=== PATIENT | female | born 1950 | race Caucasian/White ===

== ENCOUNTER 2024-06-22 11:38 | Observation (INO) | payer MEDICARE, SELFPAY ==
[2024-06-22] VITALS (12 sets, daily range): BP systolic 137–192; BP diastolic 63–98; PULSE 72–96; RESP 16–18; TEMP 36.3–36.8; O2SAT 95–98; BMI 31.7
--- NOTE | ~2024-06-22 | NM_ITS ---
EXAMINATION: NM paul stress w perfusion DATE: 06/24/2024 14:26 INDICATION: Chest pain TECHNIQUE: Rest images were obtained following intravenous administration of 8.9 mCi Tc99m tetrofosmi n (Myoview). The patient was infused intravenously with Lexiscan (Regadenoson). Then, 28.3 mCi Tc99m tetrofosmin (Myoview) was administered intravenously, and stress images were obtained. Data was recon structed into short axis and horizontal and vertical long axis SPECT images. Gated SPECT images were also obtained. COMPARISON: None. FINDINGS: There is no definite reversible or fixed perfusion abnormality on the post stress imaging t o suggest ischemia or infarction. There is normal left ventricular chamber size, wall motion and eje ction fraction. Left ventricular ejection fraction measures >70%. IMPRESSION: 1. Normal myocardial perfusion during stress. 2. Left ventricular ejection fraction measuring >70%. Reviewed, dictated and finalized at location A.
--- NOTE | ~2024-06-22 | CT_ITS ---
EXAMINATION:CT diagnostic chest w con DATE: 06/22/2024 12:35 INDICATION: Lung mass. Abnormal chest radiograph. TECHNIQUE: Computed tomography (CT) of the chest was performed with 75 mL Omnipaque 350 intravenous c ontrast. Automated exposure control and iterative reconstruction technique were employed. The dose-le ngth product (DLP) was 230.18 mGy-cm. COMPARISON: Chest single view 06/22/2024 FINDINGS: The lungs demonstrate mild atelectasis. There is a left posterior diaphragmatic hernia cont aining fat correlating with the chest radiograph abnormality. No pleural effusion. The heart size is normal. No pericardial effusion. There is an aberrant right subclavian artery. There is cortical thin alba of the kidneys. There is severe thoracic spondylosis. There is mild chronic height loss of multi ple vertebral bodies. IMPRESSION: 1. Left posterior diaphragmatic hernia containing fat correlating with the chest radiograph abnormali ty. Reviewed, dictated and finalized at location A. IMPRESSION: 1. Left posterior diaphragmatic hernia containing fat correlating with the ches t radiograph abnormality.
--- NOTE | ~2024-06-22 | XR_ITS ---
EXAMINATION: XR chest 1V portable DATE: 06/22/2024 12:04 INDICATION: Chest pain. Hypertension. TECHNIQUE: A single frontal view of the chest was obtained. COMPARISON: Chest 2 views 01/14/2007 FINDINGS: There is a mass at left lung base. There is mild atelectasis at right lung base. No pleural effusion or pneumothorax. The heart size is normal. IMPRESSION: 1. Mass at left lung base suspicious for primary bronchogenic carcinoma. Chest CT is recommended. Reviewed, dictated and finalized at location A.
--- NOTE | 2024-06-22 11:44 | ECG_ITS ---
Test Date: 2024-06-22 11:41:58 Measurements Intervals [place] Rate: 87 P: 50 NE: 159 QRS: 28 QRSD: 84 T: 13 QT: 347 QTc: 418 Interpretive Statements SINUS RHYTHM WITH OCCASIONAL VENTRICULAR PREMATURE COMPLEXES NONSPECIFIC T-WAVE ABNORMALITY No previous ECG available for comparison Electronically Signed On 06-22-2024 13:34:55 CDT by Joseph Fregoso M.D.
[2024-06-22 12:01] LABS: Basophils Absolute Auto 0.1 K/mm3 (0.0-0.1); Basophils Percent Auto 0.8 % (0.2-1.2); Eosinophils Absolute Auto 0.1 K/mm3 (0-0.3); Eosinophils Percent Auto 0.8 % (0-4.4); Hematocrit 39.7 % (37.0-47.0); Hemoglobin 13.8 g/dL (12.0-15.0); Immature Granulocyte Absolute 0.02 K/mm3 (0.00-0.031); Immature Granulocyte Percent A 0.3 % (0-0.5); Lymphocytes Absolute Auto 1.66 K/mm3 (0.9-3.2); Lymphocytes Percent Auto 25.7 % (18.3-44.2); Mean Corpuscular HGB Conc 34.8 g/dl (32-36); Mean Corpuscular Hemoglobin 31.5 pg (26-34); Mean Corpuscular Volume 90.6 fl (80-100); Mean Platelet Volume 10.2 fl (7.4-10.4); Monocytes Absolute Auto 0.8 K/mm3 (0.1-0.6); Monocytes Percent Auto 12.5 % (2.6-8.5); Neutrophils Absolute Auto 3.9 K/mm3 (1.3-6.7); Neutrophils Percent Auto 59.9 % (45.5-73.1); Platelet Count Result 232 k/mm3 (150-375); Red Blood Count 4.38 M/mm3 (4.2-5.4); Red Cell Distribution Width 12.5 % (11.5-14.5); White Blood Count 6.5 K/mm3 (4.5-10.0)
--- NOTE | 2024-06-22 12:02 | ED.CHESTPAIN ---
HPI - Chest Pain General Chief Complaint: Chest Pain Stated Complaint: Chest tightness x 30 minutes History of Present Illness HPI narrative: 74-year-old female presents to the emergency department for evaluation for chest pain that radiated to her neck into her left arm this morning. Patient started while patient as at rest on her computer. Patient denied any emotional distress. Patient states pain lasted approximately 15 minutes but was improved with nitro. Patient does have a prior history of an hypertension and patient had a stress test approximately 6 years ago Related Data Home Medications Medication Instructions Recorded Confirmed carvedilol 3.125 mg tablet 3.125 mg PO DAILY 06/22/24 06/22/24 famotidine 40 mg tablet 40 mg DAILY 06/22/24 06/22/24 furosemide 20 mg tablet 20 mg PRN PRN Edema 06/22/24 06/22/24 gabapentin 300 mg capsule 300 mg HS 06/22/24 06/22/24 losartan 100 mg tablet 100 mg DAILY 06/22/24 06/22/24 Allergies Allergy/AdvReac Type Severity Reaction Status Date / Time clarithromycin Allergy Unknown Unknown Verified 06/22/24 11:46 ezetimibe Allergy Unknown Unknown Verified 06/22/24 11:46 niacin Allergy Unknown Redness of Verified 06/22/24 11:46 Skin Pnupehq-JBM-QvI Reductase Allergy Unknown Muscle Pain Verified 06/22/24 11:46 Inhibitor [Rimslmt-Lgt-Xqb Reductase Inhibitor] Sulfa (Sulfonamide Allergy Unknown Unknown Verified 06/22/24 11:46 Antibiotics) Review of Systems Review of Systems: All systems reviewed & are unremarkable except as noted in HPI and below PMFSH Past Medical History Medical History (Updated 06/22/24 @ 18:24 by Judit Cox APRN) Cataracts, bilateral Coronary artery disease Diabetes mellitus Diabetic retinopathy Dyslipidemia Former smoker Hypertension Peripheral neuropathy Surgical History Surgical History (Updated 06/22/24 @ 18:24 by Judit Cox APRN) History of cholecystectomy Family History Family History (Updated 06/22/24 @ 18:26 by Judit Cox APRN) Sibling Cancer Pacemaker Atrial fibrillation Father Heart disease Congestive heart failure Social History Social History (Updated 06/22/24 @ 18:26 by Judit Cox APRN) Smoking status: Former smoker Second hand tobacco smoke exposure: Yes Smoking end date: 09/10/95 Alcohol intake: current Alcohol use details: drinks alcohol occasionally, nothing in the last 2 weeks Substance use: never Substance use type: does not use Do You Feel Safe in your Home?: Yes Lack of Transportation: No Lack of Food: Never True Current Housing: I Have Housing Concerned About Future Housing: No Difficulty Paying Gas/Electric Bills: No Difficulty Paying for Meds: No Currently Unemployed: No Education: High School Diploma/GED Difficulty w/ Childcare or Family Care: No Occupation/Education: retired Gender identity (if verbalized by the patient): Female Spiritual care concerns: No Exam Narrative: APPEARANCE: Well appearing, no pain, no distress, well-nourished. HEAD: normocephalic, atraumatic. EYES: PERRLA/EOMI, conjunctivae clear. NOSE: Normal no drainage EARS:TMS clear with good light reflex. THROAT: Pharynx clear, no exudate. NECK: Supple. No adenopathy, no masses. RESPIRATORY: Airway patent, respirations nonlabored. Clear to auscultation bilaterally, no rales, rhonchi, wheezing. CARDIOVASCULAR: Regular rate and rhythm without murmurs rubs or gallops. ABDOMINAL: Soft, nontender, nondistended, normal bowel sounds MUSCULOSKELETAL: Moves all extremities. Strength/ROM intact, No edema, No calf tenderness. NEURO: Alert. Cranial nerves II through XII intact. Grossly intact SKIN: Warm, dry. Normal Color Course Course Emergency Course: Patient was admitted to the IMU for further cardiac workup. Vital Signs Vital signs: Vital Signs Temperature 97.3 F L 06/22/24 11:38 Pulse Rate 82 06/22/24 11:38 Respiratory Rate 16 06/22/24 11:38 Blood Pressure 165/98 H 06/22/24 11:38 Pulse Oximetry 95 06/22/24 11:38 Oxygen Delivery Room Air 06/22/24 11:38 Temperature 97.3 F L 06/22/24 15:27 Pulse Rate 96 06/22/24 18:00 Respiratory Rate 18 06/22/24 15:27 Blood Pressure 155/75 H 06/22/24 15:27 Pulse Oximetry 96 06/22/24 15:27 Oxygen Delivery Room Air 06/22/24 11:47 MDM - Chest Pain MDM Narrative Medical decision making narrative: 74-year-old female presented to the emergency department for evaluation for chest pain. Patient had no EKG changes concerning for STEMI. Patient was afebrile with no leukocytosis and a stable hemoglobin of 13.8. Patient had a negative serial troponins. Patient was hypertensive on arrival with a blood pressure of 195 systolic. Patient did get nitro paste and this helped her pressure and symptoms significantly. Patient was pain-free at the time of admission. Case was discussed with hospitalist patient was accepted for admission to the IMU for further cardiac workup Initial chest x-ray was concerning for bronchogenic carcinoma recommended CT scan. CT scan showed this mass was a fatty hernia on the diaphragm. Differential Diagnosis Differential diagnosis: Likely unstable angina pectoris, atypical chest pain, st elevation myocardial infarction, costochondritis, chest pain and biliary colic Lab Data Attestation: I reviewed the patient's lab results. 06/22/24 11:54 06/22/24 11:54 Labs: Lab Results 06/22/24 06/22/24 Range/Units 11:54 11:54 WBC 6.5 (4.5-10.0) K/mm3 RBC 4.38 (4.2-5.4) M/mm3 Hgb 13.8 (12.0-15.0) g/dL Hct 39.7 (37.0-47.0) % MCV 90.6 (80-100) fl MCH 31.5 (26-34) pg MCHC 34.8 (32-36) g/dl RDW 12.5 (11.5-14.5) % Plt Count 232 (150-375) k/mm3 MPV 10.2 (7.4-10.4) fl Immature Gran % (Auto) 0.3 (0-0.5) % Neut % (Auto) 59.9 (45.5-73.1) % Lymph % (Auto) 25.7 (18.3-44.2) % [place] % (Auto) 12.5 H (2.6-8.5) % Eos % (Auto) 0.8 (0-4.4) % Baso % (Auto) 0.8 (0.2-1.2) % Lymph # (Auto) 1.66 (0.9-3.2) K/mm3 [place] # (Auto) 0.8 H (0.1-0.6) K/mm3 Eos # (Auto) 0.1 (0-0.3) K/mm3 Baso # (Auto) 0.1 (0.0-0.1) K/mm3 Abs Immat Gran (auto) 0.02 (0.00-0.031) K/mm3 Absolute Neuts (auto) 3.9 (1.3-6.7) K/mm3 Absolute Nucleated RBC 0.000 (0.0-0.012) K/mm3 Nucleated RBC % 0.0 (0.0-0.2) % PT 13.5 (11.1-14.7) Seconds INR 1.0 APTT 24.4 (22.3-36.8) Seconds Sodium 139 (137-145) mmol/L Potassium 3.7 (3.4-5.0) mmol/L Chloride 104 (98-107) mmol/L Carbon Dioxide 27 (22-30) mmol/L Anion Gap 8 (4-12) mmol/L BUN 16 (7-17) mg/dL Creatinine 0.70 (0.7-1.0) mg/dL Estim Creat Clear Calc 61 ml/min Estimated GFR > 60 (59 - ) Glucose 111 H (65-110) mg/dL Hemoglobin A1c 5.9 H (<5.7) % Calcium 9.4 (8.4-10.2) mg/dL Total Bilirubin 0.5 (0.2-1.3) mg/dL AST 29 (14-36) U/L ALT 29 (6-35) U/L Alkaline Phosphatase 67 (38-126) U/L Troponin I < 0.012 Cancelled (0.000-0.034) ng/mL NT-Pro-B Natriuret Pep 199 H (19.9-100) pg/mL Total Protein 7.0 (6.3-8.2) g/dL Albumin 4.2 (3.5-5.1) g/dL Imaging Data Radiologist's impression: Impressions Chest X-Ray 06/22/24 12:12 IMPRESSION: 1. Mass at left lung base suspicious for primary bronchogenic carcinoma. Chest CT is recommended. Chest CT 06/22/24 12:57 IMPRESSION: 1. Left posterior diaphragmatic hernia containing fat correlating with the chest radiograph abnormality. Discharge Plan Discharge Clinical Impression: Chest pain Patient Disposition: Still a Patient Condition: Stable Quality HEART score for chest pain patients History: moderately suspicious ECG: normal Age: > or = to 65 years Risk factors: 1 or 2 risk factors Troponin: < or = to 1x normal limit Heart score: 4
[2024-06-22 12:10] LABS: Prothrombin Time 13.5 Seconds (11.1-14.7)
[2024-06-22 12:11] LABS: Partial Thromboplastin Time 24.4 Seconds (22.3-36.8)
[2024-06-22 12:12] LABS: Alanine Aminotransferase 29 U/L (6-35); Albumin Level 4.2 g/dL (3.5-5.1); Alkaline Phosphatase 67 U/L (38-126); Anion Gap 8 mmol/L (4-12); Aspartate Amino Transferase 29 U/L (14-36); Bilirubin,Total 0.5 mg/dL (0.2-1.3); Blood Urea Nitrogen 16 mg/dL (7-17); Calcium 9.4 mg/dL (8.4-10.2); Carbon Dioxide 27 mmol/L (22-30); Chloride 104 mmol/L (98-107); Estimated CRCL calculation 61 ml/min; Estimated Glomerular Filt Rate > 60; Glucose 111 mg/dL (65-110); Potassium 3.7 mmol/L (3.4-5.0); Sodium 139 mmol/L (137-145)
[2024-06-22 12:21] LABS: NT Pro B Type Natriuretic Pept 199 pg/mL (19.9-100)
[2024-06-22 12:26] LABS: Troponin I < 0.012 ng/mL (0.000-0.034)
[2024-06-22] MEDS: NITROGLYCERIN OINTMENT 1 INCH DOSE TRANSDERM (12:37)
--- NOTE | 2024-06-22 14:09 | P.HP_ITS ---
H&P: HPI History of Present Illness Date/Time: 06/22/24 14:09 Chief Complaint: Chest pain Narrative: This is a 74 year old female with a significant past medical history of hypertension, non insulin dependant diabetes mellitus, CAD, dyslipidemia with intolerance to statins, cataracts, diabetic retinopathy, former smoker who presents to the hospital for evaluation of chest pain and tightness. Patient stated that the pain started this morning when working on her computer and was at rest. She reported that the pain was epigastric in nature which radiated to her back, left arm and neck. EMS was called. EN route to the hospital EMS gave patient sublingual nitroglycerin and an aspirin which seem to relieve her pain. She states that the pain lasted about 15 minutes. Patient states that the pain felt different than when she has attacks with her hiatal hernia. She states she has never had sustained pain with her hernia before and felt like this was cardiac in nature. She denied any fever, chills, nausea, vomiting, diarrhea, abdominal pain. she did report shortness of breath and epigastric chest pain during this episode. She denies any recent stressful events. She states that her blood pressure is well controlled with her losartan and carvedilol. She recently seen her supervisor [employer] Dr. Yu [facility] and had a normal exam at that time. Her last stress test was 8 years ago in was normal. She recently had carotid Dopplers Study which was negative. Workup in the hospital included chest x-ray which showed a mass at the left lung base suspicious for primary bronchogenic carcinoma with recommendations for chest CT. Chest CT showed left posterior diaphragmatic hernia containing. Initial labs showed a normal white blood cell count of 6.5 troponin 0.012, proBNP 199. Patient was given nitroglycerin paste while in the ED. She is being admitted in the setting for additional cardiac workup. Review of Systems Review of Systems: All systems reviewed & are unremarkable except as noted in HPI and below Constitutional: Constitutional: Reports as per HPI and Reports no additional constitutional complaints Eyes: Eyes: Reports as per HPI and Reports no additional eye complaints ENT: Reports system reviewed and no additional complaints, except as documented and Reports as per HPI Cardiovascular: Cardiovascular: Reports as per HPI and Reports no additional cardiovascular complaints Respiratory: Respiratory: Reports as per HPI and Reports no additional respiratory complaints Gastrointestinal: Gastrointestinal: Reports as per HPI and Reports no additional gastrointestinal complaints Genitourinary: Genitourinary: Reports no additional female genitourinary complaints and Reports as per HPI Musculoskeletal: Musculoskeletal: Reports no additional musculoskeletal complaints and Reports as per HPI Integumentary/Breasts: Skin/Breast: Reports system reviewed and no additional complaints, except as docu and Reports as per HPI Neurologic: Reports system reviewed and no additional complaints, except as documented and Reports as per HPI Psychiatric: Psychiatric: Reports no additional psychiatric complaints and Reports as per HPI [facility] Past Medical History Medical History (Updated 06/22/24 @ 18:24 by Judit Cox APRN) Cataracts, bilateral Coronary artery disease Diabetes mellitus Diabetic retinopathy Dyslipidemia Former smoker Hypertension Peripheral neuropathy Surgical History Surgical History (Updated 06/22/24 @ 18:24 by Judit Cox APRN) History of cholecystectomy Family History Family History (Updated 06/22/24 @ 18:26 by Judit Cox APRN) Sibling Cancer Pacemaker Atrial fibrillation Father Heart disease Congestive heart failure Social History Social History (Updated 06/22/24 @ 18:26 by Judit Cox APRN) Smoking status: Former smoker Second hand tobacco smoke exposure: Yes Smoking end date: 09/10/95 Alcohol intake: current Alcohol use details: drinks alcohol occasionally, nothing in the last 2 weeks Substance use: never Substance use type: does not use Do You Feel Safe in your Home?: Yes Lack of Transportation: No Lack of Food: Never True Current Housing: I Have Housing Concerned About Future Housing: No Difficulty Paying Gas/Electric Bills: No Difficulty Paying for Meds: No Currently Unemployed: No Education: High School Diploma/GED Difficulty w/ Childcare or Family Care: No Occupation/Education: retired Gender identity (if verbalized by the patient): Female Spiritual care concerns: No Meds Home Medications and Allergies Home Medications Medication Instructions Recorded Confirmed Type carvedilol 3.125 mg tablet 3.125 mg PO DAILY 06/22/24 06/22/24 History famotidine 40 mg tablet 40 mg DAILY 06/22/24 06/22/24 History furosemide 20 mg tablet 20 mg PRN PRN Edema 06/22/24 06/22/24 History gabapentin 300 mg capsule 300 mg HS 06/22/24 06/22/24 History losartan 100 mg tablet 100 mg DAILY 10/13/24 10/13/24 History Allergies Allergy/AdvReac Type Severity Reaction Status Date / Time clarithromycin Allergy Unknown Unknown Verified 06/22/24 11:46 ezetimibe Allergy Unknown Unknown Verified 06/22/24 11:46 niacin Allergy Unknown Redness of Verified 06/22/24 11:46 Skin Kuxjjtz-YJU-NkT Reductase Allergy Unknown Muscle Pain Verified 06/22/24 11:46 Inhibitor [Dvfuvym-Ivt-Hra Reductase Inhibitor] Sulfa (Sulfonamide Allergy Unknown Unknown Verified 06/22/24 11:46 Antibiotics) Vital Signs Vital Signs - 24 hr 06/22/24 11:38 06/22/24 11:47 06/22/24 12:38 Temperature 97.3 F L Pulse Rate 82 89 Respiratory Rate 16 17 Blood Pressure 165/98 H 192/95 H Pulse Oximetry 95 97 Oxygen Delivery Room Air Room Air 06/22/24 13:58 Temperature Pulse Rate 75 Respiratory Rate 16 Blood Pressure 137/85 Pulse Oximetry 97 Oxygen Delivery Exam Narrative: General: In no acute distress, well nourished Head: atraumatic, no encephalopathy Eyes: EOMI, PERRLA, sclera clear ENT: moist mucous membranes, nasal passages clear Neck: supple, no JVD, no adenopathy, trachea midline Cardiac: Normal S1 and S2.RRR, No murmur, gallops or friction rubs, peripheral pulses intact. Respiratory: Lungs clear to auscultation, no adventitious lung sounds, currently on room air Gastrointestinal: soft, non-distended, non-tender, normoactive bowel sounds. : voiding without difficulty. Extremities: moves all extremities well, no edema Skin: clean, dry, intact. No wounds or lesions. Neuro: Alert and oriented x4, cranial nerves intact, no neuro deficits. Psych: normal mood, normal affect, interactive H&P: Results Labs Labs: Short CBC 06/22/24 Range/Units 11:54 WBC 6.5 (4.5-10.0) K/mm3 Hgb 13.8 (12.0-15.0) g/dL Hct 39.7 (37.0-47.0) % Plt Count 232 (150-375) k/mm3 BMP 06/22/24 11:54 Sodium 139 Potassium 3.7 Chloride 104 Carbon Dioxide 27 BUN 16 Creatinine 0.70 Glucose 111 H Calcium 9.4 Cardiac Enzymes 06/22/24 06/22/24 Range/Units 11:54 11:54 Troponin I < 0.012 Cancelled (0.000-0.034) ng/mL Liver Function 06/22/24 Range/Units 11:54 Total Bilirubin 0.5 (0.2-1.3) mg/dL AST 29 (14-36) U/L ALT 29 (6-35) U/L Alkaline Phosphatase 67 (38-126) U/L Albumin 4.2 (3.5-5.1) g/dL Imaging Chest x-ray: Radiologist's impression: EXAMINATION: XR chest 1V portable DATE: 06/22/2024 12:04 INDICATION: Chest pain. Hypertension. TECHNIQUE: A single frontal view of the chest was obtained. COMPARISON: Chest 2 views 01/14/2007 FINDINGS: There is a mass at left lung base. There is mild atelectasis at right lung base. No pleural effusion or pneumothorax. The heart size is normal. IMPRESSION: 1. Mass at left lung base suspicious for primary bronchogenic carcinoma. Chest CT is recommended. Reviewed, dictated and finalized at location A. CT scan - chest: Radiologist's impression: EXAMINATION:CT diagnostic chest w con DATE: 06/22/2024 12:35 INDICATION: Lung mass. Abnormal chest radiograph. TECHNIQUE: Computed tomography (CT) of the chest was performed with 75 mL Omnipaque 350 intravenous contrast. Automated exposure control and iterative reconstruction technique were employed. The dose-length product (DLP) was 230.18 mGy-cm. COMPARISON: Chest single view 06/22/2024 FINDINGS: The lungs demonstrate mild atelectasis. There is a left posterior diaphragmatic hernia containing fat correlating with the chest radiograph abnormality. No pleural effusion. The heart size is normal. No pericardial effusion. There is an aberrant right subclavian artery. There is cortical thinning of the kidneys. There is severe thoracic spondylosis. There is mild chronic height loss of multiple vertebral bodies. IMPRESSION: 1. Left posterior diaphragmatic hernia containing fat correlating with the chest radiograph abnormality. Reviewed, dictated and finalized at location A. Assessment and Plan Assessment and plan (1) Chest pain: Code(s): R07.9 - Chest pain, unspecified Status: Acute Assessment and Plan: 06/22/24: * Patient initially reporting midsternal/epigastric chest pain that radiated to neck and down left arm that started at rest which lasted 15 minutes and was relieved with Nitroglycerin. * Troponin negative x2, ProBNP 199 * CXR read mass at left lung base suspicious for primary bronchogenic carcinoma * Chest CT with contrast revealed left posterior diaphragmatic hernia containing fat. * EKG shown NSR with PVCs, rate 87, QTc 418 * Last stress test was 8 years ago according to patient and was in [place]. * Last stress test in EMR was on 11/01/10 which was normal * Plan for echocardiogram in a.m. * Continue Nitro PRN for chest pain. * Obtain lipid panel, check TSH * Will start Protonix 40 mg BID * Continuous cardiac monitoring * Consider cardiology consultation pending workup (2) Hypertension: Code(s): I10 - Essential (primary) hypertension Status: Chronic Assessment and Plan: 06/22/24: * blood pressure 137/80 to 192/95 (3) Coronary artery disease: Code(s): I25.10 - Atherosclerotic heart disease of [place] coronary artery without angina pectoris Status: Chronic Assessment and Plan: 06/22/24: * Continue aspirin * Patient has intolerance to statin's and Zetia * check lipid panel (4) Dyslipidemia: Code(s): E78.5 - Hyperlipidemia, unspecified Status: Chronic Assessment and Plan: see above (5) Diabetes mellitus: Code(s): E11.9 - Type 2 diabetes mellitus without complications Status: Chronic Assessment and Plan: 06/22/24: * Blood sugar 111-114 * Hgb A1C 5.9 * Accu checks AC/HS * low dose SSI ordered * hypoglycemic protocol in place * Diabetic diet ordered * Diet controlled at home, not on any medications Quality VTE Prophylaxis VTE prophylaxis: pharmacologic ordered Hospitalist MIPS Advance Care Plan I have confirmed that the patient's Advanced Care Plan is present, code status is documented, or surrogate decision maker is listed in patient medical record.: Yes Medication Reconciliation I have utilized all available resources to obtain, update and review the patients current medications (includes all prescriptions, OTC, herbals, cannabis, and nutritional supplements).: Yes
--- NOTE | 2024-06-22 14:37 | ECG_ITS ---
Test Date: 2024-06-22 14:53:16 Measurements Intervals [place] Rate: 69 P: 38 MS: 152 QRS: 11 QRSD: 83 T: 3 QT: 374 QTc: 403 Interpretive Statements SINUS RHYTHM NONSPECIFIC T-WAVE ABNORMALITY Compared to ECG 06/22/2024 11:41:58 Ventricular premature complex(es) no longer present T-wave abnormality still present Electronically Signed On 06-22-2024 20:35:41 CDT by Arelis Coates M.D.
[2024-06-22 15:08] LABS: Cholesterol 188 mg/dL (0-200); HDL Direct 37 mg/dL; Triglycerides 264 mg/dL (<150)
[2024-06-22 15:18] LABS: LDL Cholesterol Direct 81 mg/dL
[2024-06-22 15:22] LABS: Troponin I < 0.012 ng/mL (0.000-0.034)
--- NOTE | 2024-06-22 15:55 | ADMGEN ---
This patient, Kary Echevarria, was admitted to IMU Room 209-01. Patient/family oriented to hospital policies and general routines including ID bracelet, bed and alarms, visiting hours, pain management, procedures, bathroom and other care routines, personal items, smoking policy, room service/diet, and visiting hours. and visitor in room, Pt has shoes, pants, shirt, phone in room with her, no complaints of chest pain at this time.Call light on lap Information on how to activate the Rapid Response Team has been discussed. Patient/Family are encouraged to report perceived risks to care and to ask questions if they do not understand what they are told or what they should do.
--- NOTE | 2024-06-22 15:57 | PC.NURSE ---
Pt finds kassandra aspirin in her bedding when getting up to ambulate to bed in IMU, pt states it is from the ambulance ride over and one of the EMT's dropped it on her, pill put into sharps box
[2024-06-22 16:49] LABS: Glucose Point of Care 114 mg/dl (65-105)
[2024-06-22 17:10] LABS: Hemoglobin A1C 5.9 % (<5.7)
[2024-06-22 18:41] LABS: Lipase 82 U/L (23-300)
[2024-06-22 20:43] LABS: Glucose Point of Care 127 mg/dl (65-105)
[2024-06-22] MEDS: ACETAMINOPHEN 325 MG TABLET 650 MG PO (21:18)
[2024-06-22] MEDS: GABAPENTIN 300 MG CAPSULE BY MOUTH (21:18)
[2024-06-22] MEDS: PANTOPRAZOLE 40 MG TABLET PO (21:18)
[2024-06-23] VITALS (18 sets, daily range): BP systolic 143–156; BP diastolic 72–80; PULSE 71–91; RESP 16–20; TEMP 36.3–36.8; O2SAT 95–99
--- NOTE | 2024-06-23 | ECHO_ITS ---
Patient Info Name: Kary Echevarria Age: 74 years : 1950 Gender: Female Ht: 62 in Wt: 180 lbs BSA: 1.92 m2 HR: 62 bpm BP: 143 / 72 mmHg Heart Rhythm: Sinus Rhythm Technical Quality: Good Exam Date: 06/23/2024 10:05 AM Exam Location: Echo Lab Patient Status: Outpatient Admit Date: 06/22/2024 Staff Ordering Physician: Judit Cox APRN Director Of Pulmonary Unit: Sheryl Guerra RDCS Attending Provider: Mayra Devine APRN Referring Physician: Brooke HEATH; Exam Type: CA echo doppler color flow Study Info Indications - chest pain Complete two-dimensional, color flow and Doppler transthoracic echocardiogram is performed. Summary 1. Complete two-dimensional, color flow and Doppler transthoracic echocardiogram is performed. 2. The left ventricle is normal size and systolic function. The LVEF is calculated to be 60-65%. Left Ventricle The left ventricle is normal size and systolic function. The LVEF is calculated to be 60-65%. Right Ventricle The right ventricle is normal size and systolic function. Left Atria The left atrial size is normal. Aortic Valve The aortic valve is trileaflet. There is no aortic regurgitation or stenosis. Pulmonic Valve The pulmonic valve is not well visualized. There is no color Doppler evidence of pulmonic valve regurgitation. Mitral Valve The mitral valve is normal. There is trace mitral regurgitation. Tricuspid Valve The tricuspid valve is normal. There is mild tricuspid regurgitation. Pulmonary Arteries The PASP is estimated to be 40 mmHg. Pericardium/Pleural Pericardium is normal in appearance with no evidence for significant pericardial effusion. Inferior Vena Cava Normal inferior vena cava with <50% collapse upon inspiration consistent with elevated right atrial pressure, 10 mmHg. Left Ventricular Outflow Tract Name Value Normal LVOT 2D LVOT Diameter 1.9 cm LVOT Doppler LVOT Peak Gradient 4 mmHg LVOT Mean Gradient 2 mmHg LVOT VTI 20 cm LVOT VTI/AV VTI Ratio 0.6 LVOT Stroke Volume 53 ml LVOT CO 4.3 l/min LVOT CI 2.2 l/min/m2 Mitral Valve Name Value Normal MV Doppler MV Decel [place] 380 cm/s2 MV PHT 62 ms MV Area (PHT) 3.5 cm2 4.0-5.0 MV Diastolic Function MV E Peak Velocity 82 cm/s MV A Peak Velocity 78 cm/s MV E/A 1.0 MV Decel Time 215 ms MV Annular TDI MV E/e' (Septal) 12.9 <=8.0 MV E/e' (Lateral) 10.6 <=8.0 MV E/e' (Average) 11.8 Tricuspid Valve Name Value Normal TV Regurgitation Doppler TR Peak Velocity 277 cm/s TR Peak Gradient 28 mmHg Estimated PAP/RSVP RA Pressure 10 mmHg <=5 PA Systolic Pressure 41 mmHg <36 RV Systolic Pressure 41 mmHg <36 Aortic Valve Name Value Normal AV Doppler AV Peak Velocity 134 cm/s AV Peak Gradient 7 mmHg AV Mean Gradient 5 mmHg AV VTI 31 cm AV Area (Cont Eq VTI) 1.7 cm2 >=3.0 AV Area (Cont Eq Conrad) 1.9 cm2 AV Regurgitation 2D LVOT Area 2.7 cm2 Ventricles Name Value Normal LV Dimensions 2D/MM IVS Diastolic Thickness (2D) 1.0 cm 0.6-1.0 LVID Diastole (2D) 3.9 cm 3.8-5.2 LVIW Diastolic Thickness (2D) 0.9 cm 0.6-0.9 LVID Systole (2D) 2.7 cm 2.2-3.5 LVOT Diameter 1.9 cm LV Mass (2D Cubed) 118.58 g 67.00-162.00 LV Mass Index (2D Cubed) 62 g/m2 43-95 Relative Wall Thickness (2D) 0.48 LV Fractional Shortening/Ejection Fraction 2D/MM LV Fractional Shortening (2D) 32 % 27-45 LV EF (2D Teicholz) 61 % 54-74 LV Diastolic Volume (4C MOD) 101 ml LV EF (4C MOD) 75 % LV Diastolic Volume (2C MOD) 76 ml LV EF (2C MOD) 52 % LV Diastolic Volume (BP MOD) 91 ml 46-106 LV Diastolic Volume Index (BP MOD) 47 ml/m2 29-61 LV Systolic Volume (BP MOD) 32 ml 14-42 LV Systolic Volume Index (BP MOD) 17 ml/m2 8-24 LV EF (BP MOD) 65 % 54-74 LV Diastolic Length (4C) 7.0 cm LV Systolic Length (4C) 5.1 cm LV Stroke Volume (4C MOD) 76 ml Atria Name Value Normal LA Dimensions LA Volume (4C A-L) 38 ml LA Volume (BP A-L) 40 ml RA Dimensions RA Area (4C) 11.7 cm2 <=18.0 Report Signatures
[2024-06-23 05:21] LABS: Basophils Percent Auto 0.6 % (0.2-1.2); Eosinophils Absolute Auto 0.1 K/mm3 (0-0.3); Eosinophils Percent Auto 1.3 % (0-4.4); Hematocrit 40.2 % (37.0-47.0); Hemoglobin 13.7 g/dL (12.0-15.0); Immature Granulocyte Absolute 0.01 K/mm3 (0.00-0.031); Immature Granulocyte Percent A 0.2 % (0-0.5); Lymphocytes Absolute Auto 2.37 K/mm3 (0.9-3.2); Lymphocytes Percent Auto 38.5 % (18.3-44.2); Mean Corpuscular HGB Conc 34.1 g/dl (32-36); Mean Platelet Volume 10.2 fl (7.4-10.4); Monocytes Absolute Auto 0.8 K/mm3 (0.1-0.6); Monocytes Percent Auto 12.7 % (2.6-8.5); Neutrophils Absolute Auto 2.9 K/mm3 (1.3-6.7); Neutrophils Percent Auto 46.7 % (45.5-73.1); Platelet Count Result 221 k/mm3 (150-375); Red Blood Count 4.42 M/mm3 (4.2-5.4); Red Cell Distribution Width 12.4 % (11.5-14.5); White Blood Count 6.2 K/mm3 (4.5-10.0)
[2024-06-23 05:37] LABS: Alanine Aminotransferase 26 U/L (6-35); Albumin Level 3.7 g/dL (3.5-5.1); Alkaline Phosphatase 61 U/L (38-126); Anion Gap 7 mmol/L (4-12); Aspartate Amino Transferase 27 U/L (14-36); Bilirubin,Total 0.5 mg/dL (0.2-1.3); Blood Urea Nitrogen 13 mg/dL (7-17); Calcium 9.2 mg/dL (8.4-10.2); Carbon Dioxide 26 mmol/L (22-30); Chloride 108 mmol/L (98-107); Estimated CRCL calculation 68 ml/min; Estimated Glomerular Filt Rate > 60; Glucose 101 mg/dL (65-110); Potassium 3.8 mmol/L (3.4-5.0); Sodium 141 mmol/L (137-145)
[2024-06-23 08:07] LABS: Glucose Point of Care 110 mg/dl (65-105)
[2024-06-23] MEDS: carvediloL 3.125 MG TABLET PO (08:39)
[2024-06-23] MEDS: ASPIRIN 81 MG CHEWABLE TABLET PO (08:39)
[2024-06-23] MEDS: PANTOPRAZOLE 40 MG TABLET PO ×2 (08:39→20:36)
[2024-06-23] MEDS: LOSARTAN POTASSIUM 100 MG TABLET BY MOUTH (08:39)
[2024-06-23] MEDS: ENOXAPARIN 40 MG/0.4 ML SYRINGE SUB-Q (08:39)
--- NOTE | 2024-06-23 10:54 | PM.IMPN ---
Progress Note: A&P Assessment and Plan (1) Chest pain: Code(s): R07.9 - Chest pain, unspecified Status: Acute Assessment and Plan: Chest pain atypical, about half hour after eating and taking medications, however description concerning for cardiac etiology vs esophageal spasm (given relief with nitro) Also reports severe reflux and recently started H2 nora with her PCP with minimal relief. She reports stool studies were sent that she will get results from today She reported midsternal/epigastric chest pain that radiated to neck and down left arm that started at rest which lasted 15 minutes and was relieved with Nitroglycerin. Otherwise, she reports her activity tolerance is good. Walks 3000 steps a day, no shortness of breath or chest pain with activity. RELEVANT HX Hx hyperlipidemia intolerant of statins. Primary is following Possible remote cath over 10 years ago at [facility]. She doesn't recall that it was abnormal Last stress test was 8 years ago according to patient and was in [place]. Last stress test in EMR was on 11/01/10 which was normal LABS Troponin negative x3, ProBNP 199 Lipid panel cholesterol 188, LDL 81, HDL 37, elevated triglycerides 264 TSH 1.050 IMAGING CXR read mass at left lung base suspicious for primary bronchogenic carcinoma, however Chest CT showed a left posterior diaphragmatic hernia corresonding to chest radiograph abormality EKG shown NSR with PVCs, rate 87, QTc 418 PLAN Continue Nitro PRN for chest pain PPI b.i.d Start Protonix 40 mg BID Continuous cardiac monitoring Cardiology consultation if stress test positive NPO post midnight for stress echo (2) Hypertension: Code(s): I10 - Essential (primary) hypertension Status: Chronic Assessment and Plan: Home meds: Losartan 100 mg daily, carvedilol 3.25 daily, furosemide 20 mg p.r.n. for edema blood pressure 137/80 to 192/95 --holding beta-nora for stress test (3) Coronary artery disease: Code(s): I25.10 - Atherosclerotic heart disease of [place] coronary artery without angina pectoris Status: Chronic Assessment and Plan: Continue aspirin Patient has intolerance to statin's and Zetia Triglycerides elevated on lipid panel, defer to PCP given myalgias with multiple medications (4) Dyslipidemia: Code(s): E78.5 - Hyperlipidemia, unspecified Status: Chronic Assessment and Plan: see above (5) Diabetes mellitus: Code(s): E11.9 - Type 2 diabetes mellitus without complications Status: Chronic Assessment and Plan: Blood sugar controlled, 100-127. 06/22 Hgb A1C 5.9. Accu checks AC/HS low dose SSI ordered hypoglycemic protocol in place Diabetic diet ordered Diet controlled at home, not on any medications Time Spent With Patient Time: 57 minutes Subjective Date/time seen: 06/23/24 10:54 Interval history: No chest pain, had resolved with nitro. No symptoms overnight Holding coreg, planning stress echo in AM. Cardiology consult if new changes Exam Narrative: General: In no acute distress, well nourished Head: atraumatic, no encephalopathy Eyes: EOMI, PERRLA, sclera clear ENT: moist mucous membranes, nasal passages clear Neck: supple, no JVD, no adenopathy, trachea midline Cardiac: Normal S1 and S2.RRR, No murmur, gallops or friction rubs, peripheral pulses intact. Respiratory: Lungs clear to auscultation, no adventitious lung sounds, currently on room air Gastrointestinal: soft, non-distended, non-tender, normoactive bowel sounds. : voiding without difficulty. Extremities: moves all extremities well, no edema Skin: clean, dry, intact. No wounds or lesions. Neuro: Alert and oriented x4, cranial nerves intact, no neuro deficits. Psych: normal mood, normal affect, interactive Objective Data Vital Signs Vital Signs: Vital Signs - 24 hr 06/22/24 11:38 06/22/24 11:47 06/22/24 12:38 Temperature 97.3 F L Pulse Rate 82 89 Respiratory Rate 16 17 Blood Pressure 165/98 H 192/95 H Pulse Oximetry 95 97 Oxygen Delivery Room Air Room Air 06/22/24 13:58 06/22/24 15:27 06/22/24 16:00 Temperature 97.3 F L Pulse Rate 75 72 74 Respiratory Rate 16 18 Blood Pressure 137/85 155/75 H Pulse Oximetry 97 96 Oxygen Delivery 06/22/24 18:00 06/22/24 20:10 06/22/24 20:00 Temperature 97.9 F Pulse Rate 96 83 83 Respiratory Rate 16 Blood Pressure 155/88 H Pulse Oximetry 96 Oxygen Delivery 06/22/24 20:00 06/22/24 22:00 06/22/24 23:54 Temperature Pulse Rate 83 83 77 Respiratory Rate 16 Blood Pressure Pulse Oximetry 96 Oxygen Delivery Room Air 06/22/24 23:57 06/22/24 23:55 06/23/24 02:00 Temperature 98.2 F Pulse Rate 77 84 78 Respiratory Rate 16 16 Blood Pressure 152/63 H Pulse Oximetry 98 98 Oxygen Delivery Room Air 06/23/24 03:54 06/23/24 03:56 06/23/24 04:36 Temperature 97.5 F L Pulse Rate 77 77 77 Respiratory Rate 16 18 Blood Pressure 143/72 H Pulse Oximetry 98 95 Oxygen Delivery Room Air 06/23/24 05:24 06/23/24 08:18 06/23/24 08:39 Temperature 98.2 F Pulse Rate 71 71 83 Respiratory Rate 18 Blood Pressure 153/78 H Pulse Oximetry 96 Oxygen Delivery 06/23/24 08:39 Temperature Pulse Rate Respiratory Rate Blood Pressure Pulse Oximetry 96 Oxygen Delivery Room Air Intake/Output Intake/Output: Intake & Output 06/20/24 06/21/24 06/22/24 06/23/24 23:59 23:59 23:59 23:59 Intake Total 240 460 Balance 240 460 Meds/Results Medications: Active Medications Generic Name Dose Route Start Last Admin Trade Name Freq PRN Reason Stop Dose Admin Acetaminophen 650 mg 06/22/24 14:06 06/22/24 21:18 Acetaminophen 325 Mg Tablet PO 650 mg Q4H PRN Administration Mild Pain (1-3) or Fever Aspirin 81 mg 06/23/24 08:00 06/23/24 08:39 Aspirin 81 Mg Chewable Tablet PO 81 mg DAILY@0800 SARAH Administration Carvedilol 3.125 mg 06/23/24 09:00 06/23/24 08:39 Carvedilol 3.125 Mg Tablet PO 3.125 mg DAILY SARAH Administration Dextrose 12.5 gm 06/22/24 14:45 Dextrose 50% 25 Gm/50 Ml Syringe IV PUSH PRN PRN Hypoglycemia Protocol Enoxaparin Sodium 40 mg 06/23/24 09:00 06/23/24 08:39 Enoxaparin 40 Mg/0.4 Ml Syringe SUB-Q 40 mg DAILY SARAH Administration Gabapentin 300 mg 06/22/24 21:00 06/22/24 21:18 Gabapentin 300 Mg Capsule BY MOUTH 300 mg HS SARAH Administration Glucagon 1 mg 06/22/24 14:45 Glucagon For Inj 1 Mg Vial IM PRN PRN Hypoglycemia Protocol Glucose 15 gm 06/22/24 14:45 Glucose Oral Gel 15 Gm Of Glucse In 37.5 Gm Tube PO PRN PRN Hypoglycemia Protocol Dextrose 1,000 mls @ 100 mls/hr 06/22/24 14:45 Dextrose 5% 1,000 Ml IVPB PRN PRN Hypoglycemia Protocol Insulin Aspart 2 - 5 units 06/23/24 08:00 06/23/24 08:39 Insulin Aspart (*Bkc) 100 Units/Ml SUB-Q Not Given TIDWM SARAH Protocol Insulin Aspart 1 - 2 units 06/22/24 21:00 06/22/24 23:43 Insulin Aspart (*Bkc) 100 Units/Ml SUB-Q Not Given HS SARAH Protocol Losartan Potassium 100 mg 06/23/24 09:00 06/23/24 08:39 Losartan Potassium 100 Mg Tablet BY MOUTH 100 mg DAILY SARAH Administration Nitroglycerin 0.4 mg 06/22/24 14:14 Nitroglycerin Sl 0.4 Mg Tablet SUBLINGUAL Q5MIN PRN chest pain Ondansetron HCl 4 mg 06/22/24 14:06 Ondansetron Inj 4 Mg/2 Ml Vial IV PUSH Q6H PRN Nausea And Vomiting Pantoprazole Sodium 40 mg 06/22/24 21:00 06/23/24 08:39 Pantoprazole 40 Mg Tablet PO 40 mg Q12HR SARAH Administration Perflutren Lipid Microsphere 0 ml 06/22/24 14:02 Perflutren Lipid Microspheres 1.5 Ml Vial Diluted To 10 Ml Total Volume IV PUSH 06/25/24 14:02 ONCE PRN adequate visualization Protocol Radiology Results: ITS Impressions Chest X-Ray 06/22/24 12:12 IMPRESSION: 1. Mass at left lung base suspicious for primary bronchogenic carcinoma. Chest CT is recommended. Chest CT 06/22/24 12:57 IMPRESSION: 1. Left posterior diaphragmatic hernia containing fat correlating with the chest radiograph abnormality. Labs Labs: Laboratory Results - last 24 hr 06/22/24 06/22/24 06/22/24 11:54 11:54 14:47 WBC 6.5 RBC 4.38 Hgb 13.8 Hct 39.7 MCV 90.6 MCH 31.5 MCHC 34.8 RDW 12.5 Plt Count 232 MPV 10.2 Immature Gran % (Auto) 0.3 Neut % (Auto) 59.9 Lymph % (Auto) 25.7 [place] % (Auto) 12.5 H Eos % (Auto) 0.8 Baso % (Auto) 0.8 Lymph # (Auto) 1.66 [place] # (Auto) 0.8 H Eos # (Auto) 0.1 Baso # (Auto) 0.1 Abs Immat Gran (auto) 0.02 Absolute Neuts (auto) 3.9 Absolute Nucleated RBC 0.000 Nucleated RBC % 0.0 PT 13.5 INR 1.0 APTT 24.4 Sodium 139 Potassium 3.7 Chloride 104 Carbon Dioxide 27 Anion Gap 8 BUN 16 Creatinine 0.70 Estim Creat Clear Calc 61 Estimated GFR > 60 Glucose 111 H POC Capillary Glucose Hemoglobin A1c 5.9 H Calcium 9.4 Magnesium 2.0 Total Bilirubin 0.5 AST 29 ALT 29 Alkaline Phosphatase 67 Troponin I < 0.012 Cancelled NT-Pro-B Natriuret Pep 199 H Total Protein 7.0 Albumin 4.2 Triglycerides Cholesterol LDL Cholesterol Direct HDL Direct Lipase TSH 06/22/24 06/22/24 06/22/24 14:47 14:47 16:42 WBC RBC Hgb Hct MCV MCH MCHC RDW Plt Count MPV Immature Gran % (Auto) Neut % (Auto) Lymph % (Auto) [place] % (Auto) Eos % (Auto) Baso % (Auto) Lymph # (Auto) [place] # (Auto) Eos # (Auto) Baso # (Auto) Abs Immat Gran (auto) Absolute Neuts (auto) Absolute Nucleated RBC Nucleated RBC % PT INR APTT Sodium Potassium Chloride Carbon Dioxide Anion Gap BUN Creatinine Estim Creat Clear Calc Estimated GFR Glucose POC Capillary Glucose 114 H Hemoglobin A1c Calcium Magnesium Cancelled Total Bilirubin AST ALT Alkaline Phosphatase Troponin I < 0.012 NT-Pro-B Natriuret Pep Total Protein Albumin Triglycerides 264 H Cholesterol 188 LDL Cholesterol Direct 81 HDL Direct 37 Lipase 82 TSH 1.050 Cancelled 06/22/24 06/23/24 06/23/24 20:30 05:00 07:46 WBC 6.2 RBC 4.42 Hgb 13.7 Hct 40.2 MCV 91.0 MCH 31.0 MCHC 34.1 RDW 12.4 Plt Count 221 MPV 10.2 Immature Gran % (Auto) 0.2 Neut % (Auto) 46.7 Lymph % (Auto) 38.5 [place] % (Auto) 12.7 H Eos % (Auto) 1.3 Baso % (Auto) 0.6 Lymph # (Auto) 2.37 [place] # (Auto) 0.8 H Eos # (Auto) 0.1 Baso # (Auto) 0.0 Abs Immat Gran (auto) 0.01 Absolute Neuts (auto) 2.9 Absolute Nucleated RBC 0.000 Nucleated RBC % 0.0 PT INR APTT Sodium 141 Potassium 3.8 Chloride 108 H Carbon Dioxide 26 Anion Gap 7 BUN 13 Creatinine 0.60 L Estim Creat Clear Calc 68 Estimated GFR > 60 Glucose 101 POC Capillary Glucose 127 H 110 H Hemoglobin A1c Calcium 9.2 Magnesium Total Bilirubin 0.5 AST 27 ALT 26 Alkaline Phosphatase 61 Troponin I NT-Pro-B Natriuret Pep Total Protein 7.0 Albumin 3.7 Triglycerides Cholesterol LDL Cholesterol Direct HDL Direct Lipase TSH Quality VTE Prophylaxis VTE prophylaxis: pharmacologic ordered Hospitalist MIPS Advance Care Plan I have confirmed that the patient's Advanced Care Plan is present, code status is documented, or surrogate decision maker is listed in patient medical record.: Yes Medication Reconciliation I have utilized all available resources to obtain, update and review the patients current medications (includes all prescriptions, OTC, herbals, cannabis, and nutritional supplements).: Yes
[2024-06-23 12:41] LABS: Glucose Point of Care 107 mg/dl (65-105)
[2024-06-23 17:25] LABS: Glucose Point of Care 100 mg/dl (65-105)
[2024-06-23] MEDS: GABAPENTIN 300 MG CAPSULE BY MOUTH (20:36)
[2024-06-23 20:37] LABS: Glucose Point of Care 101 mg/dl (65-105)
[2024-06-24] VITALS (11 sets, daily range): BP systolic 139–153; BP diastolic 68–72; PULSE 69–82; RESP 16–20; TEMP 36.4–36.5; O2SAT 93–98
[2024-06-24 05:37] LABS: Basophils Percent Auto 0.6 % (0.2-1.2); Eosinophils Absolute Auto 0.1 K/mm3 (0-0.3); Eosinophils Percent Auto 0.9 % (0-4.4); Hematocrit 39.9 % (37.0-47.0); Hemoglobin 13.7 g/dL (12.0-15.0); Immature Granulocyte Absolute 0.01 K/mm3 (0.00-0.031); Immature Granulocyte Percent A 0.1 % (0-0.5); Lymphocytes Absolute Auto 2.57 K/mm3 (0.9-3.2); Mean Corpuscular HGB Conc 34.3 g/dl (32-36); Mean Corpuscular Hemoglobin 31.8 pg (26-34); Mean Corpuscular Volume 92.6 fl (80-100); Mean Platelet Volume 10.6 fl (7.4-10.4); Monocytes Absolute Auto 0.9 K/mm3 (0.1-0.6); Monocytes Percent Auto 12.5 % (2.6-8.5); Neutrophils Absolute Auto 3.4 K/mm3 (1.3-6.7); Neutrophils Percent Auto 48.9 % (45.5-73.1); Platelet Count Result 216 k/mm3 (150-375); Red Blood Count 4.31 M/mm3 (4.2-5.4); Red Cell Distribution Width 12.4 % (11.5-14.5); White Blood Count 6.9 K/mm3 (4.5-10.0)
[2024-06-24 05:51] LABS: Alanine Aminotransferase 25 U/L (6-35); Albumin Level 3.7 g/dL (3.5-5.1); Alkaline Phosphatase 59 U/L (38-126); Anion Gap 6 mmol/L (4-12); Aspartate Amino Transferase 25 U/L (14-36); Bilirubin,Total 0.5 mg/dL (0.2-1.3); Blood Urea Nitrogen 12 mg/dL (7-17); Calcium 9.2 mg/dL (8.4-10.2); Carbon Dioxide 30 mmol/L (22-30); Chloride 106 mmol/L (98-107); Estimated CRCL calculation 68 ml/min; Estimated Glomerular Filt Rate > 60; Glucose 95 mg/dL (65-110); Potassium 4.1 mmol/L (3.4-5.0); Sodium 142 mmol/L (137-145)
--- NOTE | 2024-06-24 07:42 | P.PNIM_ITS ---
Subjective Date/time seen: 06/24/24 07:42 Interval history: Planned stress echo but TTE with suboptimal images. No WMA's. Discuss with cardiology lexiscan vs other/outpatient Objective Data Vital Signs Vital Signs: Vital Signs - 24 hr 06/23/24 08:18 06/23/24 08:39 06/23/24 08:39 Temperature 98.2 F Pulse Rate 71 83 Respiratory Rate 18 Blood Pressure 153/78 H Pulse Oximetry 96 96 Oxygen Delivery Room Air 06/23/24 12:00 06/23/24 16:52 06/23/24 08:00 Temperature 97.7 F 97.6 F Pulse Rate 71 78 Respiratory Rate 20 18 Blood Pressure 144/80 H 151/74 H Pulse Oximetry 96 98 Oxygen Delivery Room Air 06/23/24 12:00 06/23/24 16:00 06/23/24 08:00 Temperature Pulse Rate 73 Respiratory Rate Blood Pressure Pulse Oximetry Oxygen Delivery Room Air Room Air 06/23/24 10:00 06/23/24 12:00 06/23/24 14:00 Temperature Pulse Rate 74 72 74 Respiratory Rate Blood Pressure Pulse Oximetry Oxygen Delivery 06/23/24 16:00 06/23/24 18:00 06/23/24 20:15 Temperature 97.4 F L Pulse Rate 73 84 91 Respiratory Rate 16 Blood Pressure 156/79 H Pulse Oximetry 99 Oxygen Delivery 06/23/24 20:00 06/23/24 20:00 06/23/24 22:00 Temperature Pulse Rate 75 75 78 Respiratory Rate 16 Blood Pressure Pulse Oximetry 99 Oxygen Delivery Room Air 06/23/24 23:39 06/24/24 00:00 06/24/24 00:00 Temperature 97.5 F L Pulse Rate 75 82 82 Respiratory Rate 16 16 Blood Pressure 147/80 H Pulse Oximetry 95 95 Oxygen Delivery Room Air 06/24/24 03:00 06/24/24 03:56 06/24/24 03:58 Temperature Pulse Rate 80 74 77 Respiratory Rate 16 Blood Pressure Pulse Oximetry 95 Oxygen Delivery Room Air 06/24/24 04:54 06/24/24 05:42 06/24/24 07:28 Temperature 97.5 F L 97.7 F Pulse Rate 76 82 69 Respiratory Rate 18 18 Blood Pressure 139/71 152/68 H Pulse Oximetry 98 95 Oxygen Delivery Intake/Output Intake/Output: Intake & Output 06/21/24 06/22/24 06/23/24 06/24/24 23:59 23:59 23:59 23:59 Intake Total 240 1440 450 Balance 240 1440 450 Meds/Results Medications: Active Medications Generic Name Dose Route Start Last Admin Trade Name Freq PRN Reason Stop Dose Admin Acetaminophen 650 mg 06/22/24 14:06 06/22/24 21:18 Acetaminophen 325 Mg Tablet PO 650 mg Q4H PRN Administration Mild Pain (1-3) or Fever Aspirin 81 mg 06/23/24 08:00 06/23/24 08:39 Aspirin 81 Mg Chewable Tablet PO 81 mg DAILY@0800 SARAH Administration Carvedilol 3.125 mg 06/23/24 09:00 06/23/24 08:39 Carvedilol 3.125 Mg Tablet PO 3.125 mg DAILY SARAH Administration Dextrose 12.5 gm 06/22/24 14:45 Dextrose 50% 25 Gm/50 Ml Syringe IV PUSH PRN PRN Hypoglycemia Protocol Enoxaparin Sodium 40 mg 06/23/24 09:00 06/23/24 08:39 Enoxaparin 40 Mg/0.4 Ml Syringe SUB-Q 40 mg DAILY SARAH Administration Gabapentin 300 mg 06/22/24 21:00 06/23/24 20:36 Gabapentin 300 Mg Capsule BY MOUTH 300 mg HS SARAH Administration Glucagon 1 mg 06/22/24 14:45 Glucagon For Inj 1 Mg Vial IM PRN PRN Hypoglycemia Protocol Glucose 15 gm 06/22/24 14:45 Glucose Oral Gel 15 Gm Of Glucse In 37.5 Gm Tube PO PRN PRN Hypoglycemia Protocol Hydralazine HCl 10 mg 06/24/24 09:00 Hydralazine 10 Mg Tablet PO TID SARAH Dextrose 1,000 mls @ 100 mls/hr 06/22/24 14:45 Dextrose 5% 1,000 Ml IVPB PRN PRN Hypoglycemia Protocol Insulin Aspart 2 - 5 units 06/23/24 08:00 06/23/24 17:27 Insulin Aspart (*Bkc) 100 Units/Ml SUB-Q Not Given TIDWM SARAH Protocol Insulin Aspart 1 - 2 units 06/22/24 21:00 06/23/24 20:37 Insulin Aspart (*Bkc) 100 Units/Ml SUB-Q Not Given HS SARAH Protocol Losartan Potassium 100 mg 06/23/24 09:00 06/23/24 08:39 Losartan Potassium 100 Mg Tablet BY MOUTH 100 mg DAILY SARAH Administration Nitroglycerin 0.4 mg 06/22/24 14:14 Nitroglycerin Sl 0.4 Mg Tablet SUBLINGUAL Q5MIN PRN chest pain Ondansetron HCl 4 mg 06/22/24 14:06 Ondansetron Inj 4 Mg/2 Ml Vial IV PUSH Q6H PRN Nausea And Vomiting Pantoprazole Sodium 40 mg 06/22/24 21:00 06/23/24 20:36 Pantoprazole 40 Mg Tablet PO 40 mg Q12HR SARAH Administration Radiology Results: ITS Impressions Chest X-Ray 06/22/24 12:12 IMPRESSION: 1. Mass at left lung base suspicious for primary bronchogenic carcinoma. Chest CT is recommended. Chest CT 06/22/24 12:57 IMPRESSION: 1. Left posterior diaphragmatic hernia containing fat correlating with the chest radiograph abnormality. Labs Labs: Laboratory Results - last 24 hr 06/23/24 06/23/24 06/23/24 07:46 11:41 16:51 WBC RBC Hgb Hct MCV MCH MCHC RDW Plt Count MPV Immature Gran % (Auto) Neut % (Auto) Lymph % (Auto) [place] % (Auto) Eos % (Auto) Baso % (Auto) Lymph # (Auto) [place] # (Auto) Eos # (Auto) Baso # (Auto) Abs Immat Gran (auto) Absolute Neuts (auto) Absolute Nucleated RBC Nucleated RBC % Sodium Potassium Chloride Carbon Dioxide Anion Gap BUN Creatinine Estim Creat Clear Calc Estimated GFR Glucose POC Capillary Glucose 110 H 107 H 100 Calcium Total Bilirubin AST ALT Alkaline Phosphatase Total Protein Albumin 06/23/24 06/24/24 20:28 04:50 WBC 6.9 RBC 4.31 Hgb 13.7 Hct 39.9 MCV 92.6 MCH 31.8 MCHC 34.3 RDW 12.4 Plt Count 216 MPV 10.6 H Immature Gran % (Auto) 0.1 Neut % (Auto) 48.9 Lymph % (Auto) 37.0 [place] % (Auto) 12.5 H Eos % (Auto) 0.9 Baso % (Auto) 0.6 Lymph # (Auto) 2.57 [place] # (Auto) 0.9 H Eos # (Auto) 0.1 Baso # (Auto) 0.0 Abs Immat Gran (auto) 0.01 Absolute Neuts (auto) 3.4 Absolute Nucleated RBC 0.000 Nucleated RBC % 0.0 Sodium 142 Potassium 4.1 Chloride 106 Carbon Dioxide 30 Anion Gap 6 BUN 12 Creatinine 0.60 L Estim Creat Clear Calc 68 Estimated GFR > 60 Glucose 95 POC Capillary Glucose 101 Calcium 9.2 Total Bilirubin 0.5 AST 25 ALT 25 Alkaline Phosphatase 59 Total Protein 7.0 Albumin 3.7
[2024-06-24 08:29] LABS: Glucose Point of Care 106 mg/dl (65-105)
[2024-06-24] MEDS: hydrALAZINE 10 MG TABLET PO (08:58)
[2024-06-24] MEDS: LOSARTAN POTASSIUM 100 MG TABLET BY MOUTH (08:58)
[2024-06-24] MEDS: PANTOPRAZOLE 40 MG TABLET PO (08:58)
[2024-06-24] MEDS: ASPIRIN 81 MG CHEWABLE TABLET PO (08:58)
[2024-06-24] MEDS: ENOXAPARIN 40 MG/0.4 ML SYRINGE SUB-Q (08:58)
--- NOTE | 2024-06-24 09:17 | EST_ITS ---
Patient Info Name: Kary Echevarria Age: 74 years : 1950 Gender: Female Ht: 62 in Wt: 175 lbs BSA: 1.90 m2 HR: 71 bpm BP: 153 / 93 mmHg Exam Date: 06/24/2024 1:10 PM Exam Location: Echo Lab Patient Status: Inpatient Admit Date: 06/22/2024 Staff Ordering Physician: Jaelyn Valdez MD Attending Provider: Mayra Devine APRN Exercise Technologist: Christine Aparicio CT Nurse: Ara Suarez APN Exam Type: CA stress paul w NM Study Info A regadenoson stress test was performed. Summary 1. <1mm horizontal ST depressions in the inferolateral leads with T-wave inversions. Stress test is equivocal for ischemia. 2. Occasional PVCs. 3. Please correlate with nuclear medicine images, reported separately. 4. Stress test supervised by Ara Suarez NP. Stress test interpreted by Jaelyn Valdez MD. Protocol: Lexiscan Stress ECG Details Stage: REST Duration (min): 1 min : 40 sec HR (bpm): 75 SBP (mmHg): 153 DBP (mmHg): 93 Stage: REST Duration (min): 13 min : 18 sec HR (bpm): 75 SBP (mmHg): 153 DBP (mmHg): 93 Stage: STAGE 1 Duration (min): 1 min : 0 sec HR (bpm): 97 SBP (mmHg): 195 DBP (mmHg): 71 Stage: RECOVERY Duration (min): 1 min : 0 sec HR (bpm): 99 SBP (mmHg): 195 DBP (mmHg): 71 Stage: RECOVERY Duration (min): 2 min : 0 sec HR (bpm): 91 SBP (mmHg): 195 DBP (mmHg): 71 Stage: RECOVERY Duration (min): 3 min : 0 sec HR (bpm): 89 SBP (mmHg): 195 DBP (mmHg): 71 Stage: RECOVERY Duration (min): 3 min : 29 sec HR (bpm): 90 SBP (mmHg): 170 DBP (mmHg): 81 Rest HR: 75 bpm Peak HR: 100 bpm Rest Sys BP: 153 mmHg Peak Sys BP: 195 mmHg Max Pred HR: 147 bpm % Max Pred HR: 68 % Target HR: 125 bpm Max RPP: 19,500 bpm*mmHg Total Time: 1 min : 0 sec Rest Granados BP: 93 mmHg Peak Granados BP: 71 mmHg Total Dose: 0.4 mg Resting ECG Sinus rhythm. Nonspecific STTW abnormality. Stress ECG <1mm horizontal ST depressions in the inferolateral leads with T-wave inversions. Stress test is equivocal for ischemia. Arrhythmias Occasional PVCs. Report Signatures
--- NOTE | 2024-06-24 11:13 | PM.CNCAR ---
Assessment and Plan Assessment and plan (1) Chest pain: Code(s): R07.9 - Chest pain, unspecified Status: Acute Assessment and Plan: Given risk factors for heart disease, will obtain Lexiscan. If Lexiscan negative, patient can be discharged home with outpatient follow up with her primary classification and treatment director, Dr. Lawler. (2) Hypertension: Code(s): I10 - Essential (primary) hypertension Status: Chronic Assessment and Plan: Continue home antihypertensive regimen. (3) Dyslipidemia: Code(s): E78.5 - Hyperlipidemia, unspecified Status: Chronic Assessment and Plan: Intolerant to statins. (4) Diabetes mellitus: Code(s): E11.9 - Type 2 diabetes mellitus without complications Status: Chronic Assessment and Plan: Management as per primary team. History of Present Illness History of Present Illness Consult date/time: 06/24/24 11:13 Requesting physician: Mayra Devine APRN Consult reason: chest pain Reason For Visit: Chest Pain Narrative: This is a 74 year old female with hypertension, diabetes mellitus, hyperlipidemia, former smoker who presented to [facility] for chest pain. Had chest pain that occurred on Sunday morning around 9:30 AM. Lasted for about 30 minutes - 1 hour. Had occurred shortly after eating breakfast (had leftover chicken and rice from a [place] restaurant). Pain radiated to left arm. Resolved with NTG by EMS. No prior cardiac history. Primary classification and treatment director is Dr. Lawler with [facility]. Has not had recurrence of chest pain since Sunday. Troponins negative x 2. CXR showed mass at left lung base. A follow up Chest CT showed left posterior diaphragmatic hernia containing fat. EKGs with sinus rhythm, occasional PVCs, nonspecific STTW abnormality. TTE showed preserved LVEF, no significant valvular disease. Review of Systems Review of Systems: All systems reviewed & are unremarkable except as noted in HPI and below (HPI) [facility] Past Medical History Medical History (Updated 06/22/24 @ 18:24 by Judit Cox APRN) Cataracts, bilateral Coronary artery disease Diabetes mellitus Diabetic retinopathy Dyslipidemia Former smoker Hypertension Peripheral neuropathy Surgical History Surgical History (Updated 06/22/24 @ 18:24 by Judit Cox APRN) History of cholecystectomy Family History Family History (Updated 06/22/24 @ 18:26 by Judit Cox APRN) Sibling Cancer Pacemaker Atrial fibrillation Father Heart disease Congestive heart failure Social History Social History (Updated 06/22/24 @ 18:26 by Judit Cox APRN) Smoking status: Former smoker Second hand tobacco smoke exposure: Yes Smoking end date: 09/10/95 Alcohol intake: current Alcohol use details: drinks alcohol occasionally, nothing in the last 2 weeks Substance use: never Substance use type: does not use Do You Feel Safe in your Home?: Yes Lack of Transportation: No Lack of Food: Never True Current Housing: I Have Housing Concerned About Future Housing: No Difficulty Paying Gas/Electric Bills: No Difficulty Paying for Meds: No Currently Unemployed: No Education: High School Diploma/GED Difficulty w/ Childcare or Family Care: No Occupation/Education: retired Gender identity (if verbalized by the patient): Female Spiritual care concerns: No Meds Home Medications and Allergies Home Medications Medication Instructions Recorded Confirmed Type carvedilol 3.125 mg tablet 3.125 mg PO DAILY 06/22/24 06/22/24 History famotidine 40 mg tablet 40 mg DAILY 06/22/24 06/22/24 History furosemide 20 mg tablet 20 mg PRN PRN Edema 06/22/24 06/22/24 History gabapentin 300 mg capsule 300 mg HS 06/22/24 06/22/24 History losartan 100 mg tablet 100 mg DAILY 06/22/24 06/22/24 History Allergies Allergy/AdvReac Type Severity Reaction Status Date / Time clarithromycin Allergy Unknown Unknown Verified 06/22/24 11:46 ezetimibe Allergy Unknown Unknown Verified 06/22/24 11:46 niacin Allergy Unknown Redness of Verified 06/22/24 11:46 Skin [id number] Reductase Allergy Unknown Muscle Pain Verified 06/22/24 11:46 Inhibitor [Ajpwgsv-Bcl-Zfy Reductase Inhibitor] Sulfa (Sulfonamide Allergy Unknown Unknown Verified 06/22/24 11:46 Antibiotics) Vital Signs Vital Signs - 24 hr 06/23/24 12:00 06/23/24 16:52 06/23/24 12:00 Temperature 36.5 C 36.4 C Pulse Rate 71 78 Respiratory Rate 20 18 Blood Pressure 144/80 H 151/74 H Pulse Oximetry 96 98 Oxygen Delivery Room Air 06/23/24 16:00 06/23/24 12:00 06/23/24 14:00 Temperature Pulse Rate 72 74 Respiratory Rate Blood Pressure Pulse Oximetry Oxygen Delivery Room Air 06/23/24 16:00 06/23/24 18:00 06/23/24 20:15 Temperature 36.3 C L Pulse Rate 73 84 91 Respiratory Rate 16 Blood Pressure 156/79 H Pulse Oximetry 99 Oxygen Delivery 06/23/24 20:00 06/23/24 20:00 06/23/24 22:00 Temperature Pulse Rate 75 75 78 Respiratory Rate 16 Blood Pressure Pulse Oximetry 99 Oxygen Delivery Room Air 06/23/24 23:39 06/24/24 00:00 06/24/24 00:00 Temperature 36.4 C L Pulse Rate 75 82 82 Respiratory Rate 16 16 Blood Pressure 147/80 H Pulse Oximetry 95 95 Oxygen Delivery Room Air 06/24/24 03:00 06/24/24 03:56 06/24/24 03:58 Temperature Pulse Rate 80 74 77 Respiratory Rate 16 Blood Pressure Pulse Oximetry 95 Oxygen Delivery Room Air 06/24/24 04:54 06/24/24 05:42 06/24/24 07:28 Temperature 36.4 C L 36.5 C Pulse Rate 76 82 69 Respiratory Rate 18 18 Blood Pressure 139/71 152/68 H Pulse Oximetry 98 95 Oxygen Delivery 06/24/24 08:00 06/24/24 08:00 06/24/24 10:00 Temperature Pulse Rate 70 73 Respiratory Rate Blood Pressure Pulse Oximetry Oxygen Delivery Room Air Exam Const: General: comfortable and no acute distress HENMT: Mouth: Yes moist mucous membranes Eyes: General: appearance normal, both eyes and all related structures Sclera: sclerae normal Resp: Effort & Inspection: normal respiratory effort Cardio: Rate: regular rate Rhythm: regular rhythm Heart sounds: no murmurs Skin: General skin exam: normal color Neuro: Speech: normal speech Psych: Mental Status: mental status grossly normal Affect: normal affect Results Labs and Meds 06/24/24 04:50 06/24/24 04:50 Lab results: Cardiac Enzymes 06/24/24 Range/Units 04:50 AST 25 (14-36) U/L CBC 06/24/24 Range/Units 04:50 WBC 6.9 (4.5-10.0) K/mm3 RBC 4.31 (4.2-5.4) M/mm3 Hgb 13.7 (12.0-15.0) g/dL Hct 39.9 (37.0-47.0) % Plt Count 216 (150-375) k/mm3 Lymph # (Auto) 2.57 (0.9-3.2) K/mm3 [place] # (Auto) 0.9 H (0.1-0.6) K/mm3 Eos # (Auto) 0.1 (0-0.3) K/mm3 Baso # (Auto) 0.0 (0.0-0.1) K/mm3 Comprehensive Metabolic Panel 06/24/24 Range/Units 04:50 Sodium 142 (137-145) mmol/L Potassium 4.1 (3.4-5.0) mmol/L Chloride 106 (98-107) mmol/L Carbon Dioxide 30 (22-30) mmol/L BUN 12 (7-17) mg/dL Creatinine 0.60 L (0.7-1.0) mg/dL Glucose 95 (65-110) mg/dL Calcium 9.2 (8.4-10.2) mg/dL AST 25 (14-36) U/L ALT 25 (6-35) U/L Alkaline Phosphatase 59 (38-126) U/L Total Protein 7.0 (6.3-8.2) g/dL Albumin 3.7 (3.5-5.1) g/dL Intake and Output 06/23/24 06/24/24 06/24/24 23:59 07:59 15:59 Intake Total 740 450 Balance 740 450 Intake: Oral 740 450 Other: # Unmeasured Voids 4 2 Patient Weight 06/24/24 23:59 Weight 77.4 kg
[2024-06-24 12:13] LABS: Glucose Point of Care 115 mg/dl (65-105)
--- NOTE | 2024-06-24 12:18 | PC.NURSE ---
Pt to nuclear medicine via wheelchair for stress test
--- NOTE | 2024-07-07 14:34 | PM.DS ---
DS: Admitting Diagnosis Discharge Date 06/24/24 Admitting Diagnosis Acute chest pain DS: Discharge Diagnosis Discharge Diagnosis (1) Non-cardiac chest pain: Code(s): R07.89 - Other chest pain Status: Acute (2) GERD (gastroesophageal reflux disease): Code(s): K21.9 - Gastro-esophageal reflux disease without esophagitis Status: Acute DS: Summary Hospital Course Reason for hospitalization: Copied from [facility] 06/22: 74 year old female with a significant past medical history of hypertension, non insulin dependant diabetes mellitus, CAD, dyslipidemia with intolerance to statins, cataracts, diabetic retinopathy, former smoker who presents to the hospital for evaluation of chest pain and tightness. Patient stated that the pain started this morning when working on her computer and was at rest. She reported that the pain was epigastric in nature which radiated to her back, left arm and neck. EMS was called. EN route to the hospital EMS gave patient sublingual nitroglycerin and an aspirin which seem to relieve her pain. She states that the pain lasted about 15 minutes. Patient states that the pain felt different than when she has attacks with her hiatal hernia. She states she has never had sustained pain with her hernia before and felt like this was cardiac in nature. She denied any fever, chills, nausea, vomiting, diarrhea, abdominal pain. she did report shortness of breath and epigastric chest pain during this episode. She denies any recent stressful events. She states that her blood pressure is well controlled with her losartan and carvedilol. She recently seen her broach trouble shooter Dr. Yu [facility] and had a normal exam at that time. Her last stress test was 8 years ago in was normal. She recently had carotid Dopplers Study which was negative. Workup in the hospital included chest x-ray which showed a mass at the left lung base suspicious for primary bronchogenic carcinoma with recommendations for chest CT. Chest CT showed left posterior diaphragmatic hernia containing. Initial labs showed a normal white blood cell count of 6.5 troponin 0.012, proBNP 199. Patient was given nitroglycerin paste while in the ED. She is being admitted in the setting for additional cardiac workup. Hospital Course: ?Kary Echevarria was admitted for evaluation of atypical chest pain, found to be noncardiac, suspect gastric Noncardiac chest pain?Suspect related to GERD and possible esophageal spasm vs 2/2 uncontrolled HTN. She reports significant reflux symptoms and is following with her PCP for that. She was admitted for symptoms that were concerning for ACS.? TTE was done but suboptimal images, no WMA?s.? Blood pressure was above goal on arrival, which could be an alternative cause for pain. Also has a left posterior diaphragmatic hernia Cardiology was consulted and lexiscan was done on 06/24, showed no evidence of ischemia.? She will follow up with her primary broach trouble shooter, Dr. Lawler 06/24/24 Lexiscan 1.? Normal myocardial perfusion during stress. 2. Left ventricular ejection fraction measuring >70%. Continued nitro prn for discharge (may be treating esophageal spasm) 06/22 Chest x-ay 1. Mass at left lung base suspicious for primary bronchogenic carcinoma. Chest CT is recommended. 06/22/[address] FINDINGS: The lungs demonstrate mild atelectasis. There is a left posterior diaphragmatic hernia containing fat correlating with the chest radiograph abnormality. No pleural effusion. The heart size is normal. No pericardial effusion. There is an aberrant right subclavian artery. There is cortical thinning of the kidneys. There is severe thoracic spondylosis. There is mild chronic height loss of multiple vertebral bodies. IMPRESSION: 1. Left posterior diaphragmatic hernia containing fat correlating with the chest radiograph abnormality HTN Continued Losartan 100 mg daily, carvedilol 3.25 daily, furosemide 20 mg p.r.n. for edema blood pressure 137/80 to 192/95. Held beta nora temporarily for stress test, resumed prior to discharge.? BP 153/72 at discharge. Further titration of medications per PCP GERD?switched H2 nora to PPI during admission, changed to BID, with Pepcid PRN. Can also use Maalox prn. Hx CAD HLD Treatment of HTN as noted Continue ASA She has an intolerance to statins and Zetia Triglycerides elevated on lipid panel, defer to PCP given myalgias with multiple medications DMII?Blood sugar controlled, 100-127. 06/22 Hgb A1C 5.9. Continue consistent carb diet . Status at Discharge Cognitive/behavioral status at discharge: A&Ox4 Time Spent with Patient Time attestation: Total time spent providing and/or coordinating discharge services: 48 minutes Exam Narrative: General - Awake and alert. No acute distress Eyes - PERRLA, EOM intact ENT - No thrush, No erythema Neck - No noticeable or palpable swelling Lymph Nodes - No lymphadenopathy Cardiovascular - RRR no m/r/g, no JVD Lungs: Clear to auscultation, No wheezing, use of accessory muscles, no crackles or wheezes. Skin - Skin warm and dry, no wounds or rashes Abdomen - Normal bowel sounds, abdomen soft and nontender Extremities - No edema, cyanosis or clubbing Musculoskeletal - 5/5 strength, normal range of motion, no swollen or erythematous joints. Neurological ? Alert and oriented x 3, CN 2-12 grossly intact. Psych: Normal mood and affect Discharge Plan Discharge Attending physician on discharge: Mayra Devine Consulting providers: Jaelyn Valdez; Judit Cox; Joseph Fregoso; Jefry Steiner V.; Arelis Coates; Pedro Doss; Fitz Dyson Discharging Clinician: Mayra Devine Anticipated Discharge Date/Time: 06/24/24 15:04 Patient Disposition: Home Health Service Activity: january shower Diet: heart healthy Wound Care Instructions: other - see discharge instructions Discharge Instructions: Follow up with your PCP in 1-2 weeks. Ok to use maalox intermittently for gastric pain Patient Instructions: Regadenoson (By injection), Chest Pain (GEN), Nuclear Stress Test (GEN) Stand Alone Forms: General Discharge Information Follow-up/Referrals: Leona,MD Duglas [Primary Care Provider] - Discharge Medications: New pantoprazole 40 mg Tablet,Delayed Release (Dr/Ec) 40 mg PO Q12HR 30 Days Qty: 60 0RF nitroglycerin 400 mcg/spray spray,non-aerosol 1 spray translingual Q5M PRN (Reason: chest pain) Qty: 4.9 0RF Rx Instructions: For chest pain. Call 911 if you have persistent chest pain. Not exceed 3 doses per episode. OK to change to tablets per patient/insurance Continued carvedilol 3.125 mg tablet 3.125 mg PO DAILY gabapentin 300 mg capsule 300 mg HS furosemide 20 mg tablet 20 mg PRN PRN (Reason: Edema) losartan 100 mg tablet 100 mg DAILY Changed famotidine 40 mg tablet 40 mg PO DAILY PRN (Reason: Acid Reflux) Qty: 30 0RF Date of admission: 06/22/24 14:03 Primary Care Provider: LeonaDuglas Admitting Provider: Travis Barnard Attending physician on admission: Mayra Devine Condition: Stable Hospitalist MIPS Heart Failure (Exclusion) Patient has history of Heart Transplant or Left Ventricular Assistive Device?: No IF YES, STOP HERE Heart Failure (Qualifier) Patient has current or prior documentation of LVEF less than or equal to 40%, or mod/servere depressed LVSF?: No IF NO, STOP HERE
== END 2024-06-24 16:23 | disposition home health service (06) ==
LOC: ANHED 13:51 → ANHIMU 14:37
PROVIDERS: Nurse Practitioner Acute Care; Admitting Provider General Practice; Emergency Provider Emergency Medicine; PCP Internal Medicine; Visit Provider Nurse Practitioner Acute Care
DX: R07.89 Other chest pain (principal); R06.02 Shortness of breath; I10 Essential (primary) hypertension; K21.9 Gastro-esophageal reflux disease without esophagitis; K44.9 Diaphragmatic hernia without obstruction or gangrene; R91.8 Other nonspecific abnormal finding of lung field; I25.10 Atherosclerotic heart disease of native coronary artery without angina pectoris; E78.5 Hyperlipidemia, unspecified; E11.319 Type 2 diabetes mellitus with unspecified diabetic retinopathy without macular edema; E11.42 Type 2 diabetes mellitus with diabetic polyneuropathy; E11.36 Type 2 diabetes mellitus with diabetic cataract; H26.9 Unspecified cataract; Z87.891 Personal history of nicotine dependence; Z79.899 Other long term (current) drug therapy
CPT/HCPCS: 36415; 71045; 71260; 78452; 80053; 80061; 82948; 83036; 83690; 83735; 83880; 84443; 84484; 85025; 85610; 85730; 93005; 93017; 93306; 96372; 99285; A9270; A9502; G0378; J1650; J2785; Q9967

== ENCOUNTER 2024-10-29 00:28 | Day surgery (SDC) | payer MEDICARE, SELFPAY ==
[2024-10-13 15:12] VITALS: BMI 31.8
--- OUTSIDE RECORDS SUMMARY | 2024-10-29 00:32 | XMS_ITS | Clinical Summary ---
Author Organization [facility] Address [address] [place] [address] Care Team Providers Care Cmm Operator Name Role Phone Duglas Walters MD Primary Care Provider Allergies Active Allergy Reactions Criticality Noted Date Comments Clarithromycin Unknown 09/06/2022 Niacin Itching Low 12/19/2011 Sulfa (Sulfonamide Antibiotics) Rash Medium 08/11 Sulfa Dyne Hives High 12/19/2011 Medications aspirin 81 mg enteric coated tablet Take by mouth 03/24/20 22 Active carvediloL (COREG) 3.125 mg tablet carvedilol 3.125 mg tablet 05/17/20 22 Active influenza quadrivalent (Fluzone HighDose Quad -21 PF) 240 mcg/0.7 mL syringe Fluzone High-Dose Quad (PF) 240 mcg/0.7 mL IM syringe ADM 0.7ML IM UTD Active furosemide (LASIX) 20 mg tablet furosemide 20 mg tablet Active losartan (COZAAR) 100 mg tablet losartan 100 mg tablet TAKE 1 TABLET BY MOUTH EVERY DAY 11/19/19 19 Active magnesium oxide (MAG-OX) 400 mg (241.3 mg elemental magnesium) tablet magnesium oxide 400 mg (241.3 mg magnesium) tablet TAKE 1 TABLET BY MOUTH TWICE DAILY 02/06/20 20 Active montelukast (SINGULAIR) 10 mg tablet montelukast 10 mg tablet TAKE 1 TABLET BY MOUTH EVERY DAY Active triamcinolone (Kenalog) 10 mg/mL injection Kenalog 10 mg/mL suspension for injection In office injection administered by the provider Active lidocaine (XYLOCAINE) 10 mg/mL (1 %) injection lidocaine (PF) 10 mg/mL (1 %) injection solution In office injection administered by the provider Active amitriptyline (ELAVIL) 25 mg tabletIndications: Chronic tension-type headache, not intractable Take one tablet po qhs for one week, then two tablets po qhs 60 tablet 3 08/28/20 Active rizatriptan INFORMATION TECHNOLOGY DATA ANALYST (MAXALT-INFORMATION TECHNOLOGY DATA ANALYST) 10 mg disintegrating tabletIndications: Migraine Take 1 tablet (10 mg total) by mouth every 2 (two) hours as needed for migraine May repeat in 2 hours if unresolved. Do not exceed 30 mg in 24 hours. 9 tablet 3 08/28/20 Active Active Problems Problem Noted Date Diagnosed Date Chronic tension-type headache, not intractable 1 10/29/2022 Scalp pain 08/28/2023 Medical History Medical History Date Comments Headache, tension-type Hypertension Cataract Family History Medical History Relation Name Comments Colon cancer Father's Brother 1 Kidney cancer Father's Brother 2 Relation Name Status Comments Father's Brother 1 Father's Brother 2 Alive Social History Tobacco Use Types Packs/Day Years Used Date Smoking Tobacco: Never Smokeless Tobacco: Never Tobacco Cessation:Counseling Given: Not Answered Comments Unknown Sex and Gender Information Value Date Recorded Sex Assigned at Not on file Legal Sex Female 10:47 PM MAINTENANCE INSPECTOR Gender Identity Not on file Sexual Orientation Not on file Obstetrics History Last Filed Vital Signs Vital Sign Reading Time Taken Comments Blood Pressure 161/87 08/28/2023 7:46 AM MAINTENANCE INSPECTOR Pulse 75 08/28/2023 7:46 AM MAINTENANCE INSPECTOR Temperature - - Respiratory Rate - - Oxygen Saturation 94% 08/28/2023 7:46 AM MAINTENANCE INSPECTOR Inhaled Oxygen Concentration - - Weight 78.5 kg (173 lb) 08/28/2023 7:46 AM MAINTENANCE INSPECTOR Height 157.5 cm (5' 2 ) 08/28/2023 7:46 AM MAINTENANCE INSPECTOR Body Mass Index 31.64 08/28/2023 7:46 AM MAINTENANCE INSPECTOR Plan of Treatment Health Maintenance Due Date Last Done Comments Albumin Creatinine Ratio, Urine 1951 Colon Cancer Screening-Colonoscopy 1951 Depression Screening 1951 Fall Risk Assessment 1950 Hemoglobin A1C 1951 Hepatitis C Screening 1951 Osteoporosis Screening-Bone Density Scan 1950 eGFR 1950 Dilated Eye Exam 1951 Foot Exam 1951 Lipid Panel 1951 Pneumococcal vaccine 65+ (1 of 2 - PCV) 1957 Zoster Vaccine (1 of 2) 2001 Well Visit 65+ 02/26/2016 Covid-19 Vaccine (3 - 2023-2 5 season) 2024 02/05/2021, 01/15/2021 Influenza Vaccine (#1) 2024 , 07/20/2021, 06/23/2020, Additional history exists Breast Cancer Screening-Mammogram 09/07/2024 09/07/2023, 09/06/2022, 12/22/2013, Additional history exists DTaP/Tdap/Td Vaccine (2 - Td or Tdap) 04/10/2033 04/10/2023, 04/08/2001 Hepatitis B Screening Completed 04/08/2001, 001 Procedures Procedure Name Priority Date/Time Associated Diagnosis Comments SCREENING MAMMOGRAM BILATERAL W ROBERT Schedule Routine, Read Routine (OP Routine) 09/07/2023 10:31 AM MAINTENANCE INSPECTOR Screening mammogram, encounter for from Last 3 Months or Most Recently Relevant to Health Maintenance Results * Screening Mammogram Bilateral W Robert (09/07/2023 10:31 AM MAINTENANCE INSPECTOR) Anatomical Region Laterality Modality Breast Bilateral Mammography Narrative 09/07/2023 2:56 PM MAINTENANCE INSPECTOR Mammogram Technique: Bilateral Digital Breast Tomosynthesis, Bilateral C-view 2D Screening mammogram. Views obtained: bilateral craniocaudal and bilateral mediolateral oblique. Computer Aided Detection was performed. Mammogram Findings: The present examination has been compared to prior imaging studies performed at [facility] on 09/06/2022, and at [facility]. [place], [place] on 06/03/2019 and 10/17/2021. There are scattered areas of fibroglandular density. There is no suspicious abnormality in either breast. Impression: There is no mammographic evidence of malignancy. Annual screening mammography is recommended. OVERALL FINAL ASSESSMENT: BI-RADS CATEGORY 1: Negative. Procedure Note Kim Hale MD - 09/07/2023 Mammogram Technique: Bilateral Digital Breast Tomosynthesis, Bilateral C-view 2D Screening mammogram. Views obtained: bilateral craniocaudal and bilateral mediolateral oblique. Computer Aided Detection was performed. Mammogram Findings: The present examination has been compared to prior imaging studies performed at [facility] on 09/06/2022, and at [place], [place] on 06/03/2019 and 10/17/2021. There are scattered areas of fibroglandular density. There is no suspicious abnormality in either breast. Impression: There is no mammographic evidence of malignancy. Annual screening mammography is recommended. OVERALL FINAL ASSESSMENT: BI-RADS CATEGORY 1: Negative. us Self Screening Mammogram IMG MAMMO PROCEDURES Fi nal Result from Last 3 Months or Most Recently Relevant to Health Maintenance Insurance MEDICARE SOLUTIONS MED[employer]ARE [employer]UTIONS Care Teams Cmm Operator Relationship Specialty Start Date End Date Duglas Walters MD PCP - General Internal Medicine 07/05/22
--- OUTSIDE RECORDS SUMMARY | 2024-10-29 00:32 | XMS_ITS | Encounter Summary ---
Author Organization [facility] Address [address] [place] [address] Care Team Providers Care Transplant Immunologist Name Role Phone Homer Mckeon MD Primary Care Provider + Encounter Details Date Type Department Care Team (Late st Contact Info) Description 08/06/2007 Outpatient Historical [facility] Shnaa Rodriguez MD [address] [place] [address] [address] [address] Abnormal Mammogram, Unspecified (Primary Dx) Social History Tobacco Use Types Packs/Day Years Used Date Smoking Tobacco: Never Assessed Comments Unknown Sex and Gender Information Value Date Recorded Sex Assigned at Not on file Legal Sex Female 4:22 AM GROUP DYNAMICS INSTRUCTOR Gender Identity Not on file Sexual Orientation Not on file documented as of this encounter Plan of Treatment Not on file documented as of this encounter Visit Diagnoses Diagnosis Abnormal mammogram, unspecified- Primary documented in this encounter Care Teams Transplant Immunologist Relationship Specialty Start Date End Date Homer Mckeon MD PCP - General Internal Medicine 12/11/11 documented as of this encounter
--- OUTSIDE RECORDS SUMMARY | 2024-10-29 00:32 | XMS_ITS | Clinical Summary ---
Author Organization [facility] Address [address] [place] [address] Care Team Providers Care Security Auditor Name Role Phone Unavailable Primary Care Provider Unavailabl e Source Comments [facility],non-owned Affiliates and Associated Physician Practices is amultiple site organization consisting of ambulatory clinics and hospital sitesin [place], [place], [place] and [place]. This disclosure is being madepursuant to the Care Everywhere program and may not contain all information available regarding this patient. Last updated 18.[employer] [facility] Allergies Active Allergy Reactions Criticality Noted Date Comments Niacin Itching 04/10/2023 Immunizations Name Administration Dates Next Due INFLUENZA VACCINE, HIGH-DOSE , QUADR. (FLUZONE HIGH-DOSE QUADRIVALENT; 65Y+), 0.7 ML ([id number]) 06/12/2019 TDAP (7yrs+) 04/10/2023 Social History Tobacco Use Types Packs/Day Years Used Date Smoking Tobacco: Never Assessed Sex and Gender Information Value Date Recorded Sex Assigned at Not on file Gender Identity Not on file Sexual Orientation Not on file Last Filed Vital Signs Vital Sign Reading Time Taken Comments Blood Pressure 177/83 04/19/2023 1:43 PM CDT Pulse 81 04/19/2023 1:43 PM CDT Temperature 36.3 C (97.4 F) 04/19/2023 1:43 PM CDT Respiratory Rate 16 04/19/2023 1:43 PM CDT Oxygen Saturation 97% 04/19/2023 1:43 PM CDT Inhaled Oxygen Concentration - - Weight 77.1 kg (170 lb) 04/19/2023 1:43 PM CDT Height 157.5 cm (5' 2 ) 04/19/2023 1:43 PM CDT Body Mass Index 31.09 04/19/2023 1:43 PM CDT Plan of Treatment Health Maintenance Due Date Last Done Comments BONE DENSITY TESTING 1950 COLOGUARD (AGES 45-75) - COLON CA SCREENING [address] COLONOGRAPHY - COLON CA SCREENING 1950 FIT - COLON CA SCREENING 1950 FLEX SIG - COLON CA SCREENING 1950 LIPID TESTING 1950 MAMMOGRAM 1950 HEPATITIS C SCREENING 02/20/1969 PNEUMOCOCCAL VACCINE 50+ (1 of 1 - PCV) 2001 ZOSTER VACCINE (1 of 2) 2001 COVID-19 VACCINE (3 - season) 2024 02/05/2021, 01/15/2021 INFLUENZA VACCINE (#1) 2024 , 07/20/2021, 06/23/2020, Additional history exists DEPRESSION SCREENING 09/10/2024 MEDICARE AWV CALENDAR YEAR 2024 Respiratory Syncytial Virus (RSV) Vaccine Pt: or over 60 yrs (1 - 1-dose 75+ series) 2026 COLONOSCOPY - COLON CA SCREENING 02/16/2031 02/16/2021 Colorectal Cancer Screening 02/16/2031 DTAP/TDAP/TD VACCINES (2 - Td or Tdap) 04/10/2033 04/10/2023 HEPATITIS B VACCINE Aged Out No longe r eligible based on patient's age to complete this topic HIB VACCINE Aged Out No longer eligi ble based on patient's age to complete this topic HPV VACCINE Aged Out No longer eligi ble based on patient's age to complete this topic MENINGOCOCCAL (Group B) VACCINE Aged Out No longer eligible based on patient's age to complete this topic MENINGOCOCCAL VACCINE Aged Out No era cleve eligible based on patient's age to complete this topic
--- OUTSIDE RECORDS SUMMARY | 2024-10-29 00:32 | XMS_ITS | Referral Summary ---
Author Organization [facility] Address [address] [place] [address] Care Team Providers Care Wound Care Specialist Name Role Phone Duglas Walters MD Primary [...] qhs 60 tablet 3 08/28/20 Active rizatriptan GLOBE CHANGER (MAXALT-GLOBE CHANGER) 10 mg disintegrating tabletIndications: Migraine Take 1 tablet (10 mg total) by mouth every 2 (two) hours as needed for migraine May repeat in 2 hours if unresolved. Do not exceed 30 mg in 24 hours. 9 tablet 3 08/28/20 Active Active Problems Problem Noted Date Diagnosed Date Chronic tension-type headache, not intractable 1 10/29/2022 Scalp pain 08/28/2023 Social History Tobacco Use Types Packs/Day Years Used Date Smoking Tobacco: Never Smokeless Tobacco: Never Tobacco Cessation:Counseling Given: Not Answered Comments Unknown Sex and Gender Information Value Date Recorded Sex Assigned at Not on file Legal Sex Female 10:47 PM SECURITIES AND REAL ESTATE DIRECTOR Gender Identity Not on file Sexual Orientation Not on file Last Filed Vital Signs Vital Sign Reading Time Taken Comments Blood Pressure 161/87 08/28/2023 7:46 AM SECURITIES AND REAL ESTATE DIRECTOR Pulse 75 08/28/2023 7:46 AM SECURITIES AND REAL ESTATE DIRECTOR Temperature - - Respiratory Rate - - Oxygen Saturation 94% 08/28/2023 7:46 AM SECURITIES AND REAL ESTATE DIRECTOR Inhaled Oxygen Concentration - - Weight 78.5 kg (173 lb) 08/28/2023 7:46 AM SECURITIES AND REAL ESTATE DIRECTOR Height 157.5 cm (5' 2 ) 08/28/2023 7:46 AM SECURITIES AND REAL ESTATE DIRECTOR Body Mass Index 31.64 08/28/2023 7:46 AM SECURITIES AND REAL ESTATE DIRECTOR Plan of Treatment Not on file Procedures Procedure Name Priority Date/Time Associated Diagnosis Comments SCREENING MAMMOGRAM BILATERAL W ROBERT Schedule Routine, Read Routine (OP Routine) 09/07/2023 10:31 AM SECURITIES AND REAL ESTATE DIRECTOR Screening mammogram, encounter for from Last 3 Months or Most Recently Relevant to Health Maintenance Results * Screening Mammogram Bilateral W Robert (09/07/2023 10:31 AM SECURITIES AND REAL ESTATE DIRECTOR) Anatomical Region Laterality Modality Breast Bilateral Mammography Narrative 09/07/2023 2:56 PM SECURITIES AND REAL ESTATE DIRECTOR Mammogram Technique: Bilateral Digital Breast Tomosynthesis, Bilateral C-view 2D Screening mammogram. Views obtained: bilateral craniocaudal and bilateral mediolateral oblique. Computer Aided Detection was performed. Mammogram Findings: The present examination has been compared to prior imaging studies performed at [facility] on 09/06/2022, and at [place], [place] on 06/03/2019 and 10/17/2021. There are [...] compared to prior imaging studies performed at [facility] on 09/06/2022, and at [place], [place] on 06/03/2019 and 10/17/2021. There are [...] Insurance MEDICARE SOLUTIONS MEDICARE SOLUTIONS Care Teams Wound Care Specialist Relationship Specialty Start Date End Date Duglas Walters MD PCP - General Internal Medicine 07/05/22
--- OUTSIDE RECORDS SUMMARY | 2024-10-29 00:32 | XMS_ITS | Patient Health Summary ---
Author Organization [facility] 5 examples Address [address] [place] [address] Care Team Providers Care Biometrics Experimentalist Name Role Phone Unavailable Primary Care Provider Unavailabl e Note from [facility],non-owned Affiliates and Associated Physician Practices is amultiple site organization consisting of ambulatory clinics and hospital sitesin [place], [place], [place] and [place]. This disclosure is being madepursuant to the Care Everywhere program and may not contain all information available regarding this patient. Last updated 18.[facility] Allergies * Niacin(Itching) Immunizations * INFLUENZA VACCINE, HIGH-DOSE, QUADR. (FLUZONE HIGH-DOSE QUADRIVALENT; 65Y+), 0.7 ML (HD-IIV4)(Given 06/12/2019) * TDAP (7yrs+)(Given 04/10/2023) Social History Tobacco Use Types Packs/Day Years [...] Mass Index 31.09 04/19/2023 1:43 PM CDT Procedures * ED LACERATION REPAIR(Performed 04/10/2023) * CT CERVICAL SPINE WO CONTRAST(Performed 04/10/2023) Performed for Fall, initial encounter * CT HEAD WO CONTRAST(Performed 04/10/2023) Performed for Fall, initial encounter * XR TIBIA FIBULA RIGHT 2VW(Performed 04/10/2023) Performed for Fall, initial encounter * XR KNEE RIGHT 3VW(Performed 04/10/2023) Performed for Fall, initial encounter Results * Laceration Repair (04/10/2023 6:24 PM CDT) Narrative Mckinley Bowman MD - 04/10/2023 6:24 PM CDT Jose Luis Dallas MD 04/10/2023 7:54 PM Laceration Repair Date/Time: 04/10/2023 6:24 PM Performed by: Jose Luis Dallas MD Authorized by: Vince Saavedra MD Consent: Consent obtained: Verbal Consent given by: Patient Risks discussed: Infection, poor cosmetic result and need for additional repair Alternatives discussed: No treatment [place] protocol: Relevant documents present and verified: yes Test results available: yes Imaging studies available: yes Required blood products, implants, devices, and special equipment available: yes Site/side marked: yes Immediately prior to procedure, a time out was called: yes Patient identity confirmed: Arm band and verbally with patient Anesthesia: Anesthesia method: Local infiltration Local anesthetic: Lidocaine 1% w/o epi Laceration details: Location: Scalp Scalp location: Frontal Length (cm): 4 Depth (mm): 2 Exploration: Hemostasis achieved with: Direct pressure Imaging outcome: foreign body not noted Wound exploration: entire depth of wound visualized Wound extent: no nerve damage noted, no underlying fracture noted and no vascular damage noted Contaminated: no Treatment: Area cleansed with: Saline Amount of cleaning: Extensive Irrigation method: Pressure wash Visualized foreign bodies/material removed: no Debridement: None Undermining: None Scar revision: no Layers/structures repaired: Deep subcutaneous Deep subcutaneous: Suture size: 4-0 Suture material: Vicryl Suture technique: Simple interrupted Number of sutures: 7 Skin repair: Repair method: Primo Number of primo: 11 Approximation: Approximation: Close Repair type: Repair type: Simple Post-procedure details: Dressing: Antibiotic ointment Procedure completion: Tolerated well, no immediate complications Vince Saavedra MD PROCEDURE/MINOR CHERISE GICAL ORDERABLES * CT CERVICAL SPINE WO CONTRAST (04/10/2023 4:58 PM CDT) Anatomical Region Laterality Modality Spine Computed Tomogra phy 04/10/2023 5:08 PM CDT Impressions 04/10/2023 5:55 PM CDT IMPRESSION: 1.No acute intracranial abnormality. 2.No acute fracture or traumatic malalignment of the cervical spine. Report dictated by Art Hung MD (compliance vice president). I, Carlos Pacheco MD, PhD have personally reviewed and interpreted this examination/study. > Interpreting Provider: Carlos Pacheco MD, PhD on 04/10/2023 5:55 PM Narrative 04/10/2023 5:55 PM CDT EXAM: CT HEAD WO CONTRAST, CT CERVICAL SPINE WO CONTRAST, DATE/TIME OF EXAM: 04/10/2023 5:02 PM, LOCATION: [facility] HISTORY: W19.XXXA: Fall, initial encounter ADDITIONAL CLINICAL INFORMATION: Ordering Provider Reason For Exam: fall, lac to forehead (accession [id number]), fall (accession [id number]) EXAMINATION: CT scan of the head and cervical spine without intravenous contrast TECHNIQUE: CT of the head and cervical spine was performed without intravenous contrast according to standard protocol. CT dose reduction technique was used, including Automated Exposure Control. COMPARISON: No prior similar studies are available for comparison. FINDINGS: HEAD: Streak/beam hardening artifact from patient's dental amalgam partially limits assessment of the posterior fossa. Within this limitation, the following assessment is made: BRAIN PARENCHYMA: No acute hemorrhage, large vascular territory infarct, or mass effect. White matter is within normal limits for age. Mild generalized parenchymal volume loss, which is commensurate for age. VENTRICLES/EXTRA-AXIAL SPACES: No ventriculomegaly or extra-axial collection. Basal cisterns are patent. EXTRACRANIAL STRUCTURES: No acute osseous abnormality. Osseous structures are demineralized. Large laceration of the yiyjetr-yp-ihtsr frontal scalp at the vertex associated with mild soft tissue edema/trace blood products. Paranasal sinuses, nasal cavity, and mastoid air cells are clear. Bilateral lens replacement; otherwise, orbits are unremarkable. Minimal calcific atherosclerosis of the carotid siphons. CERVICAL SPINE: ALIGNMENT: Normal. ATLANTOAXIAL JOINT: The dens is intact, the lateral masses of C1 are normally aligned relative to C2, and the atlantodental interval is normal. BONES: Vertebral body heights are maintained without evidence of acute fracture. Osseous structures are demineralized. DISCS: Multilevel disc space narrowing, which is notably vpux-lz-eednyljg at the C6-C7 level and mild elsewhere. DEGENERATIVE CHANGES: Overall mild multilevel degenerative changes, characterized by varying degrees of facet arthropathy and uncovertebral joint hypertrophy. Incidentally noted osseous fusion of the bilateral C2-C3 facets and partial fusion of the C2-C3 spinous processes. SPINAL CANAL/NEUROFORAMEN: No significant osseous spinal canal stenosis or neuroforaminal narrowing. SOFT TISSUESNo prevertebral soft tissue swelling. Left thyroid lobe nodule measuring 0.6 cm (4/198), which does not necessitate imaging follow-up. Incidentally noted small focus of nuchal ligament ossification at the C4-C5 level. OTHER: Partially imaged lung apices with emphysematous changes. Mild calcific atherosclerosis of the aortic arch. 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 Procedure Note Carlos Pacheco MD - 04/10/2023 EXAM: CT HEAD WO CONTRAST, CT CERVICAL SPINE WO CONTRAST, DATE/TIME OF EXAM: 04/10/2023 5:02 PM, LOCATION: [facility] HISTORY: W19.XXXA: Fall, initial encounter ADDITIONAL CLINICAL INFORMATION: Ordering Provider Reason For Exam: fall, lac to forehead (accession [id number]), fall (accession [id number]) EXAMINATION: CT scan of the head and cervical spine without intravenous contrast TECHNIQUE: CT of the head and cervical spine was performed without intravenous contrast according to standard protocol. CT dose reduction technique was used, including Automated Exposure Control. COMPARISON: No prior similar studies are available for comparison. FINDINGS: HEAD: Streak/beam hardening artifact from patient's dental amalgam partially limits assessment of the posterior fossa. Within this limitation, the following assessment is made: BRAIN PARENCHYMA: No acute hemorrhage, large vascular territory infarct,or mass effect. White matter is within normal limits for age. Mildgeneralized parenchymal volume loss, which is commensurate for age. VENTRICLES/EXTRA-AXIAL SPACES: No ventriculomegaly or extra-axial collection. Basal cisterns are patent. EXTRACRANIAL STRUCTURES: No acute osseous abnormality. Osseousstructures are demineralized. Large laceration of the kjiwbke-wl-glfnp frontalscalp at the vertex associated with mild soft tissue edema/trace bloodproducts. Paranasal sinuses, nasal cavity, and mastoid air cells are clear.Bilateral lens replacement; otherwise, orbits are unremarkable. Minimal calcific atherosclerosis of the carotid siphons. CERVICAL SPINE: ALIGNMENT: Normal. ATLANTOAXIAL JOINT: The dens is intact, the lateral masses of C1 are normally aligned relative to C2, and the atlantodental interval is normal. BONES: Vertebral body heights are maintained without evidence of acute fracture. Osseous structures are demineralized. DISCS: Multilevel disc space narrowing, which is gulhqxcrxzf-cp-plsyrsks at the C6-C7 level and mild elsewhere. DEGENERATIVE CHANGES: Overall mild multilevel degenerative changes, characterized by varying degrees of facet arthropathy and uncovertebral joint hypertrophy. Incidentally noted osseous fusion of the bilateralC2-C3 facets and partial fusion of the C2-C3 spinous processes. SPINAL CANAL/NEUROFORAMEN: No significant osseous spinal canal stenosisor neuroforaminal narrowing. SOFT TISSUESNo prevertebral soft tissue swelling. Left thyroid lobenodule measuring 0.6 cm (4/198), which does not necessitate imaging follow-up. Incidentally noted small focus of nuchal ligament ossification at theC4-C5 level. OTHER: Partially imaged lung apices with emphysematous changes. Mild calcific atherosclerosis of the aortic arch. 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 IMPRESSION: 1.No acute intracranial abnormality. 2.No acute fracture or traumatic malalignment of the cervical spine. Report dictated by Art Hung MD (compliance vice president). I, Carlos Pacheco MD, PhD have personally reviewed and interpreted this examination/study. > Interpreting Provider: Carlos Pacheco MD, PhD on 04/10/2023 5:55 PM Mckinley Bowman MD CT ORDERABLES * CT HEAD WO CONTRAST (04/10/2023 4:58 PM CDT) Anatomical Region Laterality Modality Head Computed Tomogra phy 04/10/2023 5:08 PM CDT Impressions 04/10/2023 5:55 PM CDT IMPRESSION: 1.No acute intracranial abnormality. 2.No acute fracture or traumatic malalignment of the cervical spine. Report dictated by Art Hung MD (compliance vice president). I, Carlos Pacheco MD, PhD have personally reviewed and interpreted this examination/study. > Interpreting Provider: Carlos Pacheco MD, PhD on 04/10/2023 5:55 PM Narrative 04/10/2023 5:55 PM CDT EXAM: CT HEAD WO CONTRAST, CT CERVICAL SPINE WO CONTRAST, DATE/TIME OF EXAM: 04/10/2023 5:02 PM, LOCATION: [facility] HISTORY: W19.XXXA: Fall, initial encounter ADDITIONAL CLINICAL INFORMATION: Ordering Provider Reason For Exam: fall, lac to forehead (accession [id number]), fall (accession [id number]) EXAMINATION: CT scan of the head and cervical spine without intravenous contrast TECHNIQUE: CT of the head and cervical spine was performed without intravenous contrast according to standard protocol. CT dose reduction technique was used, including Automated Exposure Control. COMPARISON: No prior similar studies are available for comparison. FINDINGS: HEAD: Streak/beam hardening artifact from patient's dental amalgam partially limits assessment of the posterior fossa. Within this limitation, the following assessment is made: BRAIN PARENCHYMA: No acute hemorrhage, large vascular territory infarct, or mass effect. White matter is within normal limits for age. Mild generalized parenchymal volume loss, which is commensurate for age. VENTRICLES/EXTRA-AXIAL SPACES: No ventriculomegaly or extra-axial collection. Basal cisterns are patent. EXTRACRANIAL STRUCTURES: No acute osseous abnormality. Osseous structures are demineralized. Large laceration of the tojoach-xm-qkkzh frontal scalp at the vertex associated with mild soft tissue edema/trace blood products. Paranasal sinuses, nasal cavity, and mastoid air cells are clear. Bilateral lens replacement; otherwise, orbits are unremarkable. Minimal calcific atherosclerosis of the carotid siphons. CERVICAL SPINE: ALIGNMENT: Normal. ATLANTOAXIAL JOINT: The dens is intact, the lateral masses of C1 are normally aligned relative to C2, and the atlantodental interval is normal. BONES: Vertebral body heights are maintained without evidence of acute fracture. Osseous structures are demineralized. DISCS: Multilevel disc space narrowing, which is notably cbnz-yg-jatxoxon at the C6-C7 level and mild elsewhere. DEGENERATIVE CHANGES: Overall mild multilevel degenerative changes, characterized by varying degrees of facet arthropathy and uncovertebral joint hypertrophy. Incidentally noted osseous fusion of the bilateral C2-C3 facets and partial fusion of the C2-C3 spinous processes. SPINAL CANAL/NEUROFORAMEN: No significant osseous spinal canal stenosis or neuroforaminal narrowing. SOFT TISSUESNo prevertebral soft tissue swelling. Left thyroid lobe nodule measuring 0.6 cm (4/198), which does not necessitate imaging follow-up. Incidentally noted small focus of nuchal ligament ossification at the C4-C5 level. OTHER: Partially imaged lung apices with emphysematous changes. Mild calcific atherosclerosis of the aortic arch. 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 Procedure Note Carlos Pacheco MD - 04/10/2023 EXAM: CT HEAD WO CONTRAST, CT CERVICAL SPINE WO CONTRAST, DATE/TIME OF EXAM: 04/10/2023 5:02 PM, LOCATION: [facility] HISTORY: W19.XXXA: Fall, initial encounter ADDITIONAL CLINICAL INFORMATION: Ordering Provider Reason For Exam: fall, lac to forehead (accession [id number]), fall (accession [id number]) EXAMINATION: CT scan of the head and cervical spine without intravenous contrast TECHNIQUE: CT of the head and cervical spine was performed without intravenous contrast according to standard protocol. CT dose reduction technique was used, including Automated Exposure Control. COMPARISON: No prior similar studies are available for comparison. FINDINGS: HEAD: Streak/beam hardening artifact from patient's dental amalgam partially limits assessment of the posterior fossa. Within this limitation, the following assessment is made: BRAIN PARENCHYMA: No acute hemorrhage, large vascular territory infarct,or mass effect. White matter is within normal limits for age. Mildgeneralized parenchymal volume loss, which is commensurate for age. VENTRICLES/EXTRA-AXIAL SPACES: No ventriculomegaly or extra-axial collection. Basal cisterns are patent. EXTRACRANIAL STRUCTURES: No acute osseous abnormality. Osseousstructures are demineralized. Large laceration of the pvmaiiv-ui-rqeax frontalscalp at the vertex associated with mild soft tissue edema/trace bloodproducts. Paranasal sinuses, nasal cavity, and mastoid air cells are clear.Bilateral lens replacement; otherwise, orbits are unremarkable. Minimal calcific atherosclerosis of the carotid siphons. CERVICAL SPINE: ALIGNMENT: Normal. ATLANTOAXIAL JOINT: The dens is intact, the lateral masses of C1 are normally aligned relative to C2, and the atlantodental interval is normal. BONES: Vertebral body heights are maintained without evidence of acute fracture. Osseous structures are demineralized. DISCS: Multilevel disc space narrowing, which is kwklnrsvuwk-io-tsfgpcei at the C6-C7 level and mild elsewhere. DEGENERATIVE CHANGES: Overall mild multilevel degenerative changes, characterized by varying degrees of facet arthropathy and uncovertebral joint hypertrophy. Incidentally noted osseous fusion of the bilateralC2-C3 facets and partial fusion of the C2-C3 spinous processes. SPINAL CANAL/NEUROFORAMEN: No significant osseous spinal canal stenosisor neuroforaminal narrowing. SOFT TISSUESNo prevertebral soft tissue swelling. Left thyroid lobenodule measuring 0.6 cm (4/198), which does not necessitate imaging follow-up. Incidentally noted small focus of nuchal ligament ossification at theC4-C5 level. OTHER: Partially imaged lung apices with emphysematous changes. Mild calcific atherosclerosis of the aortic arch. 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 IMPRESSION: 1.No acute intracranial abnormality. 2.No acute fracture or traumatic malalignment of the cervical spine. Report dictated by Art Hung MD (compliance vice president). I, Carlos Pacheco MD, PhD have personally reviewed and interpreted this examination/study. > Interpreting Provider: Carlos Pacheco MD, PhD on 04/10/2023 5:55 PM Mckinley Bowman MD CT ORDERABLES * XR TIBIA FIBULA RIGHT 2VW (04/10/2023 1:40 PM CDT) Anatomical Region Laterality Modality Lower Extremity Radiographic Kayla ging 04/10/2023 1:39 PM CDT Impressions 04/10/2023 2:38 PM CDT IMPRESSION: No acute fracture or dislocation identified. Mild osteoarthritis of the medial compartment of the knee. Report dictated by Bello Owens MD (compliance vice president). Leela Jaquez MD have personally reviewed and interpreted this examination/study. > Interpreting Provider: Leela Mohr MD on 04/10/2023 2:38 PM Narrative 04/10/2023 2:38 PM CDT PROCEDURE: XR TIBIA FIBULA RIGHT 2VW, XR KNEE RIGHT 3VW, DATE/TIME OF EXAM: 04/10/2023 1:40 PM, LOCATION [facility] INDICATION: W19.XXXA: Fall, initial encounter ADDITIONAL CLINICAL INFORMATION: Ordering Provider Reason For Exam: fall right leg pain (accession [id number]), fall, right knee pain (accession [id number]) COMPARISON: None. FINDINGS: Right knee: The osseous structures are intact and well aligned without acute fracture or dislocation. There is mild narrowing of the medial compartment; minimal medial compartment osteophytes. Small enthesophyte is present at the superior patella. No joint effusion is seen. Bone density and texture are normal. Right tibia/fibula: The tibia and fibula are intact without evidence of acute fracture. Bone density and texture are normal. No soft tissue swelling is present. Procedure Note Leela Mohr MD - 04/10/2023 PROCEDURE: XR TIBIA FIBULA RIGHT 2VW, XR KNEE RIGHT 3VW, DATE/TIME OF EXAM: 04/10/2023 1:40 PM, LOCATION [facility] INDICATION: W19.XXXA: Fall, initial encounter ADDITIONAL CLINICAL INFORMATION: Ordering Provider Reason For Exam: fall right leg pain (accession [id number]), fall, right knee pain (accession [id number]) COMPARISON: None. FINDINGS: Right knee: The osseous structures are intact and well aligned without acutefracture or dislocation. There is mild narrowing of the medial compartment;minimal medial compartment osteophytes. Small enthesophyte is present at the superior patella. No joint effusion is seen. Bone density and textureare normal. Right tibia/fibula: The tibia and fibula are intact without evidence of acute fracture. Bone density and texture are normal. No soft tissue swelling is present. IMPRESSION: No acute fracture or dislocation identified. Mild osteoarthritis of the medial compartment of the knee. Report dictated by Bello Owens MD (compliance vice president). Leela Jaquez MD have personally reviewed and interpreted this examination/study. > Interpreting Provider: Leela Mohr MD on 04/10/2023 2:38 PM Mckinley Bowman MD DIAGNOSTIC IMAGING O RDERABLES * XR KNEE RIGHT 3VW (04/10/2023 1:39 PM CDT) Anatomical Region Laterality Modality Lower Extremity Radiographic Kayla ging 04/10/2023 1:39 PM CDT Impressions 04/10/2023 2:38 PM CDT IMPRESSION: No acute fracture or dislocation identified. Mild osteoarthritis of the medial compartment of the knee. Report dictated by Bello Owens MD (compliance vice president). eLela Jaquez MD have personally reviewed and interpreted this examination/study. > Interpreting Provider: Leela Mohr MD on 04/10/2023 2:38 PM Narrative 04/10/2023 2:38 PM CDT PROCEDURE: XR TIBIA FIBULA RIGHT 2VW, XR KNEE RIGHT 3VW, DATE/TIME OF EXAM: 04/10/2023 1:40 PM, LOCATION [facility] INDICATION: W19.XXXA: Fall, initial encounter ADDITIONAL CLINICAL INFORMATION: Ordering Provider Reason For Exam: fall right leg pain (accession [id number]), fall, right knee pain (accession [id number]) COMPARISON: None. FINDINGS: Right knee: The osseous structures are intact and well aligned without acute fracture or dislocation. There is mild narrowing of the medial compartment; minimal medial compartment osteophytes. Small enthesophyte is present at the superior patella. No joint effusion is seen. Bone density and texture are normal. Right tibia/fibula: The tibia and fibula are intact without evidence of acute fracture. Bone density and texture are normal. No soft tissue swelling is present. Procedure Note Leela Mohr MD - 04/10/2023 PROCEDURE: XR TIBIA FIBULA RIGHT 2VW, XR KNEE RIGHT 3VW, DATE/TIME OF EXAM: 04/10/2023 1:40 PM, LOCATION [facility] INDICATION: W19.XXXA: Fall, initial encounter ADDITIONAL CLINICAL INFORMATION: Ordering Provider Reason For Exam: fall right leg pain (accession [id number]), fall, right knee pain (accession [id number]) COMPARISON: None. FINDINGS: Right knee: The osseous structures are intact and well aligned without acutefracture or dislocation. There is mild narrowing of the medial compartment;minimal medial compartment osteophytes. Small enthesophyte is present at the superior patella. No joint effusion is seen. Bone density and textureare normal. Right tibia/fibula: The tibia and fibula are intact without evidence of acute fracture. Bone density and texture are normal. No soft tissue swelling is present. IMPRESSION: No acute fracture or dislocation identified. Mild osteoarthritis of the medial compartment of the knee. Report dictated by Bello Owens MD (compliance vice president). I, Leela Mohr MD have personally reviewed and interpreted this examination/study. > Interpreting Provider: Leela Mohr MD on 04/10/2023 2:38 PM Mckinley Bowman MD DIAGNOSTIC IMAGING O [facility]
--- OUTSIDE RECORDS SUMMARY | 2024-10-29 00:32 | XMS_ITS | Data Portability ---
Author Organization [facility], Main Office Address [address] [place] [address] Care Team Providers Care Oral And Maxillofacial Pathologist Name Role Phone SHAN WALTERS Primary Care Provider SHAN WALTERS Referring Provider Assessment Encounter Date Assessment Date Assessment LastModified by Organization Details LastModified Time 03/14/2023 03/14/2023 Continue current therapy weight reduction has been discussed continue current therapy diagnosis assessment plan have been discussed in the management of those diagnosis see me in 6 months [email or web address] Not available 03/14/2023 11:20:48 04/16/2023 04/16/2023 We were unsuccessful to get the shasha out of her head and I had to refer her back to Trauma surgery see me back in a couple of weeks [email or web address] Not available 09/06/2023 13:46:41 04/19/2023 04/19/2023 Follow-up in 2 weeks will continue current therapy [email or web address] Not available 07/08/2023 18:49:57 05/03/2023 05/03/2023 Head wound improving hematoma in right leg by ultrasound continue to monitor this should all heel up see me in a regular schedule [email or web address] Not available 05/03/2023 22:42:01 09/17/2023 09/17/2023 Will try gabapentin 100 mg q.h.s. for 1 week then titrate to 200 mg q.h.s. for a week if she tolerates it and in the 300 mg nightly thereafter other blood work will be ordered for biochemical management of disease processes and medications and follow-up with me in 4 months but she will let me know in a few weeks by phone how the gabapentin is working. [email or web address] Not available 09/17/2023 23:18:39 Plan of Treatment Reminders Order Date Submit Date Provider Last Modified By Organization Details Last Modified Time Details Appointments None recorded . Lab CBC w/ auto diff 024 09/17/[address] (Lab), [address] [place], [address], 4 13:10:59 lipid panel, serum 024 09/17/[address] (Lab), [address] [place], [address], 4 13:10:59 CMP, serum or plasma 024 09/17/[address] (Lab), [address] [place], [address], 4 13:10:59 T3, free, serum or plasma 024 09/17/[address] (Lab), [address] [place], [address], 4 13:10:59 T4, free, serum 024 09/17/[address] (Lab), [address] [place], [address], 4 13:10:59 TSH, serum or plasma 024 09/17/[address] (Lab), [address] [place], [address], 4 13:10:59 CBC w/ auto diff 023 03/14/20 23 [facility] (Lab), [address] [place], [address], 3 12:21:58 lipid panel, serum 023 03/14/20 23 [facility] (Lab), [address] [place], [address], 12:35:55 CMP, serum or plasma 023 03/14/20 23 [facility] (Lab), [address] [place], [address], 12:36:08 Referral None recorded . Procedures None recorded . Surgeries None recorded . Imaging None recorded . Medication Orders None recorded . Patient TargetsNo targets recorded. Patient Instructions Encounter Date Encounter Id Patient Instructions Last Modified By Organization Details Last Modified Time 04/19/2023 [id number] dementia rating scale-2* [email or web address] Not available 07/08/2023 18:50:37 multi-dimensiona l health assessment questionnaire* [email or web address] Not available 07/08/2023 18:50:36 care plan* [email or web address] Not available 07/08 18:50:36 advance directiv es: care instructions [email or web address] Not available 07/08/2023 18:50:37 advance care planning: care instructions [email or web address] Not available 07/08/2023 18:50:36 [place] Advance Directives [email or web address] Not available 07/08/2023 18:50:36 Personalized [facility] lt Plan and Screening Recommendations Advance Directives - Do you have one? Advance Directives - Do we have your advance directive on file in your health record? Primary Prevention/Interven tion (prevents or decreases the chance of common diseases from occurring) Smoking Risk: Alcohol Misuse Screening: Weight: Physical activity: Nutrition: Fall Risk (screened today): Vaccines Pneumococcal: Influenza: Chronic Disease Risks Stroke: I have no recommendations Active diagnosis, Continue current treatment plan Heart Attack: I have no recommendations Act anny diagnosis, Continue current treatment plan Clogging of the Arteries: I have no recommendations Act anny diagnosis, Continue current treatment plan Diabetes: Active diagnosis, Continue current treatment plan Secondary Prevention/Interven tion (detects treatable diseases before they may cause symptoms, disability, or ) Breast Cancer Screening with mammogram: Cervical/Uterine/Ov neto Cancer Screening: Osteoporosis Screening: Date Screening Last Performed: Colon Cancer Screening: Date Screening Last Performed: Eye Disease Screening: Dementia Risk: Depression Screening: Active diagnosis, Continue current treatment plan [email or web address] Not available 04/19/2023 12:06:43 Reason for Referral None Reported. Results Created Date Observation Date Name Description Value Unit Range Abnormal Flag Note LastModifiedBy Organization Detail LastModifiedTime 03/14/2003/14/2023 CBC/C OMPLE TE BLD COUNT W/DIF F white blood cells 5.9 x10'3 /uL 4.2-10 .8 Not Available [facility] (Lab) [address] [place], [address], 03/14/2023 12:21:58 03/14/20 23 03/14/2023 CBC/C OMPLE TE BLD COUNT W/DIF F red blood cells 4.15 x10'6 /uL 3.80-5 .20 Not Available [facility] (Lab) [address] [place], [address], 03/14/2023 12:21:58 03/14/20 23 03/14/2023 CBC/C OMPLE TE BLD COUNT W/DIF F hemoglobin 13.1 g/dL 12.0-1 5.6 Not Available [facility] (Lab) [address] [place], [address], 03/14/2023 12:21:58 03/14/20 23 03/14/2023 CBC/C OMPLE TE BLD COUNT W/DIF F hematocrit 38.4 % 35.7-4 5.7 Not Available [facility] (Lab) [address] [place], [address], 03/14/2023 12:21:58 03/14/20 23 03/14/2023 CBC/C OMPLE TE BLD COUNT W/DIF F mean red cell volume 92.5 fL 82.0-9 9.0 Not Available [facility] (Lab) [address] [place], [address], 03/14/2023 12:21:58 03/14/20 23 03/14/2023 CBC/C OMPLE TE BLD COUNT W/DIF F mean red cell hemoglobin 31.6 pg 27.0-3 3.0 Not Available [facility] (Lab) [address] [place], [address], 03/14/2023 12:21:58 03/14/20 23 03/14/2023 CBC/C OMPLE TE BLD COUNT W/DIF F mean RBC HGB concentratio n 34.1 g/dL 31.0-3 6.0 Not Available [facility] (Lab) [address] [place], [address], 03/14/2023 12:21:58 03/14/20 23 03/14/2023 CBC/C OMPLE TE BLD COUNT W/DIF F red cell distribution width 12.2 % 11.8-1 5.5 Not Available [facility] (Lab) [address] [place], [address], 03/14/2023 12:21:58 03/14/20 23 03/14/2023 CBC/C OMPLE TE BLD COUNT W/DIF F platelets 229 x10'3 /uL 150-40 0 Not Available [facility] (Lab) [address] [place], [address], 03/14/2023 12:21:58 03/14/20 23 03/14/2023 CBC/C OMPLE TE BLD COUNT W/DIF F mean platelet volume 10.6 fL 9.0-12 .4 Not Available [facility] (Lab) [address] [place], [address], 03/14/2023 12:21:58 03/14/20 23 03/14/2023 CBC/C OMPLE TE BLD COUNT W/DIF F neutrophils 55.4 % 39.0-7 2.0 Not Available [facility] (Lab) [address] [place], [address], 03/14/2023 12:21:58 03/14/20 23 03/14/2023 CBC/C OMPLE TE BLD COUNT W/DIF F lymphocytes 34.1 % 16.0-4 7.0 Not Available [facility] (Lab) [address] [place], [address], 03/14/2023 12:21:58 03/14/20 23 03/14/2023 CBC/C OMPLE TE BLD COUNT W/DIF F monocytes 8.8 % 5.0-12 .0 Not Available [facility] (Lab) [address] [place], [address], 03/14/2023 12:21:58 03/14/20 23 03/14/2023 CBC/C OMPLE TE BLD COUNT W/DIF F eosinophils 0.7 % 1.0-7. 0 low Not Available [facility] (Lab) [address] [place], [address], 03/14/2023 12:21:58 03/14/20 23 03/14/2023 CBC/C OMPLE TE BLD COUNT W/DIF F basophils 0.8 % 0.0-2. 0 Not Available [facility] (Lab) [address] [place], [address], 03/14/2023 12:21:58 03/14/20 23 03/14/2023 CBC/C OMPLE TE BLD COUNT W/DIF F immature granulocytes 0.2 % 0.00-0 .50 Not Available [facility] (Lab) [address] [place], [address], 03/14/2023 12:21:58 03/14/20 23 03/14/2023 CBC/C OMPLE TE BLD COUNT W/DIF F neutrophils, absolute count 3.28 x10'3 /uL 1.5-8. 0 Not Available [facility] (Lab) [address] [place], [address], 03/14/2023 12:21:58 03/14/20 23 03/14/2023 CBC/C OMPLE TE BLD COUNT W/DIF F lymphocytes, absolute count 2.02 x10'3 /uL 1.07-3 .43 Not Available [facility] (Lab) [address] [place], [address], 03/14/2023 12:21:58 03/14/20 23 03/14/2023 CBC/C OMPLE TE BLD COUNT W/DIF F monocytes, absolute count 0.52 x10'3 /uL 0.29-0 .99 Not Available [facility] (Lab) [address] [place], [address], 03/14/2023 12:21:58 03/14/20 23 03/14/2023 CBC/C OMPLE TE BLD COUNT W/DIF F eosinophils, absolute count 0.04 x10'3 /uL 0.02-0 .53 Not Available [facility] (Lab) [address] [place], [address], 03/14/2023 12:21:58 03/14/20 23 03/14/2023 CBC/C OMPLE TE BLD COUNT W/DIF F basophils, absolute count 0.05 x10'3 /uL 0.01-0 .08 Not Available [facility] (Lab) [address] [place], [address], 03/14/2023 12:21:58 03/14/20 23 03/14/2023 CBC/C OMPLE TE BLD COUNT W/DIF F immature granulocytes ,absolute 0.01 x10'3 /uL 0.00-0 .05 Not Available [facility] (Lab) [address] [place], [address], 03/14/2023 12:21:58 03/14/20 23 03/14/2023 CBC/C OMPLE TE BLD COUNT W/DIF F nucleated red blood cells 0.0 % -0 Not Available [facility] (Lab) [address] [place], [address], 03/14/2023 12:21:58 03/14/20 23 03/14/2023 CBC/C OMPLE TE BLD COUNT W/DIF F NRBC# 0.00 x10'3 /uL Not Available [facility] (Lab) [address] [place], [address], 03/14/2023 12:21:58 03/14/20 23 03/14/2023 LIPID PANEL cholesterol 153 mg/dL 140-19 9 NIH NERIS NSUS RECOM MENDA TION FOR GUERO STERO L: ADULT CHILD LOW RISK: <200 <170 BORDE RLINE : <200- 239 ----- HIGH RISK: >240 >200 Not Available [facility] (Lab) [address] [place], [address], 03/14/2023 12:35:55 03/14/20 23 03/14/2023 LIPID PANEL triglyceride s 147 mg/dL 0-150 NIH NERIS NSUS REPOR T RECOM MENDA TION FOR TRIGL YCERI MICHAEL: ADULT CHILD LOW RISK: <150 ----- BODER LINE: 150-1 99 ----- HIGH RISK: >200 ----- Not Available [facility] (Lab) [address] [place], [address], 03/14/2023 12:35:55 03/14/20 23 03/14/2023 LIPID PANEL HDL cholesterol 40 mg/dL 40- Not Available [facility] (Lab) [address] [place], [address], 03/14/2023 12:35:55 03/14/20 23 03/14/2023 LIPID PANEL LDL cholesterol, calculated 84 mg/dL 0-130 NIH NERIS NSUS REPOR T RECOM MENDA TIONS FOR LDL: ADULT CHILD LOW RISK <130 <110 (OPTI MAL LDL) <100 ----- BORDE RLINE : 130-1 59 ----- HIGH RISK: >160 >130 A TRIGL YCERI DE RESUL T >400 INVAL IDATE S THE CALCU LATIO N FOR LDL FRACT IONAT ION - THE LDL RESUL T WILL NOT BE REPOR LESLIE. Not Available [facility] (Lab) [address] [place], [address], 03/14/2023 12:35:55 03/14/20 23 03/14/2023 COMPR EHENS ANNY METAB OLIC PANEL sodium 141 mmol/ L 137-14 5 Not Available [facility] (Lab) [address] [place], [address], 03/14/2023 12:36:08 03/14/20 23 03/14/2023 COMPR EHENS ANNY METAB OLIC PANEL potassium 4.1 mmol/ L 3.5-5. 1 Not Available [facility] (Lab) [address] [place], [address], 03/14/2023 12:36:08 03/14/20 23 03/14/2023 COMPR EHENS ANNY METAB OLIC PANEL chloride 106 mmol/ L 98-107 Not Available [facility] (Lab) [address] [place], [address], 03/14/2023 12:36:08 03/14/20 23 03/14/2023 COMPR EHENS ANNY METAB OLIC PANEL carbon dioxide 24 mmol/ L 22-30 Not Available [facility] (Lab) [address] [place], [address], 03/14/2023 12:36:08 03/14/20 23 03/14/2023 COMPR EHENS ANNY METAB OLIC PANEL anion gap 15.1 mmol/ L 14-22 Not Available [facility] (Lab) [address] [place], [address], 03/14/2023 12:36:08 03/14/20 23 03/14/2023 COMPR EHENS ANNY METAB OLIC PANEL glucose 98 mg/dL 70-99 Not Available [facility] (Lab) [address] [place], [address], 03/14/2023 12:36:08 03/14/20 23 03/14/2023 COMPR EHENS ANNY METAB OLIC PANEL BUN 18 mg/dL 8-19 Not Available [facility] (Lab) [address] [place], [address], 03/14/2023 12:36:08 03/14/20 23 03/14/2023 COMPR EHENS ANNY METAB OLIC PANEL creatinine 0.57 mg/dL 0.66-1 .25 low Not Available [facility] (Lab) [address] [place], [address], 03/14/2023 12:36:08 03/14/20 23 03/14/2023 COMPR EHENS ANNY METAB OLIC PANEL GFR >60 Refer ence Range : Needles ge GFR Healt hy Adult : >60 mL/mi n/1.7 3 m2 Chron ic Kidne y Disea se: 15-60 mL/mi n/1.7 3 m2 Kidne y Failu re: <15/m L/min /1.73 m2 www.n iddk. nih.g ov The MDRD study equat ion has not been valid ated in child tae <18 years of age; pregn ant women ; the elder ly >85 years of age; or in some racia l or ethni c subgr oups, such as Hiswv nics. Outsi de the valid ated tracey eters , estim ated GFR is less accur ate, requi ring clini danielle judgm ent on a case- by-ca se basis . Clini danielle inter preta tion for other races and ages must be made by the clini loc. The MDRD study equat ion has not been valid ated for the evalu ation of serum creat inine relat ed to nutri shane l statu s or medic ation usage . For perso ns <18 years of age, a pedia tric GFR calcu lator is avail able on the [facility] websi te: https ://ww w.kid didi.prisca cesar/pr ofess ional s/kdo qi/gf r_cal culat or Not Available [facility] (Lab) [address] [place], [address], 03/14/2023 12:36:08 03/14/20 23 03/14/2023 COMPR EHENS ANNY METAB OLIC PANEL alkaline phosphatase 77 U/L 38-126 Not Available [facility] (Lab) [address] [place], [address], 03/14/2023 12:36:08 03/14/20 23 03/14/2023 COMPR EHENS ANNY METAB OLIC PANEL alanine aminotransfe rase 29 U/L 0-35 Not Available [facility] (Lab) [address] [place], [address], 03/14/2023 12:36:08 03/14/20 23 03/14/2023 COMPR EHENS ANNY METAB OLIC PANEL aspartate aminotransfe rase 26 U/L 15-37 Not Available [facility] (Lab) [address] [place], [address], 03/14/2023 12:36:08 03/14/20 23 03/14/2023 COMPR EHENS ANNY METAB OLIC PANEL bilirubin, total 0.30 mg/dL 0.20-1 .30 Not Available [facility] (Lab) [address] [place], [address], 03/14/2023 12:36:08 03/14/20 23 03/14/2023 COMPR EHENS ANNY METAB OLIC PANEL calcium 9.1 mg/dL 8.4-10 .2 Not Available [facility] (Lab) [address] [place], [address], 03/14/2023 12:36:08 03/14/20 23 03/14/2023 COMPR EHENS ANNY METAB OLIC PANEL total protein 6.7 g/dL 6.3-8. 2 Not Available [facility] (Lab) [address] [place], [address], 03/14/2023 12:36:08 03/14/20 23 03/14/2023 COMPR EHENS ANNY METAB OLIC PANEL albumin 4.0 g/dL 3.0-4. 4 Not Available [facility] (Lab) [address] [place], [address], 03/14/2023 12:36:08 03/14/20 23 03/14/2023 COMPR EHENS ANNY METAB OLIC PANEL globulin 2.7 g/dL 2.6-4. 2 Not Available [facility] (Lab) [address] [place], [address], 03/14/2023 12:36:08 03/14/20 23 03/14/2023 COMPR EHENS ANNY METAB OLIC PANEL A/G ratio 1.5 ratio 1.0-2. 0 Not Available [facility] (Lab) [address] [place], [address], 03/14/2023 12:36:08 09/17/19 24 09/17/2023 CBC/C OMPLE TE BLD COUNT W/DIF F white blood cells 6.4 x10'3 /uL 4.2-10 .8 Not Available [facility] (Lab) [address] [place], [address], 09/17/2023 12:45:52 09/17/19 24 09/17/2023 CBC/C OMPLE TE BLD COUNT W/DIF F red blood cells 4.60 x10'6 /uL 3.80-5 .20 Not Available [facility] (Lab) [address] [place], [address], 09/17/2023 12:45:52 09/17/19 24 09/17/2023 CBC/C OMPLE TE BLD COUNT W/DIF F hemoglobin 14.4 g/dL 12.0-1 5.6 Not Available [facility] (Lab) [address] [place], [address], 09/17/2023 12:45:52 09/17/19 24 09/17/2023 CBC/C OMPLE TE BLD COUNT W/DIF F hematocrit 42.4 % 35.7-4 5.7 Not Available [facility] (Lab) [address] [place], [address], 09/17/2023 12:45:52 09/17/19 24 09/17/2023 CBC/C OMPLE TE BLD COUNT W/DIF F mean red cell volume 92.2 fL 82.0-9 9.0 Not Available [facility] (Lab) [address] [place], [address], 09/17/2023 12:45:52 09/17/19 24 09/17/2023 CBC/C OMPLE TE BLD COUNT W/DIF F mean red cell hemoglobin 31.3 pg 27.0-3 3.0 Not Available [facility] (Lab) [address] [place], [address], 09/17/2023 12:45:52 09/17/19 24 09/17/2023 CBC/C OMPLE TE BLD COUNT W/DIF F mean RBC HGB concentratio n 34.0 g/dL 31.0-3 6.0 Not Available [facility] (Lab) [address] [place], [address], 09/17/2023 12:45:52 09/17/19 24 09/17/2023 CBC/C OMPLE TE BLD COUNT W/DIF F red cell distribution width 12.4 % 11.8-1 5.5 Not Available [facility] (Lab) [address] [place], [address], 09/17/2023 12:45:52 09/17/19 24 09/17/2023 CBC/C OMPLE TE BLD COUNT W/DIF F platelets 253 x10'3 /uL 150-40 0 Not Available [facility] (Lab) [address] [place], [address], 09/17/2023 12:45:52 09/17/19 24 09/17/2023 CBC/C OMPLE TE BLD COUNT W/DIF F mean platelet volume 10.5 fL 9.0-12 .4 Not Available [facility] (Lab) [address] [place], [address], 09/17/2023 12:45:52 09/17/19 24 09/17/2023 CBC/C OMPLE TE BLD COUNT W/DIF F neutrophils 55.5 % 39.0-7 2.0 Not Available [facility] (Lab) [address] [place], [address], 09/17/2023 12:45:52 09/17/19 24 09/17/2023 CBC/C OMPLE TE BLD COUNT W/DIF F lymphocytes 33.0 % 16.0-4 7.0 Not Available [facility] (Lab) [address] [place], [address], 09/17/2023 12:45:52 09/17/19 24 09/17/2023 CBC/C OMPLE TE BLD COUNT W/DIF F monocytes 9.2 % 5.0-12 .0 Not Available [facility] (Lab) [address] [place], [address], 09/17/2023 12:45:52 09/17/19 24 09/17/2023 CBC/C OMPLE TE BLD COUNT W/DIF F eosinophils 1.1 % 1.0-7. 0 Not Available [facility] (Lab) [address] [place], [address], 09/17/2023 12:45:52 09/17/19 24 09/17/2023 CBC/C OMPLE TE BLD COUNT W/DIF F basophils 0.9 % 0.0-2. 0 Not Available [facility] (Lab) [address] [place], [address], 09/17/2023 12:45:52 09/17/19 24 09/17/2023 CBC/C OMPLE TE BLD COUNT W/DIF F immature granulocytes 0.3 % 0.00-0 .50 Not Available [facility] (Lab) [address] [place], [address], 09/17/2023 12:45:52 09/17/19 24 09/17/2023 CBC/C OMPLE TE BLD COUNT W/DIF F neutrophils, absolute count 3.57 x10'3 /uL 1.5-8. 0 Not Available [facility] (Lab) [address] [place], [address], 09/17/2023 12:45:52 09/17/19 24 09/17/2023 CBC/C OMPLE TE BLD COUNT W/DIF F lymphocytes, absolute count 2.12 x10'3 /uL 1.07-3 .43 Not Available [facility] (Lab) [address] [place], [address], 09/17/2023 12:45:52 09/17/19 24 09/17/2023 CBC/C OMPLE TE BLD COUNT W/DIF F monocytes, absolute count 0.59 x10'3 /uL 0.29-0 .99 Not Available [facility] (Lab) [address] [place], [address], 09/17/2023 12:45:52 09/17/19 24 09/17/2023 CBC/C OMPLE TE BLD COUNT W/DIF F eosinophils, absolute count 0.07 x10'3 /uL 0.02-0 .53 Not Available [facility] (Lab) [address] [place], [address], 09/17/2023 12:45:52 09/17/19 24 09/17/2023 CBC/C OMPLE TE BLD COUNT W/DIF F basophils, absolute count 0.06 x10'3 /uL 0.01-0 .08 Not Available [facility] (Lab) [address] [place], [address], 09/17/2023 12:45:52 09/17/19 24 09/17/2023 CBC/C OMPLE TE BLD COUNT W/DIF F immature granulocytes ,absolute 0.02 x10'3 /uL 0.00-0 .05 Not Available [facility] (Lab) [address] [place], [address], 09/17/2023 12:45:52 09/17/19 24 09/17/2023 CBC/C OMPLE TE BLD COUNT W/DIF F nucleated red blood cells 0.0 % -0 Not Available [facility] (Lab) [address] [place], [address], 09/17/2023 12:45:52 09/17/19 24 09/17/2023 CBC/C OMPLE TE BLD COUNT W/DIF F NRBC# 0.00 x10'3 /uL Not Available [facility] (Lab) [address] [place], [address], 09/17/2023 12:45:52 09/17/19 24 09/17/2023 LIPID PANEL cholesterol 195 mg/dL 140-19 9 NIH NERIS NSUS RECOM MENDA TION FOR GUERO STERO L: ADULT CHILD LOW RISK: <200 <170 BORDE RLINE : <200- 239 ----- HIGH RISK: >240 >200 Not Available [facility] (Lab) [address] [place], [address], 09/17/2023 12:51:30 09/17/19 24 09/17/2023 LIPID PANEL triglyceride s 287 mg/dL 0-150 high NIH NERIS NSUS REPOR T RECOM MENDA TION FOR TRIGL YCERI MICHAEL: ADULT CHILD LOW RISK: <150 ----- BODER LINE: 150-1 99 ----- HIGH RISK: >200 ----- Not Available [facility] (Lab) [address] [place], [address], 09/17/2023 12:51:30 09/17/19 24 09/17/2023 LIPID PANEL HDL cholesterol 41 mg/dL 40- Not Available [facility] (Lab) [address] [place], [address], 09/17/2023 12:51:30 09/17/19 24 09/17/2023 LIPID PANEL LDL cholesterol, calculated 97 mg/dL 0-130 NIH NERIS NSUS REPOR T RECOM MENDA TIONS FOR LDL: ADULT CHILD LOW RISK <130 <110 (OPTI MAL LDL) <100 ----- KERRI RLINE : 130-1 59 ----- HIGH RISK: >160 >130 A TRIGL YCERI DE RESUL T >400 INVAL IDATE S THE CALCU LATIO N FOR LDL FRACT IONAT ION - THE LDL RESUL T WILL NOT BE REPOR LESLIE. Not Available [facility] (Lab) [address] [place], [address], 09/17/2023 12:51:30 09/17/19 24 09/17/2023 COMPR EHENS ANNY METAB OLIC PANEL sodium 141 mmol/ L 137-14 5 Not Available [facility] (Lab) [address] [place], [address], 09/17/2023 12:51:35 09/17/19 24 09/17/2023 COMPR EHENS ANNY METAB OLIC PANEL potassium 4.1 mmol/ L 3.5-5. 1 Not Available [facility] (Lab) [address] [place], [address], 09/17/2023 12:51:35 09/17/19 24 09/17/2023 COMPR EHENS ANNY METAB OLIC PANEL chloride 107 mmol/ L 98-107 Not Available [facility] (Lab) [address] [place], [address], 09/17/2023 12:51:35 09/17/19 24 09/17/2023 COMPR EHENS ANNY METAB OLIC PANEL carbon dioxide 26 mmol/ L 22-30 Not Available [facility] (Lab) [address] [place], [address], 09/17/2023 12:51:35 09/17/19 24 09/17/2023 COMPR EHENS ANNY METAB OLIC PANEL anion gap 12.1 mmol/ L 14-22 low Not Available [facility] (Lab) [address] [place], [address], 09/17/2023 12:51:35 09/17/19 24 09/17/2023 COMPR EHENS ANNY METAB OLIC PANEL glucose 110 mg/dL 70-99 high Not Available [facility] (Lab) [address] [place], [address], 09/17/2023 12:51:35 09/17/19 24 09/17/2023 COMPR EHENS ANNY METAB OLIC PANEL BUN 12 mg/dL 8-19 Not Available [facility] (Lab) [address] [place], [address], 09/17/2023 12:51:35 09/17/19 24 09/17/2023 COMPR EHENS ANNY METAB OLIC PANEL creatinine 0.64 mg/dL 0.66-1 .25 low Not Available [facility] (Lab) [address] [place], [address], 09/17/2023 12:51:35 09/17/19 24 09/17/2023 COMPR EHENS ANNY METAB OLIC PANEL GFR >60 Refer ence Range : Needles ge GFR Healt hy Adult : >60 mL/mi n/1.7 3 m2 Chron ic Kidne y Disea se: 15-60 mL/mi n/1.7 3 m2 Kidne y Failu re: <15/m L/min /1.73 m2 [email or web address] The MDRD study equat ion has not been valid ated in child tae <18 years of age; pregn ant women ; the elder ly >85 years of age; or in some racia l or ethni c subgr oups, such as Hispa nics. Outsi de the valid ated tracey eters , estim ated GFR is less accur ate, requi ring clini danielle judgm ent on a case- by-ca se basis . Clini danielle inter preta tion for other races and ages must be made by the clini loc. The MDRD study equat ion has not been valid ated for the evalu ation of serum creat inine relat ed to nutri shane l statu s or medic ation usage . For perso ns <18 years of age, a pedia tric GFR calcu lator is avail able on the [facility] websi te: [email or web address] :[email or web address] rg/pr ofess ional s/kdo qi/gf r_cal culat or Not Available [facility] (Lab) [address] [place], [address], 09/17/2023 12:51:35 09/17/19 24 09/17/2023 COMPR EHENS ANNY METAB OLIC PANEL alkaline phosphatase 77 U/L 38-126 Not Available [facility] (Lab) [address] [place], [address], 09/17/2023 12:51:35 09/17/19 24 09/17/2023 COMPR EHENS ANNY METAB OLIC PANEL alanine aminotransfe rase 26 U/L 0-35 Not Available [facility] (Lab) [address] [place], [address], 09/17/2023 12:51:35 09/17/19 24 09/17/2023 COMPR EHENS ANNY METAB OLIC PANEL aspartate aminotransfe rase 26 U/L 15-37 Not Available [facility] (Lab) [address] [place], [address], 09/17/2023 12:51:35 09/17/19 24 09/17/2023 COMPR EHENS ANNY METAB OLIC PANEL bilirubin, total 0.60 mg/dL 0.20-1 .30 Not Available [facility] (Lab) [address] [place], [address], 09/17/2023 12:51:35 09/17/19 24 09/17/2023 COMPR EHENS ANNY METAB OLIC PANEL calcium 9.9 mg/dL 8.4-10 .2 Not Available [facility] (Lab) [address] [place], [address], 09/17/2023 12:51:35 09/17/19 24 09/17/2023 COMPR EHENS ANNY METAB OLIC PANEL total protein 7.5 g/dL 6.3-8. 2 Not Available [facility] (Lab) [address] [place], [address], 09/17/2023 12:51:35 09/17/19 24 09/17/2023 COMPR EHENS ANNY METAB OLIC PANEL albumin 4.6 g/dL 3.0-4. 4 high Not Available [facility] (Lab) [address] [place], [address], 09/17/2023 12:51:35 09/17/19 24 09/17/2023 COMPR EHENS ANNY METAB OLIC PANEL globulin 2.9 g/dL 2.6-4. 2 Not Available [facility] (Lab) [address] [place], [address], 09/17/2023 12:51:35 09/17/19 24 09/17/2023 COMPR EHENS ANNY METAB OLIC PANEL A/G ratio 1.6 ratio 1.0-2. 0 Not Available [facility] (Lab) [address] [place], [address], 09/17/2023 12:51:35 09/17/19 24 09/17/2023 T3 FREE free T3 3.8 pg/mL 2.77-5 .27 Not Available [facility] (Lab) [address] [place], [address], 09/17/2023 12:54:21 09/17/19 24 09/17/2023 T4 FREE free T4 1.07 NG/dL 0.78-2 .19 Not Available [facility] (Lab) [address] [place], [address], 09/17/2023 12:54:25 09/17/19 24 09/17/2023 TSH thyroid-stim ulating hormone 1.390 uIU/m L 0.465- 4.680 Not Available [facility] (Lab) [address] [place], [address], 09/17/2023 13:02:42 06/25/20 24 06/25/2024 CREAT ININE , I-STA T creatinine 0.7 mg/dL 0.6-1. 3 Not Available [facility] (Lab) [address] [place], [address], 06/26/2024 09:50:05 03/30/20 23 03/30/2023 US, echoc ardio gram No observ ation record ed. [email or web address] [facility] [address], [place], [address], 04/17/2023 10:35:02 03/30/20 23 03/30/2023 US, duple x, abdom inal aorta No observ ation record ed. [email or web address] [facility] [address], [place], [address], 04/17/2023 10:35:59 04/12/20 23 04/12/2023 angelique r monit or No observ ation record ed. [email or web address] [facility] [address], [place], [address], 04/17/2023 14:12:48 04/26/20 23 04/26/2023 US, duple x, venou s, lower extre mity, unila teral No observ ation record ed. [facility] [address] [place], [address], 05/03/2023 10:55:22 09/07/20 23 09/07/2023 MAMMO , scree alba, digit al, bilat eral No observ ation record ed. [facility] [address] [facility], [place], [address], 09/11/2023 15:51:38 06/25/20 24 06/25/2024 CT, abdom en + pelvi s, w/ contr ast [facility] [address] [place] [address] [phone] Patien t Name: VALENTINA GRIGGS Access ion #: [id number] Sex: F : 1949 6 Dictat ed By: Abraham Tristan Attend ing Physic eamon: CASSIE WALTERS [facility] Physic eamon: CASSIE WALTERS Exam Date: 2023 11:56 AM Exam Name: CT ABDOME N PELVIS W Admitt ing Diagno sis(es ): Exam: CT ABDOME N PELVIS W Histor y: abd pain COMPAR BEATRICE: None Techni que: Multid etecto r spiral CT of the abdome n and pelvis was perfor med from lung bases to pubic symphy sis. Intrav enous contra st was admini stered during this examin ation. Portal venous imagin g was obtain ed. Axial, rivera l and sagitt al multip lanar reform ats were perfor med by the techno logist on a [employer] [facility]. Radiat ion Dose : 1. Abdome n/Pelv is: CTDIvo l 16.9 mGy, DLP 815.9 mGy*cm . Findin gs: Lung Bases: Small to modera te left fat contai alba diaphr agmati c hernia . Liver: Hepato megaly . Hepati c steato sis. Gallbl adder and Biliar y Tree: Gallbl adder is surgic ally absent . Spleen : Unrema rkable Pancre as: The pancre as is normal in appear ance withou t focal lesion s or abnorm al enhanc ement. Adrena l Glands : Unrema rkable Kidney s: No hydron ephros is. Page 1 [facility] [address] [facility] [address] [facility], [place] [address] Patien t Name: VALENTINA GRIGGS Access ion #: [id number] Sex: F : 1949 7 Dictat ed By: Abraham Tristan Attend ing Physic eamon: BERNICE BAKER [facility] Physic eamon: CASSIE WALTERS Exam Date: 2023 11:56 AM Exam Name: CT ABDOME N PELVIS W Admitt ing Diagno sis(es ): Bladde r: Unrema rkable Bowel: The stomac h is grossl y normal in appear ance. Modera te volume coloni c stool. Normal append ix is visual ized in the right lower quadra nt withou t findin gs of append icitis . Ascite s: Absent Lympha denopa thy: No mesent alma, retrop eriton eal or peripo rtal lympha denopa thy. Abdomi nal Wall and Mesent martha: Unrema rkable . Vascul ature: The visual ized abdomi nal aorta is normal in size and calibe r. Abdomi nal and pelvic vessel s demons trate normal enhanc ement. Pelvic Organs : Unrema rkable Muscul oskele alcon: No aggres sive focal bony lesion s, acute fractu res or disloc ation. IMPRES ROYCE: Hepato megaly and hepati c steato sis. Modera te volume coloni c stool. Radiat ion optimi zation : [facility] use at least one of these dose optimi zation techni ques: automa leslie exposu re contro l mA and/or kV adjust ment per patien t size (inclu michael target ed exams where dose is matche d to clinic al indica tion) or iterat anny recons tructi on. Electr onical ly Signed by: Abraham Tristan at 2023 13:30: 18 PM Page 3 [email or web address] [facility] (Imaging) [address] [place], [address], 06/25/2024 14:58:25 Result Notes None recorded. Problems Name Problem SNOMED Code Status Onset Date Resolution Date Notes Provider Name and Address Organization Details Recorded Time Dyslipidem ia 756272455 Active 2022 Not Available [facility] 4 06:02:42 Pain of right calf 4311674462761 103 Active 2022 Not Available [facility] 4 06:02:42 Hematoma of right lower leg 9221301248184 9100 Active 2022 Not Available [facility] 4 06:02:42 Headache 12827137 Active 2022 Not Available [facility] 4 06:02:42 Laceration of head 285298230 Active 2022 Not Available [facility] 4 06:02:42 Fatigue 46748883 Active 2023 Not Available [facility] 4 06:02:42 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 0113013354051 101 Active 2020 Not Available [facility] 4 06:02:42 Acute sinusitis 60615688 Active 2021 Not Available [facility] 4 06:02:42 Pain of right shoulder joint 5844136271454 9100 Active 2020 Not Available [facility] 4 06:02:42 Mammograph y abnormal 923456159 Active 2021 Not Available [facility] 4 06:02:42 Steatosis of liver 583698572 Active 2018 Not Available [facility] 4 06:02:42 Pain in right hip joint 9883117613379 02 Active 2022 Not Available [facility] 4 06:02:42 Essential hypertensi on 08599774 Active 2018 Not Available [facility] 4 06:02:42 COVID-19 850395044 Active 2021 Not Available [facility] 4 06:02:42 Hiatal hernia 87256772 Active 2018 Not Available [facility] 4 06:02:42 Problem Notes None recorded. Procedures Surgical History Date Name Laterality Status Provider Name and Address Organization Details Recorded Time 04/19/20 23 Medicare Wellness CPT Code, subsequent completed WOODROW Landry [facility] [facility] 04/19/2023 12:06:44 02/17/20 21 Colonoscopy with biopsy completed Not Available [facility] 11/08/2022 04:31:39 Hysterectomy completed Not Available [facility] 11/08/2022 04:31:39 Excisions - Specify completed Not Available [facility] 11/08/2022 04:31:39 manipulation of displaced nasal septum completed Not Available [facility] 11/08/2022 04:31:39 Tonsillectomy completed Not Available [facility] 11/08/2022 04:31:39 ligation of bilateral fallopian tubes completed Not Available [facility] 11/08/2022 04:31:39 Imaging Results Imaging Date Name Status LastModified by Organization Details LastModified Time 03/30/2023 US, echocardiogram completed [facility] [address], [place], [address], 04/17/2023 10:35:02 03/30/2023 US, duplex, abdominal aorta completed [email or web address] [facility] [address] [place], [address], 04/17/2023 10:35:59 04/12/2023 holter monitor completed cyl [facility] [address], [place], [address], 04/17/2023 14:12:48 04/26/2023 US, duplex, venous, lower extremity, unilateral completed cyl [facility] [address] [place], [address], 05/03/2023 10:55:22 09/07/2023 MAMMO, screening, digital, bilateral completed cyl [facility] [place], [address], 09/11/2023 15:51:38 06/25/2024 CT, abdomen + pelvis, w/ contrast completed [email or web address] [facility] (Imaging) [address] [place], [address], 06/25/2024 14:58:25 Procedure Notes None recorded. Medical Equipment None Reported. Allergies Allergen ID Allergen Name Allergen Category Reaction Reaction Severity Criticality Documentation Date Start Date Code Code System Note Provider Name and Address Organization Details Recorded Time 6689 Substance with sulfonami de structure and antibacte rial mechanism of action (substanc e) medicatio n rash Not available Not available 11/08/2022 89215 8003 SNOMED Not Available [facility] 3 04:43:56 6690 niacin medicatio n diarrhea Not available Not available 11/08/2022 7393 RxNorm Not Available [facility] 3 04:43:56 6691 Biaxin medicatio n diarrhea Not available Not available 11/08/2022 88271 9 RxNorm Not Available [facility] 3 04:43:56 Medications Name Sig Start Date Stop Date Status Note LastModified by Organization Details LastModified Time amoxicillin 500 mg capsule Take 1 capsule 3 times a day by oral route for 7 days. active Not Available Not Available No t Available doxycycline hyclate 100 mg capsule TAKE 1 CAPSULE BY MOUTH TWICE DAILY 09/17 completed Not Available Not Available Not Available azithromyci n 250 mg tablet TAKE 2 TABLETS (500 MG) BY ORAL ROUTE ONCE DAILY FOR 1 DAY THEN 1 TABLET (250 MG) BY ORAL ROUTE ONCE DAILY FOR 4 DAYS 09/17 completed Not Available Not Available Not Available prednisone 20 mg tablet Take 2 tablets every day by oral route for 5 days. active Not Available Not Available No t Available aspirin 81 mg tablet,hazel yed release Take 1 tablet every day by oral route. 2020 active Not Available Not Available Not Avai lable amoxicillin 500 mg tablet Take 1 tablet 3 times a day by oral route for 7 days. active Not Available Not Available No t Available carvedilol 3.125 mg tablet TAKE 1 TABLET BY MOUTH TWICE DAILY active Not Available Not Available No t Available amoxicillin 875 mg tablet Take 1 tablet every 12 hours by oral route. active Not Available Not Available No t Available amitriptyli ne 25 mg tablet TAKE 1 TABLET BY MOUTH EVERY NIGHT AT BEDTIME FOR 1 WEEK THEN TAKE 2 TABLETS BY MOUTH EVERY NIGHT AT BEDTIME active Not Available Not Available No t Available magnesium oxide 400 mg (241.3 mg magnesium) tablet TAKE 1 TABLET BY MOUTH TWICE DAILY 04/11 completed Not Available Not Available Not Available omeprazole 10 mg capsule,del ayed release Take 2 capsules every day by oral route. active Not Available Not Available No t Available Kenalog 10 mg/mL suspension for injection In office injection administe red by the provider 04/11 completed NDC: 0003- 0494- 20 Not Available Not Available Not Available rizatriptan 10 mg disintegrat ing tablet active Not Available Not Available N ot Available omeprazole 20 mg capsule,del ayed release 06/20 completed Not Available Not Available Not Available montelukast 10 mg tablet TAKE 1 TABLET BY MOUTH EVERY DAY 04/11 completed Not Available Not Available Not Available hydroxyzine HCl 25 mg tablet TAKE 1 TABLET BY MOUTH TWICE DAILY NEEDED active Not Available Not Available No t Available furosemide 20 mg tablet TAKE 1 TABLET BY MOUTH EVERY DAY active Not Available Not Available No t Available gabapentin 100 mg capsule TAKE 1 CAPSULE BY MOUTH EVERY DAY AT BEDTIME active Not Available Not Available No t Available methylpredn isolone 4 mg tablets in a dose pack FOLLOW PACKAGE DIRECTION S 10/30 completed Not Available Not Available Not Available losartan 100 mg tablet TAKE 1 TABLET BY MOUTH EVERY DAY active Not Available Not Available No t Available magnesium OTC 1 bid 2020 active Not Available Not Available Not Avai lable lidocaine (PF) 10 mg/mL (1 %) injection solution In office injection administe red by the provider 04/11 completed NDC: 0409- 4276- 17 Not Available Not Available Not Available krill oil 2020 active Not Available Not Available Not Avai lable Nandini Allergy prn 2020 active Not Available Not Available Not Avai lable Ocuvite Adult 50 Plus 2021 active Not Available Not Available Not Avai lable lutein 40 mg capsule Take 1 capsule every day by oral route. 06/20 completed Not Available Not Available Not Available Fluzone High-Dose Quad 2020-21 (PF) 240 mcg/0.7 mL IM syringe ADM 0.7ML IM UTD 04/11 completed Not Available Not Available Not Available Paxlovid 300 mg (150 mg x 2)-100 mg tablets in a dose pack TK 2 NIRMATREL VIR TS AND 1 RITONAVIR T TOGETHER PO BID FOR 5 DAYS TWICE DAILY FOR 5 DAYS 03/14 completed Not Available Not Available Not Available Vitals Date Recorded Body height Body mass index (BMI) Body weight Body temperature Heart rate Oxygen saturation Oxygen saturation in Arterial blood by Pulse oximetry Systolic blood pressure Diastolic blood pressure Provider Name and Address Organization Details Last Updated DateTime 3 160.02 cm 30.5 kg/m2 80522.8 9 g 97.8 [degF] 61 /min 96 % 96 % 138 mm[Hg] 80 mm[Hg] Yesenia Duarte RN [facility] [employer] [facility] 3 10:42:42 Date Recorded Body height Body mass index (BMI) Body weight Body temperature Heart rate Oxygen saturation Oxygen saturation in Arterial blood by Pulse oximetry Systolic blood pressure Diastolic blood pressure Provider Name and Address Organization Details Last Updated DateTime 3 160.02 cm 30.6 kg/m2 81309.4 8 g 96.4 [degF] 66 /min 97 % 97 % 130 mm[Hg] 70 mm[Hg] Charlee Villalta MA [facility] [employer] [facility] 3 15:30:26 Date Recorded Body height Body mass index (BMI) Body weight Body temperature Heart rate Systolic blood pressure Diastolic blood pressure Provider Name and Address Organization Details Last Updated DateTime 3 160.02 cm 30.8 kg/m2 17984.0 7 g 97.5 [degF] 69 /min 142 mm[Hg] 80 mm[Hg] Gertrudis GamaWOODROW LA [employer] [facility] 3 12:13:04 Date Recorded Body height Body mass index (BMI) Body weight Body temperature Heart rate Systolic blood pressure Diastolic blood pressure Provider Name and Address Organization Details Last Updated DateTime 3 160.02 cm 30.5 kg/m2 96269.8 9 g 97.2 [degF] 65 /min 146 mm[Hg] 84 mm[Hg] Gertrudis GamaWOODROW Alondra [place] [employer] [facility] 3 10:43:58 Date Recorded Body height Body mass index (BMI) Body weight Body temperature Heart rate Systolic blood pressure Diastolic blood pressure Provider Name and Address Organization Details Last Updated DateTime 4 160.02 cm 30.6 kg/m2 53494.4 8 g 97.5 [degF] 65 /min 130 mm[Hg] 88 mm[Hg] Gertrudis GamaWOODROW Alondra [place] [employer] [facility] 4 10:24:17 Social History Question Answer Notes LastModified by Organization Details LastModified Time Tobacco Smoking Status Former Smoker quit 1996 Not Available [facility] 11/08/2022 04:14:52 Do You Have An Advance Directive? No MIGRATION.0301 [id number] Information not available 11/08/2022 What Is Your Level Of Alcohol Consumption? Occasional MIGRATION.030 [id number] Information not available 11/08/2022 Are You Blind Or Do You Have Difficulty Seeing? No MIGRATION.030 380721 Information not available 11/08/2022 What Is Your Level Of Caffeine Consumption? Moderate MIGRATION.0301 775332 Information not available 11/08/2022 How Much Tobacco Do You Chew? None MIGRATION.0301 [id number] Information not available 11/08/2022 In The 14 Days Before Symptom Onset, Have You Had Close Contact With A Laboratory-conf irmed COVID-19 While That Case Was Ill? No MIGRATION.030 256716 Information not available 11/08/2022 In The 14 Days Before Symptom Onset, Have You Had Close Contact With A Person Who Is Under Investigation For COVID-19 While That Person Was Ill? No MIGRATION.0301 285167 Information not available 11/08/2022 Are You Deaf Or Do You Have Serious Difficulty Hearing? No MIGRATION.0301 861657 Information not available 11/08/2022 What Type Of Diet Are You Following? REGULAR High Fiber Diet MIGRATION.0301 753867 Information not available 11/08/2022 Which Illicit Or Recreational Drugs Have You Used? None MIGRATION.0301 992706 Information not available 11/08/2022 Do You Or Have You Ever Used E-cigarettes Or Vape? Never Used Electronic Cigarettes MIGRATION.0301 579895 Information not available 11/08/2022 What Is The Highest Grade Or Level Of School You Have Completed Or The Highest Degree You Have Received? [id number] MIGRATION.0301 429425 Information not available 11/08/2022 What Is Your Occupation? Retired MIGRATION.0301 993267 Information not available 11/08/2022 Have There Been Any Changes To Your Family Or Social Situation? Yes Twin Sister Diagnosed With Stage 4 Colon Cancer - Doing Better Now [email or web address] Information not available 03/14/2023 What Is The Fluoride Status Of Your Home? Unknown MIGRATION.0301 920798 Information not available 11/08/2022 When Did You Quit Smoking? 16+yearssincelastc igarette MIGRATION.0301 722884 Information not available 11/08/2022 Are There Any Guns Present In Your Home? No MIGRATION.0301 931470 Information not available 11/08/2022 Do You Use Insect Repellent Routinely? No MIGRATION.0301 505315 Information not available 11/08/2022 Where Do You Live? SingleLevelHouse MIGRATION.0301 516483 Information not available 11/08/2022 Do You Have A Medical Power Of Account [employer]? No MIGRATION.0301 780934 Information not available 11/08/2022 What Was The Date Of Your Most Recent Tobacco Screening? 09/17/2023 [email or web address] Information not available 09/17/2023 Have You Ever Been Counseled For Unhealthy Alcohol Use? No MIGRATION.0301 242701 Information not available 11/08/2022 Do You Have Any Pets? Yes MIGRATION.0301 151330 Information not available 11/08/2022 What Is Your Relationship Status? MIGRATION.0301 075843 Information not available 11/08/2022 Do You Use Your Seat Belt Or Car Seat Routinely? Yes MIGRATION.0301 322389 Information not available 11/08/2022 Do You Have Smoke And Carbon Monoxide Detectors In Your Home? Yes MIGRATION.0301 944309 Information not available 11/08/2022 Are You Passively Exposed To Smoke? No MIGRATION.0301 394402 Information not available 11/08/2022 Do You Or Have You Ever Used Smokeless Tobacco? Never Used Smokeless Tobacco MIGRATION.0301 346804 Information not available 11/08/2022 Are There Any Smokers In Your House? No MIGRATION.0301 801735 Information not available 11/08/2022 How Much Tobacco Do You Smoke? No MIGRATION.0301 671990 Information not available 11/08/2022 What Types Of Sporting Activities Do You Participate In? None MIGRATION.0301 624458 Information not available 11/08/2022 Do You Feel Stressed (tense, Restless, Nervous, Or Anxious, Or Unable To Sleep At Night)? [id number] MIGRATION.0301 818725 Information not available 11/08/2022 Do You Use Any Illicit Or Recreational Drugs? No MIGRATION.0301 280312 Information not available 11/08/2022 Do You Use Sunscreen Routinely? Yes MIGRATION.0301 397536 Information not available 11/08/2022 Has Tobacco Cessation Counseling Been Provided? No MIGRATION.0301 140084 Information not available 11/08/2022 Have You Recently Traveled Abroad? No MIGRATION.0301 949793 Information not available 11/08/2022 Do You Have Any Dietary Restrictions? No MIGRATION.0301 335551 Information not available 11/08/2022 Do You Or Have You Ever Used Any Other Forms Of Tobacco Or Nicotine? No MIGRATION.0301 838979 Information not available 11/08/2022 Sex: Female Functional Status Question Answer Note LastModified by Organizat ion Details LastModified Time Do you have difficulty walking or climbing stairs? No MIGRATION.[id number] 026 Information not available 11/08/2022 Do you have transportation difficulties? No MIGRATION.7515023 026 Information not available 11/08/2022 Are you able to walk? YESWOREST MIGRATION.4012254 026 Information not available 11/08/2022 Do you have difficulty doing errands alone? No MIGRATION.9928094 026 Information not available 11/08/2022 Are you able to care for yourself? Yes MIGRATION.0000232 026 Information not available 11/08/2022 Do you have difficulty dressing or bathing? No MIGRATION.7572154 026 Information not available 11/08/2022 What is your exercise level? None MIGRATION.4422112 026 Information not available 11/08/2022 Mental Status Question Answer Note LastModified by Organizat ion Details LastModified Time Do you have difficulty concentrating, remembering or making decisions? No MIGRATION.[id number] 6 Information not available 11/08/2022 Family History Relationship Description Onset Age of this Age Resolved Age Notes LastModified by Organization Details LastModified Time Father Diabetes mellitus MIGRATION.993 [id number] Not available 11/08/2022 04:31:43 Father Hypertensive disorder MIGRATION.349 [id number] Not available 11/08/2022 04:31:43 Father Heart disease MIGRATION.575 [id number] Not available 11/08/2022 04:31:43 Brother Diabetes mellitus MIGRATION.421 [id number] Not available 11/08/2022 04:31:43 Brother Hypertensive disorder MIGRATION.185 [id number] Not available 11/08/2022 04:31:43 Brother Atrial flutter 45 MIGRATION.862 [id number] Not available 11/08/2022 04:31:43 Sister Diabetes mellitus twin MIGRATION.037 1453439 Not available 11/08/2022 04:31:43 Sister Hypertensive disorder twin MIGRATION.489 [id number] Not available 11/08/2022 04:31:43 Sister Family history of malignant neoplasm stage 3 colon cancer [email or web address] Not available 04/19/2023 12:11:30 Medical History Condition Response NERVE DISEASE N BLINDNESS N RHEUMATIC FEVER N KIDNEY STONES N BLADDER PROBLEMS N MRSA N OTHER # 1 N POLIO N LUNG DISEASE/DISORDER N RADIATION / CHEMOTHERAPY N COPD N Other # 2 N BLOOD DISEASES N EAR OR HEARING PROBLEMS N MUMPS N BOWEL PROBLEMS N DEPRESSION (INCLUDING POST ) N STROKE/TIA N ULCERS Y BENIGN PROSTATIC HYPERPLASIA N MEASLES N MYOCARDIAL INFARCTION N OBESITY N GERD/NAUSEA N ANEURYSM N URINARY/BLADDER/KIDNEY PROBLEMS N CORONARY ARTERY DISEASE (CAD) N ADDICTION CONCERNS N Impotence N ENDOMETRIOSIS N USE OF BLOOD THINNERS N SKIN PROBLEMS N GASTROINTESTINAL DISORDER N PERIPHERAL VASCULAR DISEASE N MUSCLE,JOINT OR BONE PROBLEMS N GASTROINTESTINAL BLEEDING N BLOOD CLOTS N ASTHMA N CATARACTS N ERECTILE DYSFUNCTION N VARICOSITIES N GI PROBLEMS N Low Testosterone N INFERTILITY N AIDS/HIV N CHEMOTHERAPY / RADIATION N LIVER DISEASE N MALE HYPOGONADISM N HYPERTENSION Y Deficiency N TOURETTE'S N ANXIETY DISORDER N BLOOD TRANSFUSION N ANEMIA/BLOOD DISORDER N CHRONIC EAR INFECTIONS N BRONCHITIS N TUBERCULOSIS N GLAUCOMA N FOOT PROBLEM N DIVERTICULITIS N SLEEP APNEA N CHICKENPOX N INFECTIOUS DISEASE N PROSTATE N HEART ARRHYTHMIA N INSOMNIA N HIGH CHOLESTEROL / HYPERLIPIDEMIA N EYE PROBLEMS N HYPERTHYROIDISM N EDEMA N CHRONIC PAIN SYNDROME N HYPOTHYROIDISM N CONSTIPATION N CAROTID BLOCKAGE N BACK / NECK PROBLEMS N HAVE YOU BEEN HOSPITALIZED OR SEEN IN [facility] IN THE PAST YEAR ? N ATHEROSCLEROSIS N BREAST PROBLEMS N DIALYSIS N ECZEMA N OSTEOPOROSIS N ARTHRITIS Y APPENDICITIS N DIABETES, TYPE N BAD TEETH N ENT N HEARTBURN / REFLUX Y AUTISM SPECTRUM DISORDER (ASD) N HEPATITIS / LIVER DISEASE Y GOUT N SLEEP DISORDER N ALZHEIMER'S DISEASE N Brain Problems N DEMENTIA N HERPES N SEIZURES/EPILEPSY N HEADACHES/MIGRAINES N VASCULAR DISEASE N PACEMAKER N Blood Disorder N DIZZINESS N HEART DISEASE/HEART PROBLEMS N KIDNEY DISEASE N MULTIPLE SCLEROSIS N CANCER: SPECIFY N CARDIAC ARRHYTHMIA N ATRIAL FIBRILLATION N Gall Stones N PULMONARY EMBOLISM N AUTOIMMUNE DISEASE N Gynecological History Statement/Question Response Date of Last Mammogram 10/15/2020 Current Control Method Hysterectom y Obstetrics History GPAL:G 0 P 0 0 0 0 Immunizations Vaccine Type Date Status Note Provider Nam e and Address Organization Details Recorded Time COVID-19, mRNA, LNP-S, PF, 30 mcg/0.3 mL dose 02/05/2021 completed Not Available [facility] 4 06:02:43 COVID-19, mRNA, LNP-S, PF, 30 mcg/0.3 mL dose 01/15/2021 completed Not Available [facility] 4 06:02:43 Influenza, high-dose, trivalent, PF 06/13/2019 completed Not Available [facility] 2023 06:02:43 Influenza, high-dose, trivalent, PF 07/11/2018 completed Not Available [facility] 2023 06:02:43 Influenza, high-dose, quadrivalent, PF 06/23/2020 completed Not Available [facility] 4 06:02:42 Past Encounters Encounter ID Performer Location Encounter Start Date Encounter Closed Date Diagnosis/Indication Diagnosis SNOMED-CT Code Diagnosis ICD10 Code Diagnosis Note [id number] [facility] [address] [place] [address] 01/14/2021 00:00:00 01/30/2021 17:42:41 [id number] [facility] [address] [facility] 15 [place] [address] 04/11/2021 00:00:00 05/01/2021 16:06:45 [id number] [facility] Internal Med [facility] [address] [address] 07/06/2021 00:00:00 07/06/2021 22:37:03 [id number] [facility] Internal Med [facility] [address] [address] 11/02/2021 00:00:00 11/05/2021 22:24:59 [id number] [facility] [address] [facility] [address] [address] 03/01/2022 00:00:00 03/03/2022 21:04:54 [id number] [facility] Internal Med [facility] [address] [address] 06/28/2022 00:00:00 08/08/2022 22:26:41 [id number] [facility] Internal Med Jaspreet summers [id number] [facility] , [facility] [address] 10/03/2022 00:00:00 10/22/2022 13:03:54 [id number] Shan Walters MD [facility] Internal Med [facility] [address] [address] 03/14/2023 10:32:18 03/14/2023 11:03:54 Steatosis of liver 622648832 K76.0 Essential hypertension 06815848 I10 Dyslipidemia 372687325 E 78.5 [id number] Shan Walters MD [facility] Internal Med [facility] [address] [address] 04/16/2023 14:51:35 04/16/2023 17:52:56 Laceration of head 724583967 S01.91XD [id number] Shan Walters MD [facility] Internal Med [facility] [address] [facility] [place] [address] 04/19/2023 11:55:12 04/19/2023 13:19:47 Adult health examination 090844514 Z00.00 Screening for disorder 770501817 Z13.9 Pain of right calf 83699 72826 366838 M79.661 [id number] Shan Walters MD [facility] Internal Med [facility] [address] [address] 05/03/2023 10:36:54 05/03/2023 10:57:12 Hematoma of right lower leg [id number] S80.11XD [id number] Shan Walters MD [facility] Internal Med [facility] [address] [facility] 15 [place] [address] 09/17/2023 10:07:53 09/17/2023 11:31:00 Essential hypertension 00415471 I10 Headache 87956523 R51.9 Fatigue 39569599 R53.83 Dyslipidemia 738197180 E 78.5 Steatosis of liver 1007 K76.0 Health Concerns Section Related Observation LastModified by Organization Detai ls LastModified Time None Recorded Concern Status LastModified by Organization Details LastModified Time None Recorded Advance Directives Directive N: Payers Encounter Date Sequence Insurance Name Policy Number Policy May Covered Member ID May Member ID Guarantor Name 03/14/2023 1 [facility] (MEDICARE REPLACEMENT/A DVANTAGE - PPO) [id number] Valentina Griggs [id number] Valentina Griggs 04/16/2023 1 [facility] (MEDICARE REPLACEMENT/A DVANTAGE - PPO) [id number] Valentina Griggs [id number] Vaelntina Griggs 04/19/2023 1 [facility] (MEDICARE REPLACEMENT/A DVANTAGE - PPO) [id number] Valentina Griggs [id number] Valentina Griggs 05/03/2023 1 [facility] (MEDICARE REPLACEMENT/A DVANTAGE - PPO) [id number] Valentina Griggs [id number] Valentina Grimes Swathi 09/17/2023 1 [facility] (MEDICARE REPLACEMENT/A DVANTAGE - PPO) [id number] Valentina Grimes Swathi [id number] Valentina M Swathi Notes Date Note Type Note Provider Name and Address Organization Details Recorded Time 3 text/html steatosis of liver does try to watch her weighthypertension no headache no dizzinessdyslipidemia does try to watch intake of saturated fat Shan Walters MD [address], [place], [address], [employer] 03/14/2023 11:21:05 3 text/html Fall head laceration some leg pain she was evaluated at [facility] Shan Walters MD [address], [place], [address], [employer] 09/06/2023 13:47:27 3 text/html Still pain in the right calf Shan Walters MD [address], [place], [address], [employer] 07/08/2023 18:50:40 3 text/html her legs doing better got the shasha out her Shan Walters MD [address], [place], [address], [employer] 05/03/2023 22:42:34 4 text/html Hypertension no chest pain or shortness of breath headache stems from her head trauma was given medicines by Neurology and she could not tolerate them she has had some nonspecific fatigue Shan Walters MD [address], [place], [address], [employer] 09/17/2023 23:19:01 OBGyn Episode No OBEpisode recorded.
--- OUTSIDE RECORDS SUMMARY | 2024-10-29 00:32 | XMS_ITS | Encounter Summary ---
Author Organization [facility] Address [address] [place] [address] Care Team Providers Care Sql Programmer Analyst Name Role Phone Homer Mckeon MD Primary Care Provider + Encounter Details Date Type Department Care Team (Late st Contact Info) Description 10/28/2007 Outpatient Historical HIS [facility] Shana Rodriguez MD [address] [place] [address] [address] [address] Lump or Mass in Breast Social History Tobacco Use Types Packs/Day Years Used Date Smoking Tobacco: Never Assessed Comments Unknown Sex and Gender Information Value Date Recorded Sex Assigned at Not on file Legal Sex Female 4:22 AM 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 Gender Identity Not on file Sexual Orientation Not on file documented as of this encounter Plan of Treatment Not on file documented as of this encounter Procedures Procedure Name Priority Date/Time Associated Diagnosis Comments MAMMO DIAGNOSTIC BILATERAL W OR WO CAD Timed Study 10/28/2007 10:47 AM 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 documented in this encounter Results * MAMMO DIGITAL DIAG BILAT (10/28/2007 10:47 AM 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) Anatomical Region Laterality Modality Breast Bilateral Other 10/28/2007 10:4 7 AM 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 Narrative 10/28/2007 1:50 PM 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 [facility] [address] [place], [place] [address] Admit Date: 10/28/2007 VALENTINA GRIGGS Sex: F Admit Prov: SHANA SANTAMARIA Date: 1950 Primary Care Prov: PCP, UNKNOWN CMRN: [id number] Room: [facility]: [id number] IMAGING SERVICES Ordering Prov: SHANA SANTAMARIA Accession Number: [id number] Interpretation Diagnostic mammogram 10/28/2007 History: Followup abnormal mammogram. The diagnostic examination was performed bilaterally and compared with 06/17/2007, 10/19/05, and 10/19/04. The breast parenchyma remains heterogenously dense. A dominant mass in the upper left breast is stable. A tiny group of calcifications in the upper right breast are stable. No new masses, suspicious calcifications or areas of parenchymal asymmetry or distortion are identified. The films were reviewed using the CAD system. Impression: Category 1 negative Stable bilateral diagnostic mammogram. Recommend routine follow up Assessment BIRADS: 1-Negative Recommendation: Normal interval follow-up Dictated by: REGINA TRAN Electronically signed by: REGINA TRAN 10/28/2007 13:50 Transcribed: 10/28/2007 11:43 AMK Procedure Note Provider, Historical - 10/28/[address] [address] Admit Date: 10/28/2007 VALENTINA GRIGGS Sex: F Admit Prov: SHANA SANTAMARIA Date: 1950 Primary Care Prov: PCP, UNKNOWN CMRN: [id number] Room: BARBARAEdith N: [id number] IMAGING SERVICES Ordering Prov: SHANA SANTAMARIA Interpretation Diagnostic mammogram 10/28/2007 History: Followup abnormal mammogram. The diagnostic examination was performed bilaterally and comparedwith 06/17/2007, 10/19/05, and 10/19/04. The breast parenchyma remainsheterogenously dense. A dominant mass in the upper left breast is stable. A tinygroup of calcifications in the upper right breast are stable. No new masses, suspicious calcifications or areas of parenchymal asymmetry ordistortion are identified. The films were reviewed using the CAD system. Impression: Category 1 negative Stable bilateral diagnostic mammogram. Recommend routine follow up Assessment BIRADS: 1-Negative Recommendation: Normal interval follow-up Dictated by: REGINA TRAN Electronically signed by: REGINA TRAN 10/28/2007 13:50 Transcribed: 10/28/2007 11:43 AMK us Shanasa Edith Santamaria MD MAMMO ORDERABLES Final Resul t documented in this encounter Visit Diagnoses Diagnosis Lump or mass in breast documented in this encounter Care Teams Sql Programmer Analyst Relationship Specialty Start Date End Date Homer Mckeon MD PCP - General Internal Medicine 12/11/11 documented as of this encounter
--- OUTSIDE RECORDS SUMMARY | 2024-10-29 00:32 | XMS_ITS | Encounter Summary ---
Author Organization [facility] Healthcare Address [address] [place] [address] Care Team Providers Care Tire Bagger Name Role Phone Unavailable Primary Care Provider Unavailabl e Reason for Visit * Diagnostic Imaging (Routine) - Closed Specialty Diagnoses / Procedures Referred By Chinedu hardwick Referred To Contact Procedures Breast Imaging Screening Outside Reference Wilberto Yarbrough NP Phone: tel: fax: Referral ID Status Reason Start Date Expiration Date Visits Re quested Visits Authorized [id number] Closed 08/24/2022 09/23/2023 1 1 Encounter Details Date Type Department Care Team (Late st Contact Info) Description 10/15/2020 Hospital Encounter [facility] [place] [address] Social History Tobacco Use Types Packs/Day Years Used Date Smoking Tobacco: Never Smokeless Tobacco: Never Comments Unknown Sex and Gender Information Value Date Recorded Sex Assigned at Not on file Legal Sex Female 10:47 PM PROMOTION PRODUCER Gender Identity Not on file Sexual Orientation Not on file documented as of this encounter Plan of Treatment Not on file documented as of this encounter Procedures Procedure Name Priority Date/Time Associated Diagnosis Comments BREAST IMAGING MG SCREENING OUTSIDE REFERENCE Routine 10/15/2020 12:00 AM PROMOTION PRODUCER documented in this encounter Results * Breast Imaging Screening Outside Reference (10/15/2020 12:00 AM PROMOTION PRODUCER) Impressions [facility] - 08/24/2022 9:57 AM PROMOTION PRODUCER These images are for Reference purposes only and have not been reviewed by [facility]. There will be no report generated by a [facility] Radiologist. Narrative [facility] - 08/24/2022 9:57 AM PROMOTION PRODUCER EXAMINATION: Images For Reference Purposes Only us Wilberto Yarbrough NP IMG MAMMO PROCEDURES Final Result [facility] documented in this encounter Visit Diagnoses Not on filedocumented in this encounter
--- OUTSIDE RECORDS SUMMARY | 2024-10-29 00:32 | XMS_ITS | Data Portability ---
Author Organization [facility] MEYBryceia Vinicio Address [address] [place] [address] Care Team Providers Care Boarder Machine Name Role Phone SHAN WALTERS Primary Care Provider Unavailabl e Assessment Encounter Date Assessment Date Assessment LastModified by Organization Details LastModified Time 02/18/2024 02/18/2024 Valtrex refill h er gabapentin avoid small children women anyone going chemotherapy or immunocompromised keep covered until fully scabbed over Not available 02/18/2024 22:56:09 03/12/2024 03/12/2024 healthy lifestyl e care instructions were given we will continue with current therapy has had some edema we will use 20 mg of Lasix daily p.r.n. continue other medications side effects have been discussed see me in 4 months [email or web address] Not available 04/20/2024 14:31:31 06/12/2024 06/12/2024 blood pressure i s controlled for abdominal pain she will have stool for O&P C&S C diff. Pepcid 40 mg daily Flagyl 500 t.i.d. times [address] abdomen and pelvis with contrast regular visit in 3 months she will call when done with antibiotics Not available 07/13/2024 21:13:18 07/21/2024 07/21/2024 pantoprazole b.i .d. for a couple more weeks then she can go back to daily. We have requested her Cologuard report she will follow up with me in 4 months records from hospital removed. Healthy lifestyle care instructions try to help her with some weight loss [email or web address] Not available 07/23/2024 23:00:49 Plan of Treatment Reminders Order Date Submit Date Provider Last Modified By Organization Details Last Modified Time Details Appointments ANY 15 2024 09:30A Sydney Walters MD Not available Not available Not available Lab urinalysi s macro (dipstick ) panel, urine 2023 PORSCHERUPERTO Patel, [address], [place], [address], 07/30/2024 13:11:48 urinalysi s, microscop ic 2023 024 DE PERE Jorge, [address], [place], [address], 07/30/2024 13:11:47 gastroint estinal pathogens panel, culture, stool 2023 024 DE PERE Rula, [address], [place], [address], 06/22/2024 07:08:35 O&P (ova & parasites ), stool 2023 024 PORSCHE Rula, [address], [place], [address], 06/25/2024 15:12:14 C diff toxin A+B, qual IA, stool 2023 024 DE PERE Rula, [address], [place], [address], 06/18/2024 15:12:19 CBC w/ auto diff 2023 024 PORSCHE Horta, [address], [place], [address], 06/17/2024 08:26:02 CMP, serum or plasma 2023 024 PORSCHE Rula, [address], [place], [address], 06/17/2024 08:25:58 lipase, serum or plasma 2023 DE PERE [facility], [address], [place], [address], 06/17/2024 08:25:59 urinalysi s macro (dipstick ) panel, urine 2023 DE PERE [facility], [address], [place], [address], 06/17/2024 08:26:01 Referral None recorded. Procedures None recorded. Surgeries None recorded. Imaging CT, abdomen + pelvis, w/ contrast 2023 [facility] ([facility]), [address] [facility], [place], [address], 06/25/2024 14:35:16 Medication Orders Pepcid 40 mg tablet 2023 024 [facility] #[id number], [address], [place], [place], [id number], 07/21/2024 11:49:34 metronida zole 500 mg tablet 2023 024 [facility] #[id number], [address], [place], [place], [id number], 07/21/2024 11:48:04 Valtrex 1 gram tablet 2023 024 [facility] #[id number], [address], [place], [place], [id number], 07/21/2024 11:48:16 gabapenti n 300 mg capsule 2023 024 [email or web address] [facility] #[id number], [address], [place], [place], [id number], 02/18/2024 18:14:45 Patient TargetsNo targets recorded. Patient Instructions Encounter Date Encounter Id Patient Instructions Last Modified By Organization Details Last Modified Time 03/12/2024 [id number] A healthy lifestyle: care instructions [email or web address] Not available 03/12/2024 13:13:34 06/12/2024 [id number] A healthy lifestyle: care instructions [email or web address] Not available 06/12/2024 14:18:25 07/21/2024 [id number] A healthy lifestyle: care instructions [email or web address] Not available 07/21/2024 14:27:56 Reason for Referral None Reported. Results Created Date Observation Date Name Description Value Unit Range Abnormal Flag Note LastModifiedBy Organization Detail LastModifiedTime 06/16/2006/17/2024 COMP. METAB OLIC PANEL (14) glucose 103 mg/dL 70-99 above high normal Not Available [facility] ([facility]) [address] [place], [address], 06/17/2024 08:25:58 06/16/2006/17/2024 COMP. METAB OLIC PANEL (14) BUN 11 mg/dL 8-27 Not Available [facility] ([facility]) [address] [place], [address], 06/17/2024 08:25:58 06/16/2006/17/2024 COMP. METAB OLIC PANEL (14) creatinine 0.75 mg/dL 0.57-1 .00 Not Available [facility] ([facility]) [address] [place], [address], 06/17/2024 08:25:58 06/16/2006/17/2024 COMP. METAB OLIC PANEL (14) eGFR 84 mL/mi n/1.7 3 >59 Not Available [facility] ([facility]) [address] [place], [address], 06/17/2024 08:25:58 06/16/20 24 06/17/2024 COMP. METAB OLIC PANEL (14) BUN/creatini ne ratio 15 12-28 Not Available [facility] ([facility]) [address] [place], [address], 06/17/2024 08:25:58 06/16/2006/17/2024 COMP. METAB OLIC PANEL (14) sodium 144 mmol/ L 134-14 4 Not Available [facility] ([facility]) [address] [facility], [address], 06/17/2024 08:25:58 06/16/2006/17/2024 COMP. METAB OLIC PANEL (14) potassium 4.3 mmol/ L 3.5-5. 2 Not Available [facility] ([facility]) [address] [facility], [place], [address], 06/17/2024 08:25:58 06/16/2006/17/2024 COMP. METAB OLIC PANEL (14) chloride 106 mmol/ L 96-106 Not Available [facility] ([facility]) [address] [facility], [place], [address], 06/17/2024 08:25:58 06/16/20 24 06/17/2024 COMP. METAB OLIC PANEL (14) carbon dioxide, total 24 mmol/ L 20-29 Not Available [facility] ([facility]) [address] [facility] [place], [address], 06/17/2024 08:25:58 06/16/2006/17/2024 COMP. METAB OLIC PANEL (14) calcium 9.8 mg/dL 8.7-10 .3 Not Available [facility] ([facility]) [address] [facility] [place], [address], 06/17/2024 08:25:58 06/16/2006/17/2024 COMP. METAB OLIC PANEL (14) protein, total 6.7 g/dL 6.0-8. 5 Not Available [facility] ([facility]) [address] [facility] [place], [address], 06/17/2024 08:25:58 06/16/2006/17/2024 COMP. METAB OLIC PANEL (14) albumin 4.2 g/dL 3.8-4. 8 Not Available [facility] ([facility]) [address] [facility], [place], [address], 06/17/2024 08:25:58 06/16/20 24 06/17/2024 COMP. METAB OLIC PANEL (14) globulin, total 2.5 g/dL 1.5-4. 5 Not Available [facility] ([facility]) [address] [facility], [place], [address], 06/17/2024 08:25:58 06/16/2006/17/2024 COMP. METAB OLIC PANEL (14) bilirubin, total 0.4 mg/dL 0.0-1. 2 Not Available [facility] ([facility]) [address] [facility], [place], [address], 06/17/2024 08:25:58 06/16/20 24 06/17/2024 COMP. METAB OLIC PANEL (14) alkaline phosphatase 80 IU/L 44-121 Not Available [facility] ([facility]) [address] [place], [address], 06/17/2024 08:25:58 06/16/20 24 06/17/2024 COMP. METAB OLIC PANEL (14) AST (SGOT) 51 IU/L 0-40 above high normal Not Available [facility] ([facility]) [address] [facility], [place], [address], 06/17/2024 08:25:58 06/16/20 24 06/17/2024 COMP. METAB OLIC PANEL (14) ALT (SGPT) 36 IU/L 0-32 above high normal Not Available [facility] ([facility]) [address] [facility], [place], [address], 06/17/2024 08:25:58 06/16/20 24 06/17/2024 LIPAS E lipase 29 U/L 14-85 Not Available [facility] ([facility]) [address] [facility], [place], [address], 06/17/2024 08:25:59 06/16/2006/17/2024 URINA LYSIS , ROUTI NE specific gravity 1.014 1.005- 1.030 Not Available [facility] ([facility]) [address] [facility], [place], [address], 06/17/2024 08:26:01 06/16/2006/17/2024 URINA LYSIS , ROUTI NE pH 6.5 5.0-7. 5 Not Available [facility] ([facility]) [address] [facility], [place], [address], 06/17/2024 08:26:01 06/16/2006/17/2024 URINA LYSIS , ROUTI NE urine-color YELLOW yellow Not Available [facility] ([facility]) [address] [facility], [place], [address], 06/17/2024 08:26:01 06/16/2006/17/2024 URINA LYSIS , ROUTI NE appearance CLEAR clear Not Available [facility] ([facility]) [address] [facility], [place], [address], 06/17/2024 08:26:01 06/16/2006/17/2024 URINA LYSIS , ROUTI NE WBC esterase NEGATI VE negati ve Not Available [facility] ([facility]) [address] [facility], [place], [address], 06/17/2024 08:26:01 06/16/2006/17/2024 URINA LYSIS , ROUTI NE protein NEGATI VE negati ve/tra ce Not Available [facility] ([facility]) [address] [facility], [place], [address], 06/17/2024 08:26:01 06/16/2006/17/2024 URINA LYSIS , ROUTI NE glucose NEGATI VE negati ve Not Available [facility] ([facility]) [address] [place], [address], 06/17/2024 08:26:01 06/16/2006/17/2024 URINA LYSIS , ROUTI NE ketones NEGATI VE negati ve Not Available [facility] ([facility]) [address] [place], [address], 06/17/2024 08:26:01 06/16/2006/17/2024 URINA LYSIS , ROUTI NE occult blood NEGATI VE negati ve Not Available [facility] ([facility]) [address] [place], [address], 06/17/2024 08:26:01 06/16/2006/17/2024 URINA LYSIS , ROUTI NE bilirubin NEGATI VE negati ve Not Available [facility] ([facility]) [address] [place], [address], 06/17/2024 08:26:01 06/16/2006/17/2024 URINA LYSIS , ROUTI NE urobilinogen ,semi-qn 0.2 mg/dL 0.2-1. 0 Not Available [facility] ([facility]) [address] [place], [address], 06/17/2024 08:26:01 06/16/2006/17/2024 URINA LYSIS , ROUTI NE nitrite, urine NEGATI VE negati ve Not Available [facility] ([facility]) [address] [place], [address], 06/17/2024 08:26:01 06/16/2006/17/2024 URINA LYSIS , ROUTI NE microscopic examination COMMEN T Micro scopi c not indic ated and not perfo rmed. Not Available [facility] ([facility]) [address] [place], [address], 06/17/2024 08:26:01 06/16/2006/17/2024 CBC WITH DIFFE RENTI AL/PL ATELE T WBC 6.4 x10e3 /uL 3.4-10 .8 Not Available [facility] ([facility]) [address] [facility], [place], [address], 06/17/2024 08:26:02 06/16/20 24 06/17/2024 CBC WITH DIFFE RENTI AL/PL ATELE T RBC 4.65 x10e6 /uL 3.77-5 .28 Not Available [facility] ([facility]) [address] [place], [address], 06/17/2024 08:26:02 06/16/20 24 06/17/2024 CBC WITH DIFFE RENTI AL/PL ATELE T hemoglobin 14.7 g/dL 11.1-1 5.9 Not Available [facility] ([facility]) [address] [facility], [place], [address], 06/17/2024 08:26:02 06/16/2006/17/2024 CBC WITH DIFFE RENTI AL/PL ATELE T hematocrit 43.8 % 34.0-4 6.6 Not Available [facility] ([facility]) [address] [place], [address], 06/17/2024 08:26:02 06/16/2006/17/2024 CBC WITH DIFFE RENTI AL/PL ATELE T MCV 94 fL 79-97 Not Available [facility] ([facility]) [address] [place], [address], 06/17/2024 08:26:02 06/16/20 24 06/17/2024 CBC WITH DIFFE RENTI AL/PL ATELE T MCH 31.6 pg 26.6-3 3.0 Not Available [facility] ([facility]) [address] [place], [address], 06/17/2024 08:26:02 06/16/2006/17/2024 CBC WITH DIFFE RENTI AL/PL ATELE T MCHC 33.6 g/dL 31.5-3 5.7 Not Available [facility] ([facility]) [address] [facility], [place], [address], 06/17/2024 08:26:02 06/16/2006/17/2024 CBC WITH DIFFE RENTI AL/PL ATELE T RDW 12.5 % 11.7-1 5.4 Not Available [facility] ([facility]) [address] [facility], [place], [address], 06/17/2024 08:26:02 06/16/20 24 06/17/2024 CBC WITH DIFFE RENTI AL/PL ATELE T platelets 243 x10e3 /uL 150-45 0 Not Available [facility] ([facility]) [address] [facility], [place], [address], 06/17/2024 08:26:02 06/16/2006/17/2024 CBC WITH DIFFE RENTI AL/PL ATELE T neutrophils 57 % notest ab. Not Available [facility] ([facility]) [address] [facility], [place], [address], 06/17/2024 08:26:02 06/16/20 24 06/17/2024 CBC WITH DIFFE RENTI AL/PL ATELE T lymphs 29 % notest ab. Not Available [facility] ([facility]) [address] [facility], [place], [address], 06/17/2024 08:26:02 06/16/20 24 06/17/2024 CBC WITH DIFFE RENTI AL/PL ATELE T monocytes 12 % notest ab. Not Available [facility] ([facility]) [address] [facility], [place], [address], 06/17/2024 08:26:02 06/16/20 24 06/17/2024 CBC WITH DIFFE RENTI AL/PL ATELE T eos 1 % notest ab. Not Available [facility] ([facility]) [address] [facility], [place], [address], 06/17/2024 08:26:02 06/16/20 24 06/17/2024 CBC WITH DIFFE RENTI AL/PL ATELE T basos 1 % notest ab. Not Available [facility] ([facility]) [address] [facility], [place], [address], 06/17/2024 08:26:02 06/16/20 24 06/17/2024 CBC WITH DIFFE RENTI AL/PL ATELE T neutrophils (absolute) 3.6 x10e3 /uL 1.4-7. 0 Not Available [facility] ([facility]) [address] [facility], [place], [address], 06/17/2024 08:26:02 06/16/20 24 06/17/2024 CBC WITH DIFFE RENTI AL/PL ATELE T lymphs (absolute) 1.9 x10e3 /uL 0.7-3. 1 Not Available [facility] ([facility]) [address] [facility], [place], [address], 06/17/2024 08:26:02 06/16/20 24 06/17/2024 CBC WITH DIFFE RENTI AL/PL ATELE T monocytes(ab solute) 0.8 x10e3 /uL 0.1-0. 9 Not Available [facility] ([facility]) [address] [place], [address], 06/17/2024 08:26:02 06/16/20 24 06/17/2024 CBC WITH DIFFE RENTI AL/PL ATELE T eos (absolute) 0.1 x10e3 /uL 0.0-0. 4 Not Available [facility] ([facility]) [address] [place], [address], 06/17/2024 08:26:02 06/16/20 24 06/17/2024 CBC WITH DIFFE RENTI AL/PL ATELE T baso (absolute) 0.1 x10e3 /uL 0.0-0. 2 Not Available [facility] ([facility]) [address] [facility], [place], [address], 06/17/2024 08:26:02 06/16/20 24 06/17/2024 CBC WITH DIFFE RENTI AL/PL ATELE T immature granulocytes 0 % notest ab. Not Available [facility] ([facility]) [address] [facility], [place], [address], 06/17/2024 08:26:02 06/16/20 24 06/17/2024 CBC WITH DIFFE RENTI AL/PL ATELE T immature grans (abs) 0.0 x10e3 /uL 0.0-0. 1 Not Available [facility] ([facility]) [address] [facility], [place], [address], 06/17/2024 08:26:02 06/17/20 24 06/18/2024 C DIFFI CILE TOXIN S A+B, EIA C difficile toxins A+B, EIA NEGATI VE negati ve Not Available [facility] ([facility]) [address] [facility], [place], [address], 06/18/2024 15:12:19 06/17/20 24 06/19/2024 STOOL CULTU RE salmonella/s higella screen FINAL REPORT Not Available [facility] ([facility]) [address] [place], [address], 06/22/2024 07:08:35 06/17/20 24 06/19/2024 STOOL CULTU RE E coli shiga toxin EIA NEGATI VE negati ve Not Available [facility] ([facility]) [address] [place], [address], 06/22/2024 07:08:35 06/17/20 24 06/19/2024 STOOL CULTU RE result 1 COMMEN T No Salmo elsy or Shige lla recov ered. Not Available [facility] ([facility]) [address] [facility], [place], [address], 06/22/2024 07:08:35 06/17/2006/22/2024 STOOL CULTU RE campylobacte r culture FINAL REPORT Not Available [facility] ([facility]) [address] [facility], [place], [address], 06/22/2024 07:08:35 06/17/2006/22/2024 STOOL CULTU RE result 1 COMMEN T No Campy lobac ter speci es isola moni. Not Available [facility] ([facility]) [address] [facility], [place], [address], 06/22/2024 07:08:35 06/17/2006/25/2024 OVA + JORGE ITE EXAM ova + parasite exam FINAL REPORT These resul ts were obtai kaity using wet prepa ratio n(s) and trich neto stain ed smear . This test does not inclu de testi ng for Crypt ospor idium parvu m, Cyclo spora , or Micro spori mckinley. Not Available [facility] ([facility]) [address] [facility], [place], [address], 06/25/2024 15:12:14 06/17/20 24 06/25/2024 OVA + JORGE ITE EXAM result 1 COMMEN T No ova, cysts , or jorge ites seen. One negat ottoniel speci men does not rule out the possi bilit y of a jorge itic infec tion. Not Available [facility] ([facility]) [address] [facility], [place], [address], 06/25/2024 15:12:14 06/25/20 24 06/25/2024 Creat inine [Mass /volu me] in Blood creatinine creat inine Not Available Not Available 10/22/2024 15:08:21 07/29/2007/30/2024 MICRO SCOPI C EXAMI NATIO N WBC 0-5 /hpf 0-5 Not Available [facility] ([facility]) [address] [facility], [place], [address], 07/30/2024 13:11:47 07/29/2007/30/2024 MICRO SCOPI C EXAMI NATIO N RBC 0-2 /hpf 0-2 Not Available [facility] ([facility]) [address] [facility], [place], [address], 07/30/2024 13:11:47 07/29/2007/30/2024 MICRO SCOPI C EXAMI NATIO N epithelial cells (non renal) >10 /hpf 0-10 abnormal Not Available [facility] ([facility]) [address] [facility], [place], [address], 07/30/2024 13:11:47 07/29/2007/30/2024 MICRO SCOPI C EXAMI NATIO N bacteria FEW nonese en/few abnormal Not Available [facility] ([facility]) [address] [facility], [place], [address], 07/30/2024 13:11:47 07/29/2007/30/2024 URINA LYSIS , ROUTI NE specific gravity 1.009 1.005- 1.030 Not Available [facility] ([facility]) [address] [facility], [place], [address], 07/30/2024 13:11:48 07/29/2007/30/2024 URINA LYSIS , ROUTI NE pH 6.0 5.0-7. 5 Not Available [facility] ([facility]) [address] [facility], [place], [address], 07/30/2024 13:11:48 11/19/20 24 07/30/2024 URINA LYSIS , ROUTI NE urine-color YELLOW yellow Not Available [facility] ([facility]) [address] [facility], [place], [address], 07/30/2024 13:11:48 07/29/20 24 07/30/2024 URINA LYSIS , ROUTI NE appearance CLEAR clear Not Available [facility] ([facility]) [address] [facility], [place], [address], 07/30/2024 13:11:48 07/29/2007/30/2024 URINA LYSIS , ROUTI NE WBC esterase NEGATI VE negati ve Not Available [facility] ([facility]) [address] [facility], [place], [address], 07/30/2024 13:11:48 07/29/20 24 07/30/2024 URINA LYSIS , ROUTI NE protein NEGATI VE negati ve/tra ce Not Available [facility] ([facility]) [address] [facility], [place], [address], 07/30/2024 13:11:48 07/29/20 24 07/30/2024 URINA LYSIS , ROUTI NE glucose NEGATI VE negati ve Not Available [facility] ([facility]) [address] [facility], [place], [address], 07/30/2024 13:11:48 07/29/20 24 07/30/2024 URINA LYSIS , ROUTI NE ketones NEGATI VE negati ve Not Available [facility] ([facility]) [address] [facility], [place], [address], 07/30/2024 13:11:48 07/29/20 24 07/30/2024 URINA LYSIS , ROUTI NE occult blood NEGATI VE negati ve Not Available [facility] ([facility]) [address] [place], [address], 07/30/2024 13:11:48 07/29/20 24 07/30/2024 URINA LYSIS , ROUTI NE bilirubin NEGATI VE negati ve Not Available [facility] ([facility]) [address] [facility], [place], [address], 07/30/2024 13:11:48 07/29/20 24 07/30/2024 URINA LYSIS , ROUTI NE urobilinogen ,semi-qn 0.2 mg/dL 0.2-1. 0 Not Available [facility] ([facility]) [address] [facility], [place], [address], 07/30/2024 13:11:48 07/29/20 24 07/30/2024 URINA LYSIS , ROUTI NE nitrite, urine NEGATI VE negati ve Not Available [facility] ([facility]) [address] [facility], [place], [address], 07/30/2024 13:11:48 07/29/20 24 07/30/2024 URINA LYSIS , ROUTI NE microscopic examination COMMEN T Micro scopi c not indic ated and not perfo rmed. Not Available [facility] ([facility]) [address] [facility], [place], [address], 07/30/2024 13:11:48 04/11/20 24 04/11/2024 US, duple x, carot id arter y No observ ation record ed. [email or web address] [facility] [address], [place], [address], 04/15/2024 23:05:27 06/22/20 24 06/22/2024 CT, chest , w/ contr ast No observ ation record ed. [address], [place], [address], 06/23/2024 17:29:57 06/23/20 24 06/23/2024 US, doppl er echoc ardio gram No observ ation record ed. [place] [id number] [facility] [address], [place], [address], 06/23/2024 17:30:49 06/24/2006/24/2024 daija can cardi olite stres s test (PROC ) No observ ation record ed. [address], [place], [address], 06/26/2024 11:45:28 06/24/20 24 06/24/2024 daija can cardi olite stres s test (PROC ) No observ ation record ed. [place] [id number] [facility] [address], [place], [address], 06/26/2024 11:48:44 06/25/2006/25/2024 CT, abdom en + pelvi s, w/ contr ast No observ ation record ed. [facility] [address] [place], [address], 07/01/2024 14:10:13 07/21/20 24 09/07/2023 MAMMO , scree alba, tomos ynthe sis, bilat eral No observ ation record ed. [facility] Not Available 2023 11:54:24 Result Notes None recorded. Problems Name Problem SNOMED Code Status Onset Date Resolution Date Notes Provider Name and Address Organization Details Recorded Time Herpes zoster 9018137 Active 2023 David Mason MA null, [place] - [facility] 4 17:07:37 Essential hypertension 01889436 Active 2023 Shan Walters MD Attn: Alfredo chavez,[address] [facility], [place], [address], [facility] - [facility] 4 14:31:41 Obesity 152376309 Active 2023 Shan Walters MD Attn: Alfredo chavez,[address] [facility], [place], [address], [facility] - [facility] 4 14:31:42 Postherpetic neuralgia 5735070 Active 2023 Shan Walters MD Attn: Alfredo chavez,[address] [facility], [place], [address], [place] - [facility] 4 14:31:44 Chronic post-concussio n headache 980835347 Active 2023 Shan Walters MD Attn: Alfredo chavez,[address], [place], [address], [place] [facility] 4 14:31:45 Edema of lower extremity 041256324 Active 2023 Shan Walters MD Attn: Alfredo chavez,[address] [facility], [place], [address], [place] [facility] 4 14:31:46 Diarrhea 26431350 Active 2023 David Mason MA null, [place] - [facility] 4 11:59:40 Abdominal pain 15635627 Active 2023 David Mason MA null, [place] - [facility] 11:59:42 Hyperlipidemia [id number] Active 2023 Shan Walters MD Attn: Alfredo chavez,[address] [facility], [place], [address], [place] [facility] 4 22:59:45 Problem Notes None recorded. Procedures Surgical History None recorded. Imaging Results Imaging Date Name Status LastModified by Organization Details LastModified Time 04/11/2024 US, duplex, carotid artery completed [address] [facility] [address], [place], [address], 04/15/2024 23:05:27 06/22/2024 CT, chest, w/ contrast completed [address] [place] [address], [address], 06/23/2024 17:29:57 06/23/2024 US, doppler echocardiogram completed [address], [place], [address], 06/23/2024 17:30:49 06/24/2024 lexiscan cardiolite stress test (PROC) completed [place] [address] [facility] [address], [place], [address], 06/26/2024 11:45:28 06/24/2024 lexiscan cardiolite stress test (PROC) completed [facility] [address] [facility] [address], [place], [address], 06/26/2024 11:48:44 06/25/2024 CT, abdomen + pelvis, w/ contrast completed [facility] [address] [facility], [place], [address], 07/01/2024 14:10:13 09/07/2023 MAMMO, screening, tomosynthesis, bilateral completed [facility] Information not available 07/23/2024 11:54:24 Procedure Notes None recorded. Medical Equipment None Reported. Allergies Allergen ID Allergen Name Allergen Category Reaction Reaction Severity Criticality Documentation Date Start Date Code Code System Note Provider Name and Address Organization Details Recorded Time 422012 niacin medicatio n itching moderate Not available 11/14/2023 7393 RxNorm Not Available Not Available Not Available 685255 Bactrim medicatio n diarrhea moderate Not available 11/14/2023 24401 9 RxNorm Not Available Not Available Not Available Medications Name Sig Start Date Stop Date Status Note LastModified by Organization Details LastModified Time doxycycline hyclate 100 mg capsule TAKE 1 CAPSULE BY MOUTH TWICE DAILY 11/13 completed Not Available Not Available Not Available atorvastati n 10 mg tablet TAKE 1 TABLET BY MOUTH EVERY DAY 02/17 completed Not Available Not Available Not Available azithromyci n 250 mg tablet TAKE 2 TABLETS (500 MG) BY ORAL ROUTE ONCE DAILY FOR 1 DAY THEN 1 TABLET (250 MG) BY ORAL ROUTE ONCE DAILY FOR 4 DAYS 10/13 completed Not Available Not Available Not Available valacyclovi r 1 gram tablet TAKE 1 TABLET BY MOUTH THREE TIMES DAILY FOR 7 DAYS 07/21 completed Not Available Not Available Not Available famotidine 40 mg tablet TAKE 1 TABLET BY MOUTH EVERY DAY 07/21 completed Not Available Not Available Not Available metronidazo le 500 mg tablet TAKE 1 TABLET BY MOUTH THREE TIMES DAILY FOR 10 DAYS 07/21 completed Not Available Not Available Not Available carvedilol 3.125 mg tablet TAKE 1 TABLET BY MOUTH TWICE DAILY active Not Available Not Available No t Available amitriptyli ne 25 mg tablet TAKE 1 TABLET BY MOUTH EVERY NIGHT AT BEDTIME FOR 1 WEEK THEN TAKE 2 TABLETS BY MOUTH EVERY NIGHT AT BEDTIME 07/21 completed Not Available Not Available Not Available rizatriptan 10 mg disintegrat ing tablet prn 10/13 completed Not Available Not Available Not Available pantoprazol e 40 mg tablet,hazel yed release TAKE 1 TABLET BY MOUTH EVERY 12 HOURS active Not Available Not Available No t Available nitroglycer in 400 mcg/spray translingua l SPRAY ONCE UNDER THE TONGUE EVERY 5 MINUTES NEEDED FOR CHEST PAIN. CALL 911 IF YOU HAVE PERSISTEN T CHEST PAIN. MAX OF 3 DOSES PER EPISODE. active Not Available Not Available No t Available gabapentin 300 mg capsule TAKE 1 CAPSULE BY MOUTH EVERY DAY active Not Available Not Available No t Available furosemide 20 mg tablet TAKE 1 TABLET BY MOUTH EVERY DAY NEEDED active Not Available Not Available No t Available gabapentin 100 mg capsule Take 1 capsule every day by oral route at bedtime. 11/18 completed Not Available Not Available Not Available losartan 100 mg tablet TAKE 1 TABLET BY MOUTH DAILY 2024 active Not Available Not Available Not Avai lable ezetimibe 10 mg tablet TAKE 1 TABLET BY MOUTH EVERY DAY 02/17 completed Not Available Not Available Not Available Vitals Date Recorded Body height Body mass index (BMI) Body weight Heart rate Oxygen saturation Oxygen saturation in Arterial blood by Pulse oximetry Systolic blood pressure Diastolic blood pressure Provider Name and Address Organization Details Last Updated DateTime 4 157.48 cm 30.5 kg/m2 94094.9 3 g 82 /min 97 % 97 % 132 mm[Hg] 84 mm[Hg] Carmina Ballard MA [facility] 4 15:28:43 Date Recorded Body height Body mass index (BMI) Body weight Heart rate Oxygen saturation Oxygen saturation in Arterial blood by Pulse oximetry Systolic blood pressure Diastolic blood pressure Provider Name and Address Organization Details Last Updated DateTime 4 157.48 cm 30.8 kg/m2 77171.6 7 g 67 /min 97 % 97 % 130 mm[Hg] 82 mm[Hg] Constance Beyer MA [facility] 4 10:19:34 Date Recorded Body height Body mass index (BMI) Body weight Heart rate Oxygen saturation Oxygen saturation in Arterial blood by Pulse oximetry Systolic blood pressure Diastolic blood pressure Provider Name and Address Organization Details Last Updated DateTime 4 157.48 cm 32.2 kg/m2 96784.3 3 g 77 /min 96 % 96 % 130 mm[Hg] 64 mm[Hg] Constance Beyer MA [facility] 4 10:41:29 Date Recorded Body height Body mass index (BMI) Body weight Heart rate Oxygen saturation Oxygen saturation in Arterial blood by Pulse oximetry Systolic blood pressure Diastolic blood pressure Provider Name and Address Organization Details Last Updated DateTime 4 157.48 cm 32.2 kg/m2 21905.5 4 g 89 /min 97 % 97 % 140 mm[Hg] 70 mm[Hg] Ingrid Abebe MA [facility] 4 11:47:14 Date Recorded Body height Body mass index (BMI) Body weight Heart rate Oxygen saturation Oxygen saturation in Arterial blood by Pulse oximetry Systolic blood pressure Diastolic blood pressure Provider Name and Address Organization Details Last Updated DateTime 5 157.48 cm 32 kg/m2 33008.3 8 g 72 /min 96 % 96 % 132 mm[Hg] 82 mm[Hg] Ingrid Abebe MA [facility] 5 11:06:10 Social History Question Answer Notes LastModified by Organizat ion Details LastModified Time Tobacco Smoking Status Former Smoker Clari Amezquita MA [facility] 11/14/2023 11:08:38 Do You Have An Advance Directive? No Information not available 11/14/2023 What Is Your Level Of Alcohol Consumption? Occasional Information not available 11/14/2023 Are You Blind Or Do You Have Difficulty Seeing? Yes Reading Glasses Information not available 03/12/2024 What Is Your Level Of Caffeine Consumption? Moderate Information not available 11/14/2023 In The 14 Days Before Symptom Onset, Have You Had Close [facility] That Case Was Ill? No Information not available 03/12/2024 In The 14 Days Before Symptom Onset, Have You Had Close Contact With A Person Who Is Under Investigation For COVID-19 While That Person Was Ill? No Information not available 06/12/2024 Have You Been To An Area Known To Be High Risk For COVID-19? No Information not available 03/12/2024 Are You Currently Employed? No Information not available 03/12/2024 Are You Deaf Or Do You Have Serious Difficulty Hearing? No Information not available 03/12/2024 What Type Of Diet Are You Following? REGULAR Information not available 03/12/2024 Are There Any Guns Present In Your Home? No Information not available 06/12/2024 What Was The Date Of Your Most Recent Tobacco Screening? 10/13/2024 Information not available 10/13/2024 What Is Your Relationship Status? Information not available 11/14/2023 Do You Use Your Seat Belt Or Car Seat Routinely? Yes Information not available 11/14/2023 Do You Have Smoke And Carbon Monoxide Detectors In Your Home? Yes Information not available 11/14/2023 How Much Tobacco Do You Smoke? 1 PPD Information not available 11/14/2023 Do You Feel Stressed (tense, Restless, Nervous, Or Anxious, Or Unable To Sleep At Night)? [id number] Information not available 03/12/2024 Do You Use Any Illicit Or Recreational Drugs? No Information not available 11/14/2023 Do You Use Sunscreen Routinely? Yes Information not available 11/14/2023 Has Tobacco Cessation Counseling Been Provided? No Information not available 06/12/2024 On What Date Was Tobacco Cessation Counseling Provided? 10/13/2024 Information not available 10/13/2024 Do You Or Have You Ever Used Any Other Forms Of Tobacco Or Nicotine? No Information not available 11/14/2023 Sex: Female Functional Status Question Answer Note LastModified by Organization D etails LastModified Time Are you able to care for yourself? Yes Information n ot available 03/12/2024 What is your exercise level? None Information not available 03/12/2024 Mental Status None recorded. Family History Relationship Description Onset Age of this Age Resolved Age Notes LastModified by Organization Details LastModified Time Father Congestive heart failure 73 [email or web address] Not available 02/2024 11:09:37 Brother Diabetes mellitus [email or web address] Not available 02/2024 11:09:33 Brother Congestive heart failure [email or web address] Not available 02/2024 11:09:40 Sister Carcinoma in situ of colon [email or web address] Not available 02/2024 11:10:02 Medical History Condition Response Anxiety Disorder N Diabetes N Coronary Artery Disease N High Blood Pressure Y Cancer N Kidney or Bladder Problems N Depression N COPD N Asthma N Allergies Y High Cholesterol Y Hepatitis N Liver Disease N Heart Attack ([place]) N Heart Failure N Gynecological History Statement/Question Response If Post Menopausal, Age at Menopause 47 Obstetrics History GPAL:G 3 P 3 0 0 3 Type Value Full Term 3 Living 3 Total 3 Immunizations Vaccine Type Date Status Note Provider Nam e and Address Organization Details Recorded Time Influenza, high-dose, quadrivalent, PF 3 completed Carmina Ballard [place], [place] [facility] 03/11/2024 13:03:35 Influenza, high-dose, quadrivalent, PF 0 completed Carmina Ballard [place], [place] [facility] 03/11/2024 13:03:35 Influenza, adjuvanted, quadrivalent, PF 2 completed Carmina Ballard [place] [facility] 03/11/2024 13:03:35 Influenza, adjuvanted, quadrivalent, PF 1 completed Carmina Ballard [place] [facility] 03/11/2024 13:03:35 COVID-19, mRNA, LNP-S, PF, 30 mcg/0.3 mL dose 1 completed [place], [place] [facility] 03/11/2024 13:03:35 COVID-19, mRNA, LNP-S, PF, 30 mcg/0.3 mL dose 1 completed [place], [place] [facility] 03/11/2024 13:03:35 Tdap 3 completed [place], [place] - [facility] 03/11/2024 13:03:35 Influenza, high-dose, trivalent, PF 9 completed [place], [place] [facility] 03/11/2024 13:03:35 Influenza, high-dose, trivalent, PF 8 completed GRIS [place], [facility] 03/11/2024 13:03:35 Td (adult), 2 Lf tetanus toxoid, preservative free, adsorbed 1 completed [place], [place] - [facility] 03/11/2024 13:03:35 Hep B, adult 1 completed GRIS [place], [facility] 03/11/2024 13:03:35 Hep B, adult 1 completed GR[place], [facility] 03/11/2024 13:03:35 Hep A, adult 1 completed [place], [place] - [facility] 03/11/2024 13:03:35 Influenza, high-dose, trivalent, PF 4 completed Shan Walters MD Attn: Accounting,[address] [place], [address], [facility] 07/13/2024 21:10:18 Past Encounters Encounter ID Performer Location Encounter Start Date Encounter Closed Date Diagnosis/Indication Diagnosis SNOMED-CT Code Diagnosis ICD10 Code Diagnosis Note [id number] Shan Walters MD [facility] (Adult Med) [address] [place] [address] 11/14/2023 10:56:39 11/14/2023 11:38:35 Essential hypertension 09185221 I10 Edema of l ower extremity 602884978 R60.0 Renewal of prescription 159221497 Z76.0 [id number] Shan Walters MD [facility] [place] [address] [place] [address] 02/18/2024 14:54:24 02/18/2024 17:11:43 Herpes zoster 7796617 B02.9 [id number] Shan Walters MD [facility] (Adult [facility]) [address] [place] [address] 03/12/2024 10:01:38 03/12/2024 10:52:41 Obesity 286282708 E66.8 Essential hypertension 93085166 I10 Postherpet ic neuralgia 4683167 B02.29 Chronic post-concussion headache 040953431 G44.329 Edema of l ower extremity 860665190 R60.0 [id number] Shan Walters MD [facility] [place] [address] [place] [address] 06/12/2024 10:13:36 06/12/2024 12:07:17 Obesity 508648027 E66.9 Diarrhea 40550452 R19.7 Abdominal pain 02144471 R10.9 Administra tion of influenza vaccine 46992925 Z23 Essential hypertension 54360772 I10 Postherpet ic neuralgia 9752461 B02.29 [id number] Shan Walters MD [facility] [place] [address] [place] [address] 07/21/2024 11:19:33 07/21/2024 12:40:54 Body mass index 30+ - obesity 775863805 Z68.32 Obesity 696715291 E66.9 Essential hypertension 42812124 I10 Hyperlipidemia 09198516 E78.5 [id number] Constance Beyer MA [facility] [place] [address] [place] [address] 10/13/2024 10:43:14 10/13/2024 11:56:39 Body mass index 30+ - obesity 359366962 Z68.32 Obesity 086560046 E66.9 Health Concerns Section Related Observation LastModified by Organization Detai ls LastModified Time None Recorded Concern Status LastModified by Organization Details LastModified Time None Recorded Advance Directives Directive N: Payers Encounter Date Sequence Insurance Name Policy Number Policy May Covered Member ID May Member ID Guarantor Name 02/18/2024 1 [facility] (MEDICARE REPLACEMENT/A DVANTAGE - HMO) [id number] Kary Hollingswortheney [id number] Kray Hollingswortheney 03/12/2024 1 [facility] (MEDICARE REPLACEMENT/A DVANTAGE - HMO) [id number] Kary Hollingswortheney [id number] Kary Hollingswortheney 06/12/2024 1 [facility] (MEDICARE REPLACEMENT/A DVANTAGE - HMO) [id number] Kary Hollingswortheney [id number] Kary Hollingswortheney 07/21/2024 1 [facility] (MEDICARE REPLACEMENT/A DVANTAGE - HMO) [id number] Kary Hollingswortheney [id number] Kary Echevarria Notes Date Note Type Note Provider Name and Address Organization Details Recorded Time 02/18/2024 text/html Painful itchy ra sh left back wrapping around to the midline in front Shan Walters MD Attn: Accounting[address] [place], [address], [facility] - [facility] 02/18/2024 22:56:26 03/12/2024 text/html Hypertension no dizziness headaches still present after the head trauma edema doing better leg pain is gone CARL cannot tolerate CPAP . Still has post herpetic neuralgia Shan Walters MD Attn: Accounting, [address] [place], [address], [facility] - [facility] 04/20/2024 14:32:41 06/12/2024 text/html Hypertension no dizziness headaches still present after the head trauma edema doing better leg pain is gone CARL cannot tolerate CPAP . Still has post herpetic neuralgiahas developed a few days of diarrhea with some vague abdominal pain no blood in her stool no mucus urinating fine she has not had any weight loss no nausea no vomiting Shan Walters MD Attn: Accounting[address] [place], [address], [facility] 07/13/2024 21:13:38 07/21/2024 text/html interval history ER chest pain Lexiscan negative. A1c was done 5.9 she was found to have a small diaphragmatic hernia with a little bit of fat and a it was felt that she maybe had some GERD that was contributing to her chest pain her PPI was dosed b.i.d. since that time she has not had anymore pain hypertension 140/80 she was a little high in the hospital as well headaches are stable neuropathic pain seems to be doing good dyslipidemia she is trying to follow a low-fat diet she has had problems with a couple of statins and Zetia Shan Walters MD Attn: Accounting,[address] [facility], [place], [address], [place] [facility] 07/23/2024 23:01:08 OBGyn Episode No OBEpisode recorded.
--- OUTSIDE RECORDS SUMMARY | 2024-10-29 00:32 | XMS_ITS | Referral Summary ---
Author Organization [facility] [employer] Address [address] [place] [address] Care Team Providers Care Personal Carer Name Role Phone Unavailable Primary Care Provider Unavailabl e Source Comments [facility] [employer],non-owned Affiliates and Associated Physician Practices is amultiple site organization consisting of ambulatory clinics and hospital sitesin [place], [place], [place] and [place]. This disclosure is being madepursuant to the Care Everywhere program and may not contain all information available regarding this patient. Last updated 18.[employer] Allergies Active Allergy Reactions Criticality Noted Date [...] 04/19/2023 1:43 PM CDT Plan of Treatment Not on file
--- OUTSIDE RECORDS SUMMARY | 2024-10-29 00:32 | XMS_ITS | Encounter Summary ---
Author Organization [facility] Healthcare Address [address] [place] [address] Care Team Providers Care Supervisor Plate Pasting Name Role Phone Unavailable Primary Care Provider Unavailabl e Reason for Visit * Diagnostic Imaging (Routine) - Closed Specialty Diagnoses / Procedures Referred By Chinedu hardwick Referred To Contact Procedures Breast Imaging Diagnostic Outside Reference Wilberto Yarbrough NP Phone: tel: fax: Referral ID Status Reason Start Date Expiration Date Visits Re quested Visits Authorized [id number] Closed 09/18/2022 10/18/2023 1 1 Encounter Details Date Type Department Care Team (Late st Contact Info) Description 06/03/2019 Hospital Encounter [facility] [address] [place] [address] Social History Tobacco Use Types Packs/Day Years Used Date Smoking Tobacco: Never Smokeless Tobacco: Never Comments Unknown Sex and Gender Information Value Date Recorded Sex Assigned at Not on file 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 Gender Identity Not on file Sexual Orientation Not on file documented as of this encounter Plan of Treatment Not on file documented as of this encounter Procedures Procedure Name Priority Date/Time Associated Diagnosis Comments BREAST IMAGING MG DIAGNOSTIC OUTSIDE REFERENCE Routine 06/03/2019 12:00 AM CDT documented in this encounter Results * Breast Imaging Diagnostic Outside Reference (06/03/2019 12:00 AM CDT) Impressions [facility] - 09/18/2022 8:51 AM COTTON ACREAGE MEASURER These images are for Reference purposes only and have not been reviewed by [facility] Radiology. There will be no report generated by a [facility] Radiologist. Narrative [facility] - 09/18/2022 8:51 AM COTTON ACREAGE MEASURER EXAMINATION: Images For Reference Purposes Only us Wilberto Yarbrough NP IMG MAMMO PROCEDURES Final Result [facility] documented in this encounter Visit Diagnoses Not on filedocumented in this encounter
--- OUTSIDE RECORDS SUMMARY | 2024-10-29 00:32 | XMS_ITS | Encounter Summary ---
Author Organization [facility] Healthcare Address [address] [place] [address] Care Team Providers Care Manager Alliance Name Role Phone Unavailable Primary Care Provider Unavailabl e Reason for Visit * Diagnostic Imaging (Routine) - Closed Specialty Diagnoses / Procedures Referred By Chinedu hardwick Referred To Contact Procedures Breast Imaging US Outside Reference Wilberto Yarbrough NP Phone: tel: fax: Referral ID Status Reason Start Date Expiration Date Visits Re quested Visits Authorized [id number] Closed 08/24/2022 09/23/2023 1 1 Encounter Details Date Type Department Care Team (Late st Contact Info) Description 06/03/2019 Hospital Encounter [facility] [place] [address] Social History Tobacco Use Types Packs/Day Years Used Date Smoking Tobacco: Never Smokeless Tobacco: Never Comments Unknown Sex and Gender Information Value Date Recorded Sex Assigned at Not on file 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 There will be no report generated by a [facility] Radiologist. Narrative [facility] - 08/24/2022 9:57 AM TEACHER EXAMINATION: Images For Reference Purposes Only us Wilberto Yarbrough NP IMG MAMMO PROCEDURES Final Result [facility] documented in this encounter Visit Diagnoses Not on filedocumented in this encounter
--- OUTSIDE RECORDS SUMMARY | 2024-10-29 00:32 | XMS_ITS | Encounter Summary ---
Author Organization [facility] Address [address] [place] [address] Care Team Providers Care Environmental Communications Specialist Name Role Phone Homer Mckeon MD Primary Care Provider + Encounter Details Date Type Department Care Team (Late st Contact Info) Description 06/17/2007 Outpatient Historical HIS [facility] Shana Rodriguez MD [address] [place] [address] [address] [address] Abnormal Mammogram, Unspecified (Primary Dx) Social History Tobacco Use Types Packs/Day Years Used Date Smoking Tobacco: Never Assessed Comments Unknown Sex and Gender Information Value Date Recorded Sex Assigned at Not on file 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
--- OUTSIDE RECORDS SUMMARY | 2024-10-29 00:32 | XMS_ITS | Clinical Summary ---
Author Organization [facility] Address [address] [place] [address] Phone Care Team Providers Care Patternmaker Grader Name Role Phone Homer Mckeon MD Primary Care Provider + Allergies Active Allergy Reactions Criticality Noted Date Comments Niacin Itching Low 12/19/2011 Sulfa Dyne Hives High 12/19/2011 Medications OMEPRAZOLE (PRILOSEC ORAL) Take by mouth. Active LOSARTAN POTASSIUM (LOSARTAN ORAL) Take by mouth. Active FUROSEMIDE (LASIX ORAL) Take by mouth. Active Active Problems No known active problems Family History Medical History Relation Name Comments Heart Disease Father Stroke Maternal Grandfather Breast Cancer Neg Hx Cancer Neg Hx Ovarian Cancer Neg Hx Relation Name Status Comments Brother 1 Alive Brother 2 Daughter Alive Father Maternal Grandfather Maternal Grandmother Mother Paternal Grandfather Paternal Grandmother Sister Alive Son 1 Alive Son 2 Alive Social History Tobacco Use Types Packs/Day Years Used Date Smoking Tobacco: Former Cigarettes Q uit: 09/10/1994 Smokeless Tobacco: Never Alcohol Use Standard Drinks/Week Comments No 0 (1 standard drink = 0.6 oz pur e alcohol) Comments No Sex and Gender Information Value Date Recorded Sex Assigned at Not on file 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 Gender Identity Not on file Sexual Orientation Not on file Occupation Industry Job Start Date Job End Date Not on file Not on file Not on file Not on file Last Filed Vital Signs Vital Sign Reading Time Taken Comments Blood Pressure 130/84 12/22/2013 10:01 AM CDT Pulse - - Temperature - - Respiratory Rate - - Oxygen Saturation - - Inhaled Oxygen Concentration - - Weight 80.7 kg (178 lb) 12/22/2013 10:01 AM CDT Height 158.8 cm (5' 2.5 ) 12/22/2013 10:01 AM CD T Body Mass Index 32.04 12/22/2013 10:01 AM CDT Plan of Treatment Health Maintenance Due Date Last Done Comments DTAP/TDAP/TD VACCINES (1 - Tdap) 1970 COLORECTAL SCREENING 02/26/1996 Colorectal Cancer Screening 02/26/1996 FIT-DNA Q 3 years 02/26/1996 FIT/FOBT Q 1 year 02/26/1996 Flex Sig/CT Colonography Q 5 years 02/26/1996 PNEUMOCOCCAL VACCINE 65+ YEA RS (1 of 1 - PCV) 2001 ZOSTER VACCINE (1 of 2) 2001 BREAST CANCER SCREENING 12/22/2014 12/23/19 14, 12/22/2013, 12/20/2012, Additional history exists INFLUENZA VACCINE (#1) 2024 RSV VACCINE (60+ or ) (1 - 1-dose 75+ series) 2026 OSTEOPOROSIS SCREENING Completed 11/17/2010 Procedures Procedure Name Priority Date/Time Associated Diagnosis Comments MAMMO SCREEN BILAT W OR WO CAD Routine 12/22/2013 9:15 AM CDT Other screening mammogram XR DEXA BONE DENSITY AXIAL 1 OR MORE SITES Routine 11/17/2010 from Last 3 Months or Most Recently Relevant to Health Maintenance Results * MAMMO DIGITAL SCREEN BILAT (12/22/2013 9:15 AM CDT) Anatomical Region Laterality Modality Breast Bilateral Mammography 12/22/2013 9:14 AM CDT Narrative 12/24/2013 8:13 AM CDT DIGITAL SCREENING MAMMOGRAM WITH COMPUTER-ASSISTED DIAGNOSIS 12/22/13 HISTORY: Annual screening study. FINDINGS: The breasts were imaged with digital mammographic technique. There are scattered fibroglandular densities. No significant mass, malignant calcification or architectural distortion is noted. The CAD system does not highlight any suspicious areas. SUMMARY: No mammographic evidence of malignancy. There has been no significant change from prior study of 12/20/2012 and 12/19/2011. RECOMMENDATIONS: Bilateral yearly screening mammogram is recommended. BI-RADS 1 - Negative Dictated from [facility] Procedure Note Carey Collins MD - 12/24/2013 DIGITAL SCREENING MAMMOGRAM WITH COMPUTER-ASSISTED DIAGNOSIS 12/22/13 HISTORY: Annual screening study. FINDINGS: The breasts were imaged with digital mammographic technique. There are scattered fibroglandular densities. No significant mass, malignant calcification or architectural distortion is noted. The CAD system does not highlight any suspicious areas. SUMMARY: No mammographic evidence of malignancy. There has been no significant change from prior study of 12/20/2012 and 12/19/2011. RECOMMENDATIONS: Bilateral yearly screening mammogram is recommended. BI-RADS 1 - Negative Dictated from [facility] us Higinio Hatch MD MAMMO ORDERABLES Final Res ult * XR DEXA BONE DENSITY AXIAL 1 OR MORE SITES (11/17/2010) Anatomical Region Laterality Modality Other us Abstract Provider DIAGNOSTIC IMAGING ORDERABLES Final Result from Last 3 Months or Most Recently Relevant to Health Maintenance Care Teams Patternmaker Grader Relationship Specialty Start Date End Date Homer Mckeon MD PCP - General Internal Medicine 12/11/11
--- OUTSIDE RECORDS SUMMARY | 2024-10-29 00:32 | XMS_ITS | Encounter Summary ---
Author Organization [facility] Address [address] [place] [address] Care Team Providers Care Marine Safety Officer Name Role Phone Homer Luke MD Primary Care Provider + Encounter Details Date Type Department Care Team (Late st Contact Info) Description 11/16/2008 Outpatient Historical [facility] Shana Rodriguez MD [address] [place] [address] [address] [address] Other Screening Mammogram; Diffuse Cystic Mastopathy Social History Tobacco Use Types Packs/Day Years Used Date Smoking Tobacco: Never Assessed Comments Unknown Sex and Gender Information Value Date Recorded Sex Assigned at Not on file 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 Gender Identity Not on file Sexual Orientation Not on file documented as of this encounter Plan of Treatment Not on file documented as of this encounter Procedures Procedure Name Priority Date/Time Associated Diagnosis Comments MAMMO DIAGNOSTIC BILATERAL W OR WO CAD Routine 11/16/2008 9:23 AM CDT documented in this encounter Results * MAMMO DIGITAL DIAG BILAT (11/16/2008 9:23 AM CDT) Anatomical Region Laterality Modality Breast Bilateral Other 11/16/2008 9:23 AM CDT Narrative 11/16/2008 3:32 PM CDT [facility] [address] [place] [place], [place] [address] Admit Date: 11/16/2008 VALENTINA GRIGGS Sex: F Admit Prov: SHANA SANTAMARIA Date: 1950 Primary Care Prov: HOMER LUKE CMRN: [id number] [id number] [facility] Ordering Prov: SHANA SANTAMARIA Accession Number: [id number] Interpretation BILATERAL DIAGNOSTIC DIGITAL MAMMOGRAMS WITH COMPUTER ASSISTED DIAGNOSIS, 11/16/2008 History: Breast pain. Previous calcifications, right breast. Findings: A diagnostic examination was performed bilaterally and is compared to 10/28/2007. Scattered fibroglandular densities are stable. A rounded density in the upper-outer left breast is stable. Calcifications in the right breast are stable. No new mass, suspicious calcifications, or areas of asymmetry or distortion are identified. The images were reviewed using the CAD system. Impression: Stable bilateral diagnostic mammogram. Recommend routine followup. BI-RADS Category: 1, negative. Assessment BIRADS: 1-Negative Recommendation: Normal interval follow-up Dictated by: ANA RAMÍREZ Electronically signed by: ANA RAMÍREZ 11/16/2008 15:32 Transcribed: 11/16/2008 11:13 DKT Procedure Note Ana Ramírez - 11/16/[address] [address] Admit Date: 11/16/2008 VALENTINA GRIGGS Sex: F Admit Prov: SHANA SANTAMARIA Date: 1950 Primary Care Prov: HOMER LUKE CMRN: [id number] [id number] [facility] Ordering Prov: SHANA SANTAMARIA Interpretation BILATERAL DIAGNOSTIC DIGITAL MAMMOGRAMS WITH COMPUTER ASSISTEDDIAGNOSIS, 11/16/2008 History: Breast pain. Previous calcifications, right breast. Findings: A diagnostic examination was performed bilaterally and is comparedto 10/28/2007. Scattered fibroglandular densities are stable. A roundeddensity in the upper-outer left breast is stable. Calcifications in theright breast are stable. No new mass, suspicious calcifications, or areasof asymmetry or distortion are identified. The images were reviewedusing the CAD system. Impression: Stable bilateral diagnostic mammogram. Recommend routine followup. BI-RADS Category: 1, negative. Assessment BIRADS: 1-Negative Recommendation: Normal interval follow-up Dictated by: ANA RAMÍREZ Electronically signed by: ANA RAMÍREZ 11/16/2008 15:32 Transcribed: 11/16/2008 11:13 DKT us Shana Santamaria MD MAMMO ORDERABLES Final Resul t documented in this encounter Visit Diagnoses Diagnosis Other screening mammogram Diffuse cystic mastopathy documented in this encounter Care Teams Marine Safety Officer Relationship Specialty Start Date End Date Homer Luke MD PCP - General Internal Medicine 12/11/11 documented as of this encounter
[2024-10-29 07:55] VITALS: BP 150/88; PULSE 83; RESP 18; TEMP 36.1; O2SAT 97; BMI 31.5
[2024-10-29] MEDS: LACTATED RINGERS 1,000 ML 150 ML IV CONT (07:58)
--- NOTE | 2024-10-29 08:41 | P.PNAN_ITS ---
Anes - Initial Pre Proc Eval Procedure: Operation Date: 10/29/24 09:00 Proposed Procedures p Screening Colonoscopy - Tha Baird MD Date/Time: 10/29/24 08:41 Surgeon: Tha Baird MD Pre Op Diagnosis: screening colon Patient Data Age: 74 Gender: F Height: 1.57 m Weight: 78.2 kg Last Vital Signs Temp 96.9 F L 10/29/24 07:55 Pulse 83 10/29/24 07:55 Resp 18 10/29/24 07:55 BP 150/88 H 10/29/24 07:55 Pulse Ox 97 10/29/24 07:55 O2 Del Method Room Air 10/29/24 07:55 Allergies Allergy/AdvReac Type Severity Reaction Status Date / Time clarithromycin Allergy Unknown Unknown Verified 10/29/24 07:52 ezetimibe Allergy Unknown Unknown Verified 10/29/24 07:52 niacin Allergy Unknown Redness of Verified 10/29/24 07:52 Skin Biugvts-TZD-ZrQ Reductase Allergy Unknown Muscle Pain Verified 10/29/24 07:52 Inhibitor (Myahscz-Oee-Tsa Reductase Inhibitor) Sulfa (Sulfonamide Allergy Unknown Unknown Verified 10/29/24 07:52 Antibiotics) Home Medications ?Medication ?Instructions ?Recorded ?Confirmed ?Type carvedilol 3.125 mg tablet 3.125 mg PO DAILY 06/22/24 10/29/24 History furosemide 20 mg tablet 20 mg PO PRN PRN Edema 06/22/24 10/29/24 History gabapentin 300 mg capsule 300 mg PO HS 06/22/24 10/29/24 History losartan 100 mg tablet 100 mg PO DAILY 06/22/24 10/29/24 History famotidine 40 mg tablet 40 mg PO DAILY PRN Acid Reflux #30 06/24/24 10/29/24 Rx tabs nitroglycerin 400 mcg/spray 1 spray translingual Q5M PRN chest 06/24/24 10/13/24 Rx translingual pain #4.9 grams magnesium 250 mg tablet 250 mg PO DAILY 10/13/24 10/29/24 History vitamin A-vitamin C-vit E-min 1 tablet PO DAILY 10/13/24 10/29/24 History tablet Patient hx anesthesia problems: none Family hx anesthesia problems: none Results Review: All pre-operative results and documents have been reviewed as part of the pre- operative evaluation. [facility] Past Medical History Medical History Peripheral neuropathy Former smoker Cataracts, bilateral Diabetic retinopathy Dyslipidemia Coronary artery disease Diabetes mellitus Hypertension Surgical History Surgical History History of cholecystectomy Family History Family History Sibling Cancer Pacemaker Atrial fibrillation Father Heart disease Congestive heart failure Social History Social History Smoking packs per day: 0.5 Smoking cigarettes per day: 10.0 Years smoked: 10 Smoking pack-years: 5.00 Smoking status: Former smoker Second hand tobacco smoke exposure: Yes Smoking end date: 09/10/95 Alcohol intake: never Alcohol use details: drinks alcohol occasionally, nothing in the last 2 weeks Substance use: never Substance use type: does not use Do You Feel Safe in your Home?: Yes Lack of Transportation: No Lack of Food: Never True Current Housing: I Have Housing Concerned About Future Housing: No Difficulty Paying Gas/Electric Bills: No Difficulty Paying for Meds: No Currently Unemployed: No Education: High School Diploma/GED Difficulty w/ Childcare or Family Care: No Living arrangements: with family Occupation/Education: retired Gender identity (if verbalized by the patient): Female Spiritual care concerns: No Anes - Eval Final PreProcedure Day of Procedure 10/29/24 08:41 Patient weight: obese Lungs: normal air movement Airway: Mallampati scale class III and special considerations (Upper caps. ) Neurological: alert and oriented Last oral intake: >/= 8 hours ASA classification: III Emergent: no Anesthetic plan: proceed Anesthesia type and monitoring: general GIVS and standard monitoring Results Review: All pre-operative results and documents have been reviewed as part of the pre- operative evaluation. Obesity, HTN, stress test 07/03 nml LVEF, no ischemia. Informed Consent: The patient's anesthetic plan and its attendant risks and benefits were discussed with the patient/family/POA. Questions were solicited and answers provided to the satisfaction of the patient/family/POA.
--- NOTE | 2024-10-29 09:08 | PM.HPGS ---
History of Present Illness History of Present Illness Consent: Risks, benefits, and alternatives have been discussed and questions answered. Patient agrees to proceed with procedure. Chief complaint: screening colon Narrative: Kary Echevarria is a 74 year old female with last colonoscopy about 8 years ago, twin sister with colon cancer 2 years ago Review of Systems Review of Systems: All systems reviewed & are unremarkable except as noted in HPI and below PMFSH Past Medical History Medical History (Updated 10/29/24 @ 09:09 by Tha Baird MD) Family history of colon cancer Peripheral neuropathy Former smoker Cataracts, bilateral Diabetic retinopathy Dyslipidemia Coronary artery disease Diabetes mellitus Hypertension Surgical History Surgical History History of cholecystectomy Family History Family History Sibling Cancer Pacemaker Atrial fibrillation Father Heart disease Congestive heart failure Social History Social History Smoking packs per day: 0.5 Smoking cigarettes per day: 10.0 Years smoked: 10 Smoking pack-years: 5.00 Smoking status: Former smoker Second hand tobacco smoke exposure: Yes Smoking end date: 09/10/95 Alcohol intake: never Alcohol use details: drinks alcohol occasionally, nothing in the last 2 weeks Substance use: never Substance use type: does not use Do You Feel Safe in your Home?: Yes Lack of Transportation: No Lack of Food: Never True Current Housing: I Have Housing Concerned About Future Housing: No Difficulty Paying Gas/Electric Bills: No Difficulty Paying for Meds: No Currently Unemployed: No Education: High School Diploma/GED Difficulty w/ Childcare or Family Care: No Living arrangements: with family Occupation/Education: retired Gender identity (if verbalized by the patient): Female Spiritual care concerns: No Meds Home Medications and Allergies Home Medications ?Medication ?Instructions ?Recorded ?Confirmed ?Type carvedilol 3.125 mg tablet 3.125 mg PO DAILY 06/22/24 10/29/24 History furosemide 20 mg tablet 20 mg PO PRN PRN Edema 06/22/24 10/29/24 History gabapentin 300 mg capsule 300 mg PO HS 06/22/24 10/29/24 History losartan 100 mg tablet 100 mg PO DAILY 06/22/24 10/29/24 History famotidine 40 mg tablet 40 mg PO DAILY PRN Acid Reflux #30 06/24/24 10/29/24 Rx tabs nitroglycerin 400 mcg/spray 1 spray translingual Q5M PRN chest 06/24/24 10/13/24 Rx translingual pain #4.9 grams magnesium 250 mg tablet 250 mg PO DAILY 10/13/24 10/29/24 History vitamin A-vitamin C-vit E-min 1 tablet PO DAILY 10/13/24 10/29/24 History tablet Allergies Allergy/AdvReac Type Severity Reaction Status Date / Time clarithromycin Allergy Unknown Unknown Verified 10/29/24 07:52 ezetimibe Allergy Unknown Unknown Verified 10/29/24 07:52 niacin Allergy Unknown Redness of Verified 10/29/24 07:52 Skin Ayipvtq-WCG-ObZ Reductase Allergy Unknown Muscle Pain Verified 10/29/24 07:52 Inhibitor (Dyrguxi-Cgw-Knj Reductase Inhibitor) Sulfa (Sulfonamide Allergy Unknown Unknown Verified 10/29/24 07:52 Antibiotics) Vital Signs Vital Signs - 24 hr 10/29/24 07:55 Temperature 96.9 F L Pulse Rate 83 Respiratory Rate 18 Blood Pressure 150/88 H Pulse Oximetry 97 Oxygen Delivery Room Air Exam Const: General: comfortable and no acute distress HENMT: Face/Nose/Sinus: Normal nares present Eyes: General: appearance normal, both eyes and all related structures Neck: Neck: no JVD Resp: Auscultation: clear to auscultation bilaterally Cardio: Rate: regular rate Rhythm: regular rhythm GI: Inspection: non-distended GI Palp: Yes Soft to palpation Skin: General skin exam: normal color Neuro: Speech: normal speech Extrem: General: normal to inspection Psych: Mental Status: mental status grossly normal Assessment and Plan Assessment and plan (1) Family history of colon cancer: Code(s): Z80.0 - Family history of malignant neoplasm of digestive organs Status: Acute Assessment and Plan: colonoscopy
[2024-10-29 09:29] VITALS: BP 104/57; PULSE 76; RESP 17; O2SAT 95
[2024-10-29 09:39] VITALS: BP 121/76; PULSE 72; RESP 14; O2SAT 97
[2024-10-29 09:49] VITALS: BP 144/80; PULSE 78; RESP 16; O2SAT 96
== END 2024-10-29 10:05 | disposition home or self-care (01) ==
PROVIDERS: PCP Internal Medicine; Visit Provider Internal Medicine Gastroenterology
PROC: 0DJD8ZZ Inspection of Lower Intestinal Tract, Via Natural or Artificial Opening Endoscopic (ICD-10-PCS; CPT 45378; principal; 2024-10-29 09:00)
DX: Z12.11 Encounter for screening for malignant neoplasm of colon (principal); D12.3 Benign neoplasm of transverse colon; D12.4 Benign neoplasm of descending colon; K64.8 Other hemorrhoids; E78.5 Hyperlipidemia, unspecified; I25.10 Atherosclerotic heart disease of native coronary artery without angina pectoris; I10 Essential (primary) hypertension; E11.319 Type 2 diabetes mellitus with unspecified diabetic retinopathy without macular edema; G62.9 Polyneuropathy, unspecified; E66.9 Obesity, unspecified; Z68.31 Body mass index [BMI] 31.0-31.9, adult; Z98.890 Other specified postprocedural states; Z90.49 Acquired absence of other specified parts of digestive tract; Z87.891 Personal history of nicotine dependence; Z80.0 Family history of malignant neoplasm of digestive organs; Z82.49 Family history of ischemic heart disease and other diseases of the circulatory system
CPT/HCPCS: 45385; 88305; J2003; J2704; J7120